=== PATIENT | male | born 1950 | race Hispanic/Latino ===

== ENCOUNTER 2017-05-13 15:23 | Inpatient (IN) | payer BC ==
[2017-05-13 15:25] VITALS: BMI 22.2
[2017-05-13] MEDS ORDERED: Iodixanol 320 MG/ML 100 ML BOTTLE IV ONE (15:31)
--- NOTE | 2017-05-13 15:40 | CT ---
EXAM: CT Head Without Intravenous Contrast CLINICAL HISTORY: 58 years old, male; Signs and symptoms; Other: Weakness; Additional info: Code stroke TECHNIQUE: Axial computed tomography images of the head/brain without intravenous contrast. All CT scans at this facility use one or more dose reduction techniques, viz.: automated exposure control; ma/kV adjustment per patient size (including targeted exams where dose is matched to indication; i.e. head); or iterative reconstruction technique. COMPARISON: No relevant prior studies available. FINDINGS: Brain: There is mild ill-defined patchy hypodensity within the bilateral cerebral periventricular white matter, consistent with chronic microvascular ischemic changes. There is mild diffuse cerebral atrophy present, consistent with this patient's age. The cortical sullivan / white matter interfaces are preserved throughout the brain. Examination of the posterior fossa demonstrates no significant abnormality. No hemorrhage. Ventricles: The ventricular system demonstrates mild diffuse compensatory enlargement. Bones/joints: Unremarkable. No acute fracture. Soft tissues: Unremarkable. Vasculature: There is no hyperdense MCA sign. Sinuses: Unremarkable as visualized. No acute sinusitis. Mastoid air cells: Unremarkable as visualized. No mastoid effusion. IMPRESSION: No acute infarction, masses or hemorrhage is seen. No acute intracranial abnormality is identified. Diffuse age-related cerebral atrophy and mild chronic microvascular white matter ischemic changes, without evidence of an acute intracranial abnormality. If there is a high clinical concern for acute stroke, MRI of the brain with diffusion imaging or short-term followup CT may be considered for further evaluation.
[2017-05-13 16:07] LABS: BASO # 0.03 K/mm3 (0.0-2.0); BASO % 0.4 % (0.0-3.0); EOS % 0.4 % (1.5-5.0); GRAN # 5.68 (1.4-6.5); GRAN % 83.7 % (50.0-68.0); HEMATOCRIT 41.4 % (42.0-52.0); LYMPH # 0.6 (1.2-3.4); LYMPH % 9.3 % (22.0-35.0); MEAN CELL VOLUME 87.5 fl (80.0-105.0); MEAN CORPUSCULAR HEMOGLOBIN 28.3 pg (25.0-35.0); MEAN CORPUSCULAR HGB CONC 32.4 g/dl (31.0-37.0); MEAN PLATELET VOLUME 10.7 fl (7.0-11.0); MONO # 0.4 (0.1-0.6); MONO % 6.2 % (1.0-6.0); RED CELL DISTRIBUTION WIDTH 13.9 % (11.5-14.5); WHITE BLOOD COUNT 6.8 10^3/ul (4.5-11.0)
[2017-05-13 16:16] LABS: ALB/GLOB RATIO 1.6 (1.1-1.8); ALKALINE PHOSPHATASE 62 U/L (38-126); ALT/SGPT 35 U/L (7-56); AST/SGOT 25 U/L (17-59); BILIRUBIN,TOTAL 1.7 mg/dL (0.2-1.3); BLOOD UREA NITROGEN 29 mg/dL (7-21); CALCIUM 9.2 mg/dL (8.4-10.5); CARBON DIOXIDE 28 mmol/L (21-33); CHLORIDE 99 mmol/L (98-107); CHOLESTEROL 171 mg/dL (130-200); GFR AFRICAN-AMERICAN > 60; GLUCOSE,RANDOM 280 mg/dL (70-110); MAGNESIUM 1.8 mg/dL (1.7-2.2); PHOSPHOROUS 3.2 mg/dL (2.5-4.5); SODIUM 137 mmol/L (132-148); TOTAL PROTEIN 5.9 g/dL (5.8-8.3)
[2017-05-13 16:17] LABS: INR 1.44 (0.93-1.08); PARTIAL THROMBOPLASTIN TIME 28.4 Seconds (25.1-36.5)
[2017-05-13 16:30] LABS: TROPONIN I 0.05 ng/mL
[2017-05-13] MEDS ORDERED: ALTEPLASE IV ONE (16:30)
[2017-05-13] MEDS ORDERED: WATER FOR INJECTION IV ONE (16:30)
[2017-05-13 17:01] LABS: VENOUS BLOOD GAS BASE EXCESS 2.3 mmol/L (0.0-2.0); VENOUS BLOOD PH 7.51 (7.32-7.43)
--- NOTE | 2017-05-13 17:03 | RAD ---
HISTORY: stroke alert COMPARISON: No prior. FINDINGS: LUNGS: No active pulmonary disease. PLEURA: No significant pleural effusion identified, no pneumothorax apparent. CARDIOVASCULAR: Moderate cardiomegaly. Sternal wires. Single lead pacemaker. OSSEOUS STRUCTURES: No significant abnormalities. VISUALIZED UPPER ABDOMEN: Normal. OTHER FINDINGS: None. IMPRESSION: No active disease.
--- NOTE | 2017-05-13 17:18 | CP.PCM.HP ---
<ZionMaggie - Last Filed: 05/13/17 17:48> History of Present Illness - History of Present Illness History of Present Illness: H&P for Hospitalist, Sandra Donovan PGY2 This is a 66yo M with past medical history of CAD s/p CABG and AICD, NIDDM who came to ED for weakness. Patient reports this morning he "wasn't feeling right" . He reports he was sitting on the cough and then he went to get up to answer his neighbor at the door when his "legs went weak". He states that he did not lose consciousness or hit his head. As per ED, the patient's neighbor kept knocking at the door around 12pm and the patient was not answering. The neighbor had the fire department open the door and they found the patient on the floor. Upon arrival to ED, patient was flaccid on L upper and lower extremity. Code stroke was called and tPA was not given. When I examined that patient, he was A&O x [address] King on Monday this week for swelling in his legs and was prescribed Furosemide. He denies having any chest pain, headache, shortness of breath, nausea/vomiting/diarrhea, fever/ chills, numbness/tingling, dysuria or hematuria. Past medical history: CAD, NIDDM, HTN Past surgical history: ICD placement, CABG (12yrs ago), Hernia repair (40yrs ago ) Home meds: Lisinopril, Plavix, Metformin/Glyburide, Coreg, ASA, Furosemide, Atorvastatin Allergies: NKDA Social history: Former smoker- quit 12yrs ago, denies EtOH or drug use. Lives alone, does not drive, but otherwise takes care of himself PMD: Dr. Hans King Present on Admission - Present on Admission Any Indicators Present on Admission: No Review of Systems - Review of Systems All systems: reviewed and no additional remarkable complaints except Review of Systems: + weakness Past Patient History - Infectious Disease Hx of Infectious Diseases: None - Past Social History Smoking Status: Former Smoker (quit 12yrs ago- used to smoke 1ppd) Alcohol: None Drugs: Denies Home Situation {Lives}: Alone - CARDIAC Hx Atrial Fibrillation: Yes Hx Hypertension: Yes Hx Pacemaker: Yes - ENDOCRINE/METABOLIC Hx Diabetes Mellitus Type 2: Yes - PSYCHIATRIC Hx Substance Use: No Meds Allergies/Adverse Reactions: Allergies Allergy/AdvReac Type Severity Reaction Status Date / Time No Known Allergies Allergy Verified 05/13/17 20:11 Physical Exam - Constitutional Appears: No Acute Distress - Head Exam Head Exam: ATRAUMATIC, NORMAL INSPECTION, NORMOCEPHALIC - Eye Exam Eye Exam: Normal appearance, PERRL Pupil Exam: NORMAL ACCOMODATION, PERRL - ENT Exam ENT Exam: Mucous Membranes Moist - Respiratory Exam Respiratory Exam: Clear to Auscultation Bilateral, NORMAL BREATHING PATTERN. absent: Rales, Rhonchi, Wheezes - Cardiovascular Exam Cardiovascular Exam: REGULAR RHYTHM, +S1, +S2. absent: Gallop, Rubs, Systolic Murmur Additional comments: AICD in L chest in place - GI/Abdominal Exam GI & Abdominal Exam: Normal Bowel Sounds, Soft. absent: Mass, Rebound, Rigid, Tenderness - Extremities Exam Extremities exam: Positive for: pedal edema (+ 2 bilaterally ). Negative for: normal inspection (redness and abrasion on bilateral shins and knees ) - Neurological Exam Neurological exam: Alert, Oriented x3 - Expanded Neurological Exam Expanded Patient oriented to: person, place, time Cranial nerves: EOM's Intact: Normal, Facial Palsey w/Forehead Movement: Abnormal Left, Facial Sensation: Normal, Tongue Deviation: Normal Cerebellar Function: Finger to Nose: Abnormal Left Upper motor neuron: Babinski Sign: Normal, Amadou Neglect: Normal, Pronator Drift : Abnormal Left, Sensory Extinction: Normal Sensory exam: Lower Extremity 2 Point Discrimination: Normal, Lower Extremity Light Touch: Normal, Upper Extremity 2 Point Discrimination: Normal, Upper Extremity Light Touch: Normal Neuro motor strength exam: Left Upper Extremity: 5, Right Upper Extremity: 4, Left Lower Extremity: 4, Right Lower Extremity: 5 Coma Scale Eye Opening: SPONTANEOUS Coma Scale Motor Response: OBEYS COMMANDS Coma Scale Verbal: Oriented Coma Scale Total: 15 - Psychiatric Exam Psychiatric exam: Normal Affect, Normal Mood - Skin Skin Exam: Abrasion (on shins and knees bilaterally ), Dry, Warm Results - Vital Signs Recent Vital Signs: Last Vital Signs Temp 98 F 05/13/17 15:28 Pulse 95 H 05/13/17 16:34 Resp 18 05/13/17 16:34 BP 123/77 05/13/17 16:34 Pulse Ox 98 05/13/17 16:34 - Labs Result Diagrams: 05/13/17 15:54 05/13/17 15:54 Labs: Laboratory Results - last 24 hr 05/13/17 05/13/17 05/13/17 15:54 15:54 15:54 WBC 6.8 RBC 4.73 Hgb 13.4 L Hct 41.4 L MCV 87.5 MCH 28.3 MCHC 32.4 RDW 13.9 Plt Count 164 MPV 10.7 Gran % 83.7 H Lymph % (Auto) 9.3 L Schleicher % (Auto) 6.2 H Eos % (Auto) 0.4 L Baso % (Auto) 0.4 Gran # 5.68 Lymph # 0.6 L Schleicher # 0.4 Eos # 0.0 Baso # 0.03 PT 15.8 H INR 1.44 H APTT 28.4 pO2 VBG pH VBG pCO2 VBG HCO3 VBG Total CO2 VBG O2 Sat (Calc) VBG Base Excess VBG Potassium Glucose Lactate FiO2 Sodium 137 Potassium 4.0 Chloride 99 Carbon Dioxide 28 Anion Gap 15 BUN 29 H Creatinine 1.4 Est GFR ( Amer) > 60 Est GFR (Non-Af Amer) 52 Random Glucose 280 H Calcium 9.2 Phosphorus 3.2 Magnesium 1.8 Total Bilirubin 1.7 H AST 25 ALT 35 Alkaline Phosphatase 62 Troponin I 0.05 Total Protein 5.9 Albumin 3.6 Globulin 2.3 Albumin/Globulin Ratio 1.6 Triglycerides 99 Cholesterol 171 LDL Cholesterol Direct 133 H HDL Cholesterol 35 Venous Blood Potassium BBK History Checked 05/13/17 05/13/17 15:54 16:52 WBC RBC Hgb Hct MCV MCH MCHC RDW Plt Count MPV Gran % Lymph % (Auto) Schleicher % (Auto) Eos % (Auto) Baso % (Auto) Gran # Lymph # Schleicher # Eos # Baso # PT INR APTT pO2 181 H VBG pH 7.51 H VBG pCO2 31.0 L VBG HCO3 24.7 VBG Total CO2 25.7 VBG O2 Sat (Calc) 100.0 H VBG Base Excess 2.3 H VBG Potassium 6.7 H* Glucose 265 H Lactate 2.6 H FiO2 21.0 Sodium 137.0 Potassium Chloride 102.0 Carbon Dioxide Anion Gap BUN Creatinine Est GFR ( Amer) Est GFR (Non-Af Amer) Random Glucose Calcium Phosphorus Magnesium Total Bilirubin AST ALT Alkaline Phosphatase Troponin I Total Protein Albumin Globulin Albumin/Globulin Ratio Triglycerides Cholesterol LDL Cholesterol Direct HDL Cholesterol Venous Blood Potassium 6.7 H* BBK History Checked No verified bt Assessment & Plan - Assessment and Plan (Free Text) Assessment: This is a 66yo M with past medical history of CAD s/p CABG and AICD, NIDDM admitted for acute CVA. Plan: 1. CVA - Head CT negative - CTA of Head/Neck was negative for significant stenosis or occlusion - Neuro consulted - Neuro check q4h - Passed bedside swallow - ASA, Lipitor - Aspiration precaution - Physical therapy eval 2. Leg edema - Hx of CAD and possible CHF (no echo on record) - EKG showed NSR with prolonged QT - CXR showed no active disease - Cardio consulted - Will obtain echo and trend troponin - Continue Plavix 3. Dehydration - BUN/Cr slightly elevated - NS@50 - Monitor I&O 4. Hx of HTN - Normotensive on admission - Hold BP meds for permissive HTN for CVA - Continue to monitor BP 5. NIDDM - Will obtain HgbA1c - ISS, blood glucose monitoring - Carb consistent/heart healthy diet GI ppx: Pepcid DVT ppx: SCDs Case seen, reviewed and discussed with Dr. Luu. Sandra Donovan PGY2 - Date & Time Date: 05/13/17 Time: 17:56 <Qiana Luu - Last Filed: 05/14/17 17:32> Results - Vital Signs Recent Vital Signs: Last Vital Signs Temp 97.8 F 05/14/17 12:00 Pulse 98 H 05/14/17 14:00 Resp 18 05/14/17 12:00 BP 109/69 05/14/17 12:00 Pulse Ox 99 05/14/17 06:00 - Labs Result Diagrams: 05/14/17 06:30 05/14/17 06:30 Labs: Laboratory Results - last 24 hr 05/13/17 05/13/17 05/13/17 17:00 20:25 21:50 WBC RBC Hgb Hct MCV MCH MCHC RDW Plt Count MPV Gran % Lymph % (Auto) Schleicher % (Auto) Eos % (Auto) Baso % (Auto) Gran # Lymph # Schleicher # Eos # Baso # PT INR pCO2 pO2 59 H HCO3 ABG pH ABG Total CO2 ABG O2 Saturation ABG O2 Content ABG Base Excess ABG Hemoglobin ABG Carboxyhemoglobin POC ABG HHb (Measured) ABG Methemoglobin ABG O2 Capacity VBG pH 7.43 VBG pCO2 41.0 VBG HCO3 27.2 VBG Total CO2 28.5 H VBG O2 Sat (Calc) 94.0 H VBG Base Excess 2.6 H VBG Potassium 4.3 Hgb O2 Saturation Sodium 137.0 Chloride 100.0 Glucose 233 H Lactate 2.4 H FiO2 21.0 Potassium Carbon Dioxide Anion Gap BUN Creatinine Est GFR ( Amer) Est GFR (Non-Af Amer) Random Glucose Calcium Total Bilirubin AST ALT Alkaline Phosphatase Lactate Dehydrogenase 617 Total Creatine Kinase 139 Troponin I 0.28 H* D Total Protein Albumin Globulin Albumin/Globulin Ratio Venous Blood Potassium 4.3 Blood Type Confirm A POSITIVE 05/14/17 05/14/17 05/14/17 06:30 06:30 06:30 WBC 6.5 RBC 4.78 Hgb 13.6 L Hct 41.9 L MCV 87.7 MCH 28.5 MCHC 32.5 RDW 14.0 Plt Count 173 MPV 10.7 Gran % 67.9 Lymph % (Auto) 22.3 Schleicher % (Auto) 7.6 H Eos % (Auto) 1.7 Baso % (Auto) 0.5 Gran # 4.38 Lymph # 1.4 Schleicher # 0.5 Eos # 0.1 Baso # 0.03 PT 14.9 H INR 1.35 H pCO2 pO2 HCO3 ABG pH ABG Total CO2 ABG O2 Saturation ABG O2 Content ABG Base Excess ABG Hemoglobin ABG Carboxyhemoglobin POC ABG HHb (Measured) ABG Methemoglobin ABG O2 Capacity VBG pH VBG pCO2 VBG HCO3 VBG Total CO2 VBG O2 Sat (Calc) VBG Base Excess VBG Potassium Hgb O2 Saturation Sodium 136 Chloride 102 Glucose Lactate FiO2 Potassium 3.9 Carbon Dioxide 25 Anion Gap 13 BUN 23 H Creatinine 1.3 Est GFR ( Amer) > 60 Est GFR (Non-Af Amer) 57 Random Glucose 127 H Calcium 9.0 Total Bilirubin 1.3 AST 22 ALT 29 Alkaline Phosphatase 67 Lactate Dehydrogenase 542 Total Creatine Kinase 114 Troponin I 0.56 H* D Total Protein 5.8 Albumin 3.5 Globulin 2.3 Albumin/Globulin Ratio 1.5 Venous Blood Potassium Blood Type Confirm 05/14/17 16:30 WBC RBC Hgb Hct MCV MCH MCHC RDW Plt Count MPV Gran % Lymph % (Auto) Schleicher % (Auto) Eos % (Auto) Baso % (Auto) Gran # Lymph # Schleicher # Eos # Baso # PT INR pCO2 34 L pO2 167.0 H HCO3 23.6 ABG pH 7.45 ABG Total CO2 24.6 ABG O2 Saturation 100.2 H ABG O2 Content 19.6 ABG Base Excess 0.2 ABG Hemoglobin 14.1 ABG Carboxyhemoglobin 2.2 H POC ABG HHb (Measured) -0.2 L ABG Methemoglobin 0.8 ABG O2 Capacity 19.6 VBG pH VBG pCO2 VBG HCO3 VBG Total CO2 VBG O2 Sat (Calc) VBG Base Excess VBG Potassium Hgb O2 Saturation 97.2 Sodium Chloride Glucose Lactate FiO2 36.0 Potassium Carbon Dioxide Anion Gap BUN Creatinine Est GFR ( Amer) Est GFR (Non-Af Amer) Random Glucose Calcium Total Bilirubin AST ALT Alkaline Phosphatase Lactate Dehydrogenase Total Creatine Kinase Troponin I Total Protein Albumin Globulin Albumin/Globulin Ratio Venous Blood Potassium Blood Type Confirm Attending/Attestation - Attestation I have personally seen and examined this patient.: Yes I have fully participated in the care of the patient.: Yes I have reviewed all pertinent clinical information: Yes Notes (Text): I have seen and examined the patient at bedside. Agree with the above note with the following additions/ exceptions: Briefly this is 66 year old male with history of CAD s/p CABG, AICD, DM-2, HTN, former smoker who was brought by EMS and code stroke was called. TPA was not given as he presented outside 4.5 hours window and clinically symptoms were improving. He initially failed bedside swallow eval. NHISS was 10. Patient is more awake now as compare to when he originally presented. CT head negative. MRI cannot be done as he has AICD. CT neck is pending. Neurologist on board. Another bedside swallow eval will be done. Will start aspirin and lipitor if he will pass swallow eval. Echo pending. PT eval will be ordered. Upon discharge patient will follow up with Dr King. Patient states that he follows up with Dr King regularly and does not have PMD. Dr Qiana Luu
--- NOTE | 2017-05-13 17:27 | CT ---
PROCEDURE: CT Angiography of the neck with contrast HISTORY: stroke alert COMPARISON: None available. TECHNIQUE: Contiguous axial images of the neck were obtained from the level of the skull-base to the superior mediastinum in the arteriographic phase of enhancement. Coronal and sagittal reformats or also generated. IV contrast dose: 100 cc of Visipaque 320 Radiation Dose - DLP: 514 mGy-cm This CT exam was performed using one or more of the following dose reduction techniques: Automated exposure control, adjustment of the mA and/or kV according to patient size, and/or use of iterative reconstruction technique. FINDINGS: RIGHT CAROTID ARTERIES: Common Carotid Artery: Normal. Carotid Bifurcation: Normal. Internal Carotid Artery:There is a critical stenosis of the proximal right internal carotid probably greater than 95 percent. This area is heavily calcified. The finding is best appreciated on axial image 199 series 3. External Carotid Artery (proximal branches): Normal. LEFT CAROTID ARTERIES: Common Carotid Artery: Normal. Carotid Bifurcation: Normal. Internal Carotid Artery:There is an approximate 50 percent stenosis of the left internal carotid at its origin. External Carotid Artery (proximal branches): Severe narrowing at its origin VERTEBRAL ARTERIES: Right Vertebral Artery: Dominant Left Vertebral Artery: The origin is obscured by overlying densely enhanced veins. The left vertebral is diminished in size compared to the right OTHER FINDINGS: The report concurs with the preliminary [facility] report IMPRESSION: Critical stenosis of the proximal right internal carotid. 50 percent stenosis of the proximal left internal carotid PROCEDURE: CT Angiography of the Brain. HISTORY: stroke alert COMPARISON: None available. TECHNIQUE: CT angiography of the intracranial arteries was performed. Coronal and sagittal maximum intensity projection reformated images were generated. This CT exam was performed using one or more of the following dose reduction techniques: Automated exposure control, adjustment of the mA and/or kV according to patient size, and/or use of iterative reconstruction technique. FINDINGS: INTERNAL CEREBRAL ARTERIES: Unremarkable. The skull base, petrous, cavernous and supraclinoid segments are bilaterally widely patent. ANTERIOR CEREBRAL ARTERIES: Unremarkable. A1 and A2 segments are widely patent. Smaller distal branches unremarkable, as visualized. MIDDLE CEREBRAL ARTERIES: Unremarkable. M1 and M2 segments are widely patent. Perisylvian branches grossly symmetric. POSTERIOR CIRCULATION: Basilar Artery: Unremarkable. Distal Vertebral Arteries: Unremarkable. Posterior Cerebral Arteries: Unremarkable. Posterior Inferior Cerebellar Arteries: Unremarkable. ANEURYSM/ VASCULAR MALFORMATIONS: None. OTHER FINDINGS: The report concurs with the preliminary [facility] report IMPRESSION: No significant intracranial stenosis or occlusion
--- NOTE | 2017-05-13 17:34 | ED PDOC ---
Arrival/HPI - General Chief Complaint: Weakness/Neurological Deficit Time Seen by Provider: 05/13/17 15:24 Historian: Patient, EMS - History of Present Illness Narrative History of Present Illness (Text): 05/13/17 16:00 A 58 year old male, whose past medical history includes pacemaker, diabetes, asthma, and hypertension, presents to the emergency department brought in by EMS for stroke alert. At first the patient stated that he had left sided weakness which began 1 hour prior to arrival. The patient denies any trauma, chest pain, fever, shortness of breath, cough, or any other complaints at this time. Upon further questioning the patient states his symptoms began around 11: 00 this morning and when a friend came to visit him at 12:30 he was unable to answer the door. Time/Duration: Prior to Arrival, 1/2 hour, 1 hour Symptom Onset: Sudden Severity Level: Mild Activities at Onset: Light Context: Home Past Medical History - Provider Review Nursing Documentation Reviewed: Yes - Infectious Disease Hx of Infectious Diseases: None - Cardiac Hx Atrial Fibrillation: Yes Hx Hypertension: Yes Hx Pacemaker: Yes - Endocrine/Metabolic Hx Diabetes Mellitus Type 2: Yes - Psychiatric Hx Substance Use: No Family/Social History - Physician Review Nursing Documentation Reviewed: Yes Family/Social History: No Known Family HX Smoking Status: Unknown If Ever Smoked Hx Alcohol Use: No Hx Substance Use: No Allergies/Home Meds Allergies/Adverse Reactions: Allergies No Known Allergies Allergy (Unverified 05/13/17 15:25) Home Medications: Home Meds Medication Instructions Recorded Confirmed Albuterol Sulfate [Proair Hfa] 1 puff INH DAILY 05/13/17 05/13/17 Amoxicillin [Amoxil 500 mg Cap] 500 mg PO TID 05/13/17 05/13/17 Carvedilol [Coreg] 25 mg PO BID 05/13/17 05/13/17 Clopidogrel [Plavix] 75 mg PO DAILY 05/13/17 05/13/17 Glyburide/Metformin HCl 5 mg PO BID 05/13/17 05/13/17 [Glyburide-Metformin 5-500 mg] Lisinopril [Zestril] 40 mg PO DAILY 05/13/17 05/13/17 Review of Systems - Physician Review All systems were reviewed & negative as marked: Yes - Review of Systems Constitutional: absent: Fevers Respiratory: absent: SOB, Cough Cardiovascular: absent: Chest Pain Neurological: Other (left sided weakness) Physical Exam Vital Signs Reviewed: Yes Vital Signs Temp Pulse Resp BP Pulse Ox 05/13/17 17:37 97.7 F 95 H 19 120/51 L 95 05/13/17 16:34 95 H 18 123/77 98 05/13/17 15:28 98 F 80 20 110/68 97 Temperature: Afebrile Blood Pressure: Normal Pulse: Regular Respiratory Rate: Normal Appearance: Positive for: Well-Appearing, Non-Toxic, Comfortable Pain Distress: None Mental Status: Positive for: Alert and Oriented X 3 Finger Stick Blood Glucose: 314 - Systems Exam Head: Present: Atraumatic, Normocephalic Pupils: Present: PERRL Extroacular Muscles: Present: EOMI Conjunctiva: Present: Normal Mouth: Present: Moist Mucous Membranes Neck: Present: Normal Range of Motion Respiratory/Chest: Present: Clear to Auscultation, Good Air Exchange, Other ( chest wall pacemaker). No: Respiratory Distress, Accessory Muscle Use Cardiovascular: Present: Murmurs (systolic murmur), Normal S1, S2 Abdomen: Present: Normal Bowel Sounds. No: Tenderness, Distention, Peritoneal Signs Back: Present: Normal Inspection Upper Extremity: Present: Normal Inspection. No: Cyanosis, Edema Lower Extremity: Present: Normal Inspection. No: Edema Neurological: Present: GCS=15, CN II-XII Intact, Speech Normal, Other (left sided cranial nerve neglect; decreased strength in upper and lower extremities; no sensory deficits) Skin: Present: Warm, Dry, Normal Color. No: Rashes Psychiatric: Present: Alert, Oriented x 3, Normal Insight, Normal Concentration Medical Decision Making ED Course and Treatment: 05/13/17 16:00 Impression: A 58 year old male who is possible code stroke Differential Diagnosis included but are not limited to: Plan: -- EKG -- Chest X-ray -- ECHO comp -- Labs -- Aspirin, lipitor, plavix, insulin, protonix -- Reassess and disposition Progress Notes: Spoke to Dr. Parish who initially recommended TPA, but upon getting further history he now recommends aspirin therapy and he will admit ad accept the patient to telemetry. 05/13/17 16:39 EKG: Ordered, reviewed, and independently interpreted the EKG. Rate : 98 BPM Rhythm : NSR Interpretation : No ST-segment elevations or depressions, no T-wave inversions, normal intervals. Comparison : No previous EKG for comparison. - Critical Care Critical Care Minutes: 60 minutes - Lab Interpretations Lab Results: 05/13/17 15:54 05/13/17 15:54 Lab Results 05/13/17 15:54: Blood Type Pending, Antibody Screen Pending, BBK History Checked No verified bt 05/13/17 15:54: Sodium 137, Potassium 4.0, Chloride 99, Carbon Dioxide 28, Anion Gap 15, BUN 29 H, Creatinine 1.4, Est GFR ( Amer) > 60, Est GFR ( Non-Af Amer) 52, Random Glucose 280 H, Calcium 9.2, Phosphorus 3.2, Magnesium 1.8, Total Bilirubin 1.7 H, AST 25, ALT 35, Alkaline Phosphatase 62, Troponin I 0.05, Total Protein 5.9, Albumin 3.6, Globulin 2.3, Albumin/Globulin Ratio 1.6, Triglycerides 99, Cholesterol 171, LDL Cholesterol Direct 133 H, HDL Cholesterol 35 05/13/17 15:54: PT 15.8 H, INR 1.44 H, APTT 28.4 05/13/17 15:54: WBC 6.8, RBC 4.73, Hgb 13.4 L, Hct 41.4 L, MCV 87.5, MCH 28.3, MCHC 32.4, RDW 13.9, Plt Count 164, MPV 10.7, Gran % 83.7 H, Lymph % (Auto) 9.3 L, [place] % (Auto) 6.2 H, Eos % (Auto) 0.4 L, Baso % (Auto) 0.4, Gran # 5.68, Lymph # 0.6 L, [place] # 0.4, Eos # 0.0, Baso # 0.03 - RAD Interpretation Radiology Orders: 05/13/17 15:25 CTA HEAD & NECK BUNDLE [CT] Stat HEAD W/O (CODE STROKE) [CT] Stat CHEST PORTABLE [RAD] Stat - Medication Orders Current Medication Orders: Aspirin (Aspirin Chewable) 81 mg PO DAILY ANAHY Atorvastatin Calcium (Lipitor) 80 mg PO DIN ANAHY Clopidogrel Bisulfate (Plavix) 75 mg PO DAILY ANAHY Insulin Human Regular (Humulin R Med) 0 units SC ACHS ANAHY PRN Reason: Protocol Pantoprazole Sodium (Protonix Ec Tab) 40 mg PO ACB ANAHY Discontinued Medications Aspirin (Aspirin Supp) 300 mg RC STAT STA Stop: 05/13/17 16:43 Last Admin: 05/13/17 16:58 Dose: 300 mg MAR Pain/Vitals Document 05/13/17 16:58 LA (Rec: 05/13/17 17:06 LA [id number]) Pain Reassessment Is This A Pain ReAssessment? No Sleep Is patient sleeping during reassessment? No Presence of Pain Presence of Pain No NIHSS Scale ([place]) Time Performed: 15:30 - How Severe is the Stoke Baseline Level of Consciousness: 1=Drowsy LOC to Questions: 1=One correct LOC to commands: 0=Obeys both correctly Best Gaze: 1=Partial gaze palsy Visual: 0=No visual loss Facial: 0=Normal Motor Arm - Left: 3=No effort against gravity (falls immediately) Motor Arm - Right: 0=No drift Motor Leg - Left: 3=No effort against gravity (falls immediately) Motor Leg - Right: 0=No drift Limb Ataxia: 0=Absent Sensory: 0=Normal Best Language: 0=No aphasia Dysarthia: 0=Normal articulation Extinction & Inattention (Neglect): 1=Partial neglect (mild fermin-attention) Score: 10 Risk Level: Mod Stroke Risk rTPA Inclusion/Exclusion - Refusal of Treatment Patient Refused Treatment: No - Inclusion Criteria for Altepase Patient is 18 years or Older: Yes The Clinical Diagnosis of Ischemic Stroke That is Causing a Potentially Disabling Neurological Deficit: Yes Time of Onset is Well Established to be Less Than 270 Minute Before Treatment Would Begin: No Risk/Benefit Discussed With Patient/Family Member Present: Yes - Warning to TPA With Conditions Condition: Rapid Improvement - Scribe Statement The provider has reviewed the documentation as recorded by the Kleveribyessy Webber Provider Scribe Attestation: All medical record entries made by the Scribe were at my direction and personally dictated by me. I have reviewed the chart and agree that the record accurately reflects my personal performance of the history, physical exam, medical decision making, and the department course for this patient. I have also personally directed, reviewed, and agree with the discharge instructions and disposition. Disposition/Present on Arrival - Present on Arrival Any Indicators Present on Arrival: No History of DVT/PE: No History of Uncontrolled Diabetes: No Urinary Catheter: No History of Decub. Ulcer: No History Surgical Site Infection Following: None - Disposition Have Diagnosis and Disposition been Completed?: Yes Diagnosis: TIA (transient ischemic attack) Disposition: HOSPITALIZED Disposition Time: 16:45 Patient Plan: Admission, Telemetry Condition: GUARDED
[2017-05-13] MEDS ORDERED: Sodium Chloride 0.9% 1,000 ML IV SCH (18:00)
--- NOTE | 2017-05-13 18:32 | CON ---
DATE: HISTORY OF PRESENT ILLNESS: This is a 58-year-old male who came to hospital and a code stroke was called. The patient's CAT scan of the head was done which is normal and cerebral atrophy and called to evaluate the patient. A 58-year-old white male who came to the emergency room with code stroke with weakness on the left side which is improving and do not known exactly when these symptoms started and appears it is over the 3-hour window period. Symptoms are improving. PAST MEDICAL HISTORY: Not significant. PHYSICAL EXAMINATION: HEENT: Normocephalic and atraumatic. NEUROLOGIC: Awake and oriented to self. Cranial nerve II-XII were tested. Pupils reactive. EOM intact. Visual mesa full. Motor examination; weakness of the left upper 1 to 2/5 and left lower 2/5. Both plantaris are downgoing. Sensory appears intact, slightly decreased on the left side. Cerebellar and gait deferred. IMPRESSION AND PLAN: Right hemispheric stroke and the patient is not a candidate for TPA. The patient is already on Plavix. We will add aspirin and workup in progress. Continue present management. We will follow up. CT of the head was done with report pending. Buzz Parish MD
[2017-05-13 21:16] LABS: VENOUS BLOOD GAS BASE EXCESS 2.6 mmol/L (0.0-2.0); VENOUS BLOOD PH 7.43 (7.32-7.43)
[2017-05-13] MEDS: Insulin Reg-MEDIUM-Coverage SC SCH (21:30)
[2017-05-13 22:50] LABS: TROPONIN I 0.28 ng/mL
[2017-05-14] MEDS ORDERED: Pneumococcal 23-Valent Vaccine IM ONE (00:09)
[2017-05-14] MEDS ORDERED: Influenza Vaccine 60 mcg/0.5 mL SYR (4YR UP) IM ONE (00:09)
[2017-05-14 07:04] LABS: BASO # 0.03 K/mm3 (0.0-2.0); BASO % 0.5 % (0.0-3.0); EOS # 0.1 (0.0-0.7); EOS % 1.7 % (1.5-5.0); GRAN # 4.38 (1.4-6.5); GRAN % 67.9 % (50.0-68.0); HEMATOCRIT 41.9 % (42.0-52.0); LYMPH # 1.4 (1.2-3.4); LYMPH % 22.3 % (22.0-35.0); MEAN CELL VOLUME 87.7 fl (80.0-105.0); MEAN CORPUSCULAR HEMOGLOBIN 28.5 pg (25.0-35.0); MEAN CORPUSCULAR HGB CONC 32.5 g/dl (31.0-37.0); MEAN PLATELET VOLUME 10.7 fl (7.0-11.0); MONO # 0.5 (0.1-0.6); MONO % 7.6 % (1.0-6.0); WHITE BLOOD COUNT 6.5 10^3/ul (4.5-11.0)
[2017-05-14 07:45] LABS: INR 1.35 (0.93-1.08)
[2017-05-14 07:55] LABS: ALB/GLOB RATIO 1.5 (1.1-1.8); ALKALINE PHOSPHATASE 67 U/L (38-126); ALT/SGPT 29 U/L (7-56); AST/SGOT 22 U/L (17-59); BILIRUBIN,TOTAL 1.3 mg/dL (0.2-1.3); BLOOD UREA NITROGEN 23 mg/dL (7-21); CARBON DIOXIDE 25 mmol/L (21-33); CHLORIDE 102 mmol/L (98-107); GFR AFRICAN-AMERICAN > 60; GLUCOSE,RANDOM 127 mg/dL (70-110); POTASSIUM 3.9 mmol/L (3.6-5.0); SODIUM 136 mmol/L (132-148); TOTAL PROTEIN 5.8 g/dL (5.8-8.3); TROPONIN I 0.56 ng/mL
[2017-05-14] MEDS: Insulin Reg-MEDIUM-Coverage SC SCH ×4 (08:28→23:25)
[2017-05-14] MEDS: Pantoprazole 40 mg EC Tab PO SCH (08:33)
--- NOTE | 2017-05-14 09:13 | CARD ---
APPROVED REPORT EKG Measurement Heart [id number] <Conclusion> Normal sinus rhythm LBBB STTW changes
--- NOTE | 2017-05-14 09:25 | CARD ---
APPROVED REPORT EKG Measurement Heart [id number] <Conclusion> Normal sinus rhythm LBBB STTW changes No change
--- NOTE | 2017-05-14 09:39 | CARD ---
APPROVED REPORT EKG Measurement Heart [id number] [place] 142P55 [id number] <Conclusion> Normal sinus rhythm Possible Left atrial enlargement LBBB STTW changes No change
[2017-05-14] MEDS ORDERED: Enoxaparin 40 mg Syringe SC SCH (10:00)
--- NOTE | 2017-05-14 11:07 | CP.PCM.PN ---
<Tyree Cruz - Last Filed: 05/14/17 11:03> Subjective - Date & Time of Evaluation Date of Evaluation: 05/14/17 Time of Evaluation: 11:03 - Subjective Subjective: Pt seen and examined at bedside. Pt with no acute events overnight as per nursing. Pt does still admit to left sided weakness. He also states he has no trouble speaking. Pt denies CP, SOB, N/V/D, fever, chills. Objective - Vital Signs/Intake and Output Vital Signs (last 24 hours): Temp Pulse Resp BP Pulse Ox 98.9 F 89 18 109/69 99 05/14/17 06:00 05/14/17 06:00 05/14/17 06:00 05/14/17 06:00 05/14/17 06:00 Intake and Output: 05/14/17 05/14/17 06:59 18:59 Intake Total 600 600 Balance 600 600 - Medications Medications: Current Medications Aspirin (Aspirin Chewable) 81 mg PO DAILY [facility] Last Admin: 05/14/17 10:36 Dose: 81 mg Atorvastatin Calcium (Lipitor) 80 mg PO DIN ANAHY Clopidogrel Bisulfate (Plavix) 75 mg PO DAILY [facility] Last Admin: 05/14/17 10:35 Dose: 75 mg Heparin Sodium (Porcine) (Heparin) 5,000 units SC Q12 ANAHY PRN Reason: Protocol Last Admin: 05/14/17 10:36 Dose: 5,000 units Insulin Human Regular (Humulin R Med) 0 units SC ACHS [facility] PRN Reason: Protocol Last Admin: 05/14/17 08:28 Dose: Not Given Pantoprazole Sodium (Protonix Ec Tab) 40 mg PO ACB [facility] Last Admin: 05/14/17 08:33 Dose: 40 mg - Labs Labs: 05/14/17 06:30 05/14/17 06:30 PT 14.9 SECONDS (9.4-12.5) H 05/14/17 06:30 INR 1.35 (0.93-1.08) H 05/14/17 06:30 APTT 28.4 Seconds (25.1-36.5) 05/13/17 15:54 - Constitutional Appears: Non-toxic, No Acute Distress - Head Exam Head Exam: ATRAUMATIC, NORMAL INSPECTION, NORMOCEPHALIC - Eye Exam Eye Exam: EOMI - ENT Exam ENT Exam: Mucous Membranes Moist - Respiratory Exam Respiratory Exam: Clear to Ausculation Bilateral, NORMAL BREATHING PATTERN. absent: Rales, Rhonchi, Wheezes - Cardiovascular Exam Cardiovascular Exam: RRR, +S1, +S2 - GI/Abdominal Exam GI & Abdominal Exam: Soft, Normal Bowel Sounds. absent: Tenderness - Extremities Exam Extremities Exam: absent: Calf Tenderness, Pedal Edema - Neurological Exam Neurological Exam: Alert, Awake, CN II-XII Intact, Oriented x3 Neuro motor strength exam: Left Upper Extremity: 5, Left Lower Extremity: 3, Right Lower Extremity: 5 Additional comments: Sensation intact b/l - Psychiatric Exam Psychiatric exam: Normal Affect, Normal Mood - Skin Skin Exam: Intact, Normal Color, Warm Assessment and Plan - Assessment and Plan (Free Text) Plan: 66 y/o M with past medical history of CAD s/p CABG and AICD, NIDDM presents with acute ischemic right sided CVA in the setting of NSTEMI. Pt initially had head CT which was negative and Head and neck CTA which showed critical stenosis of the right ICA and 50% stenosis of the left ICA. tPA was not given as patient may have been outside 4.5 hour window. Pt to have speech therapy eval today. Pt also initially had troponin of 0.05 and second troponin elevated to 0.28. After discussion with cardiology, pt will not be anticoagulated at this time due to possible transformation of ischemic to hemorrhagic stroke. Pt will have another Head CT today. Will continue to follow closely. 1. Acute right ischemic CVA - Head CT negative, will order repeat today - Head and neck CTA showed critical stenosis of the right ICA and 50% stenosis of the left ICA - Neuro consulted, recommend ASA - Neuro check q4h - Passed bedside swallow, speech therapy eval today - Aspiration precaution - Physical therapy eval 2. NSTEMI - Troponin 0.05, 0.28, 0.56 - No anticoagulation at this time - Continue ASA and plavix - Echo ordered - Cardiology following, Dr. García 3. Hx of HTN - Allow permissive HTN - Hold HTN meds - Continue to monitor BP 4. NIDDM - HgbA1c 7.6% - ISS - Will monitor glucose closely 5. PPX - Pepcid - SCDs Anthony, PGY-2 <Qiana Luu - Last Filed: 05/15/17 17:17> Objective - Vital Signs/Intake and Output Vital Signs (last 24 hours): Temp Pulse Resp BP Pulse Ox 97.5 F L 105 H 21 114/72 99 05/15/17 13:39 05/15/17 14:00 05/15/17 13:39 05/15/17 13:39 05/14/17 06:00 Intake and Output: 05/15/17 05/15/17 06:59 18:59 Intake Total 1080 720 Output Total 200 Balance 1080 520 - Medications Medications: Current Medications Albuterol/Ipratropium (Duoneb 3 Mg/0.5 Mg (3 Ml) Ud) 3 ml IH [id number] [facility] Last Admin: 05/15/17 13:45 Dose: 3 ml Albuterol/Ipratropium (Duoneb 3 Mg/0.5 Mg (3 Ml) Ud) 3 ml IH Q2H PRN PRN Reason: Shortness of Breath Last Admin: 05/14/17 21:32 Dose: 3 ml Aspirin (Aspirin Chewable) 81 mg PO DAILY [facility] Last Admin: 05/15/17 10:00 Dose: 81 mg Atorvastatin Calcium (Lipitor) 40 mg PO DIN ANAHY Clopidogrel Bisulfate (Plavix) 75 mg PO DAILY [facility] Last Admin: 05/15/17 10:00 Dose: 75 mg Heparin Sodium (Porcine) (Heparin) 5,000 units SC Q12 ANAHY PRN Reason: Protocol Last Admin: 05/15/17 10:00 Dose: 5,000 units Meropenem 1 gm/ Dextrose 100 mls @ 100 mls/hr IVPB Q8 ANAHY PRN Reason: Protocol Stop: 05/15/17 22:59 Last Admin: 05/15/17 14:48 Dose: 100 mls/hr Insulin Human Regular (Humulin R Med) 0 units SC ACHS ANAHY PRN Reason: Protocol Last Admin: 05/15/17 12:59 Dose: 3 units Pantoprazole Sodium (Protonix Ec Tab) 40 mg PO ACB [facility] Last Admin: 05/15/17 10:00 Dose: 40 mg - Labs Labs: 05/15/17 06:30 05/15/17 06:30 PT 14.9 SECONDS (9.4-12.5) H 05/14/17 06:30 INR 1.35 (0.93-1.08) H 05/14/17 06:30 APTT 28.4 Seconds (25.1-36.5) 05/13/17 15:54 Attending/Attestation - Attestation I have personally seen and examined this patient.: Yes I have fully participated in the care of the patient.: Yes I have reviewed all pertinent clinical information, including history, physical exam and plan: Yes Notes (Text): I have seen and examined the patient at bedside. Agree with the above note with the following additions/ exceptions: Briefly this is 66 year old male with history of CAD s/p CABG, AICD, DM-2, HTN, former smoker who was brought by EMS and code stroke was called. TPA was not given as he presented outside 4.5 hours window and clinically symptoms were improving. NHISS was 10. Patient is more awake now as compare to when he originally presented. CT head negative. MRI cannot be done as he has AICD. CT neck showed critical stenosis in R ICA and 50 % in L ICA. Vascular consult placed. He passed swallow eval . Continue aspirin, plavix and lipitor. Echo pending. He is tachypenic today. Abd did not show any hypoxemia and revealed hyperventilation. BNP and d dimer was elevated. Troponins were also elevated. Patient became diaphoretic in the evening. Lasix and one dose of lovenox given. CT revealed bilateral infiltrates probably due to aspiration. Procal ordered and meropenem started. Will consult ID. PT eval will be ordered. Upon discharge patient will follow up with Dr King. Patient states that he follows up with Dr King regularly and does not have PMD. Dr Qiana Luu
--- NOTE | 2017-05-14 12:19 | CT ---
PROCEDURE: CT HEAD WITHOUT CONTRAST. HISTORY: follow up COMPARISON: None available. TECHNIQUE: Axial computed tomography images were obtained through the head/brain without intravenous contrast. Radiation dose: Total exam DLP = 775 mGy-cm. This CT exam was performed using one or more of the following dose reduction techniques: Automated exposure control, adjustment of the mA and/or kV according to patient size, and/or use of iterative reconstruction technique. FINDINGS: HEMORRHAGE: No intracranial hemorrhage. BRAIN: No mass effect or edema. No atrophy or chronic microvascular ischemic changes. VENTRICLES: Unremarkable. No hydrocephalus. CALVARIUM: Unremarkable. PARANASAL SINUSES: Unremarkable as visualized. No significant inflammatory changes. MASTOID AIR CELLS: Unremarkable as visualized. No inflammatory changes. OTHER FINDINGS: None. IMPRESSION: No acute findings
[2017-05-14] MEDS ORDERED: Albuterol-Ipratrop 3 mg / 0.5 (3 ml) UD IH PRN (15:03)
[2017-05-14 16:40] LABS: ARTERIAL BLOOD GAS HCO3 23.6 mmol/L (21-28); ARTERIAL BLOOD GAS O2 CAPACITY 19.6 mL/dl (16-24); ARTERIAL BLOOD GAS O2 CONTENT 19.6 ML/dl (15-23); ARTERIAL BLOOD GAS PH 7.45 (7.35-7.45); ARTERIAL BLOOD HGB O2 SAT 97.2 % (95.0-98.0); CARBOXYHEMOGLOBIN 2.2 % (0.5-1.5); HHB -0.2 % (0-5); METHEMOGLOBIN 0.8 % (0.0-3.0)
--- NOTE | 2017-05-14 17:06 | RAD ---
HISTORY: shortness of breath COMPARISON: 05/13/2017 FINDINGS: LUNGS: There is a new patchy infiltrate in the right lower lobe. There is also probable infiltrate at the left base. The diaphragm is obscured. PLEURA: No significant pleural effusion identified, no pneumothorax apparent. CARDIOVASCULAR: Moderate cardiomegaly OSSEOUS STRUCTURES: No significant abnormalities. VISUALIZED UPPER ABDOMEN: Normal. OTHER FINDINGS: None. IMPRESSION: New bibasilar infiltrates.
[2017-05-14] MEDS ORDERED: Enoxaparin 60 mg Syringe SC ONE (17:15)
[2017-05-14 18:06] LABS: TROPONIN I 0.3 ng/mL
[2017-05-14] MEDS ORDERED: Iohexol 350 MG/100 ML VIAL ONE (18:16)
[2017-05-14] MEDS: Albuterol-Ipratrop 3 mg / 0.5 (3 ml) UD IH SCH (19:32)
--- NOTE | 2017-05-14 19:57 | CT ---
EXAM: CT Angiography Chest With Intravenous Contrast EXAM DATE/TIME: 05/14/2017 5:39 PM CLINICAL HISTORY: 58 years old, male; Signs and symptoms; Other: R/O pe; Prior surgery TECHNIQUE: Axial computed tomographic angiography images of the chest with intravenous contrast using pulmonary embolism protocol. All CT scans at this facility use one or more dose reduction techniques, viz.: automated exposure control; ma/kV adjustment per patient size (including targeted exams where dose is matched to indication; i.e. head); or iterative reconstruction technique. MIP reconstructed images were created and reviewed. Coronal and sagittal reformatted images were created and reviewed. CONTRAST: 96 mL of OMNIPAQUE 350 administered intravenously. COMPARISON: No relevant prior studies available. FINDINGS: LIMITATIONS: Moderate respiratory motion artifact. PULMONARY ARTERIES: Exam is limited for the detection of pulmonary emboli secondary to motion artifact. Allowing for this, no definite pulmonary emboli are seen. AORTA: Exam is nondiagnostic for the detection of aortic dissection because of suboptimal enhancement of the aorta. LUNGS: Areas of dense consolidation in the lower lobes bilaterally, greater on the right, most likely representing a combination of compressive atelectasis related to the bilateral pleural effusions and dependent atelectasis. No evidence of diffuse pulmonary vascular congestion. PLEURAL SPACE: Bilateral pleural effusions, moderate to large on the right and [id number] on the left. No pneumothorax is seen. Negative. HEART: Heart appears moderately to markedly enlarged. Sternotomy wires and multiple mediastinal surgical clips noted, most likely from prior CABG. No evidence of significant pericardial effusion. BONES/JOINTS: Chronic-appearing vertebral compression fracture involving the T7 vertebra, associated with 50% vertebral height loss. SOFT TISSUES: No acute abnormality of the visualized soft tissues seen. LYMPH NODES: No evidence of diffuse lymphadenopathy. TUBES, LINES AND DEVICES: Implantable cardioverter defibrillator (AICD) in place. IMPRESSION: - Bilateral pleural effusions, larger on the right. - Moderate to marked cardiomegaly. - Bilateral pulmonary consolidation, most likely representing atelectasis. - Otherwise, no evidence of significant acute process. No definite pulmonary embolism is seen, although motion artifact limits evaluation. - See above for remaining findings.
[2017-05-14] MEDS: Meropenem 1 GM in Dextrose 5% In Water 100 ML IVPB SCH (23:32)
[2017-05-15] MEDS: Albuterol-Ipratrop 3 mg / 0.5 (3 ml) UD IH SCH ×4 (01:56→20:28)
[2017-05-15] MEDS: Meropenem 1 GM in Dextrose 5% In Water 100 ML IVPB SCH ×3 (06:08→22:46)
[2017-05-15 06:52] LABS: BASO # 0.04 K/mm3 (0.0-2.0); BASO % 0.5 % (0.0-3.0); EOS # 0.1 (0.0-0.7); EOS % 0.9 % (1.5-5.0); GRAN # 5.31 (1.4-6.5); GRAN % 70.5 % (50.0-68.0); HEMATOCRIT 43.6 % (42.0-52.0); LYMPH # 1.5 (1.2-3.4); LYMPH % 19.3 % (22.0-35.0); MEAN CELL VOLUME 87.4 fl (80.0-105.0); MEAN CORPUSCULAR HEMOGLOBIN 27.9 pg (25.0-35.0); MEAN CORPUSCULAR HGB CONC 31.9 g/dl (31.0-37.0); MONO # 0.7 (0.1-0.6); MONO % 8.8 % (1.0-6.0); RED CELL DISTRIBUTION WIDTH 14.1 % (11.5-14.5); WHITE BLOOD COUNT 7.5 10^3/ul (4.5-11.0)
[2017-05-15 07:05] LABS: ALB/GLOB RATIO 1.5 (1.1-1.8); ALKALINE PHOSPHATASE 70 U/L (38-126); ALT/SGPT 32 U/L (7-56); AST/SGOT 26 U/L (17-59); BILIRUBIN,TOTAL 1.3 mg/dL (0.2-1.3); BLOOD UREA NITROGEN 22 mg/dL (7-21); CARBON DIOXIDE 27 mmol/L (21-33); CHLORIDE 99 mmol/L (98-107); GFR AFRICAN-AMERICAN > 60; GLUCOSE,RANDOM 135 mg/dL (70-110); POTASSIUM 3.8 mmol/L (3.6-5.0); SODIUM 136 mmol/L (132-148)
[2017-05-15] MEDS: Insulin Reg-MEDIUM-Coverage SC SCH ×4 (09:54→22:45)
[2017-05-15] MEDS: Pantoprazole 40 mg EC Tab PO SCH (10:00)
--- NOTE | 2017-05-15 10:41 | CON ---
DATE: 05/15/2017 CONSULTATION INDICATIONS: Stroke, positive troponins, history of coronary artery disease and CABG. HISTORY OF PRESENT ILLNESS: This is a 58-year-old man, known to Dr. Pa, who was admitted on 05/13/2017 with weakness, not feeling well, fall and apparent stroke with left-sided weakness, who is found to have a critical right internal carotid artery stenosis and is admitted to telemetry. He has had elevated troponins and a Cardiology consultation was requested. There is no chest pain or shortness of breath. There is no orthopnea, PND, palpitations, edema, fever, chills, cough, sputum production, hemoptysis, abdominal pain, nausea, vomiting, diarrhea, constipation, melena. PAST MEDICAL HISTORY: Notable for coronary artery disease with a remote coronary bypass operation. He has an ICD in place. There is a history of diabetes, hypertension, inguinal hernia repair. He is a former smoker. There is no history of congestive heart failure, angina, arrhythmia, rheumatic fever or gout. CURRENT MEDICATIONS: Include aspirin, albuterol, subcu heparin, insulin, Lasix, Lipitor, Plavix, Protonix. ALLERGIES: THERE ARE NO KNOWN MEDICATION ALLERGIES. FAMILY HISTORY: Noncontributory. SOCIAL HISTORY: He lives alone. He is a former smoker. He does not drink alcohol significantly. REVIEW OF SYSTEMS: Ten-point review of systems is unremarkable, although somewhat limited. PHYSICAL EXAMINATION: GENERAL: He is a well-developed male, lying in bed on telemetry, in no acute distress. VITAL SIGNS: Notable for sinus rhythm to sinus tachycardia 93 to 100 beats per minute. He is afebrile, blood pressure 118/81, respirations 18, O2 sat 99-100%. HEENT: Reveals no neck vein distention. I do not appreciate a carotid bruit. Mucous membranes moist. No thyroid enlargement. Conjunctivae pink. NECK: Supple. LUNGS: Lung mesa, scattered rhonchi. HEART: Examination of the heart revealed normal first and second heart sounds. Soft systolic murmur along the left sternal border. ABDOMEN: Soft. Bowel sounds present. No mass, organomegaly, tenderness, rebound or guarding. No CVA tenderness. No palpable abdominal aortic aneurysm. EXTREMITIES: Revealed no cyanosis or clubbing. There was mild peripheral edema. NEUROLOGIC: He is awake. Weakness on the left side has been recorded. PSYCHIATRIC: Normal as to mood and affect. SKIN: Warm and dry. No rash or cellulitis. LABORATORY AND IMAGING: A chest x-ray portable study on 05/13/2017 reveals no active disease. A repeat chest x-ray on 05/14/2017 reveals new bibasilar infiltrates. A CT scan of the chest on the reveals no evidence of acute pulmonary embolus, although it is a limited study. There are bilateral pleural effusions, right greater than left. Atelectasis is noted. A CT scan of the head was unremarkable. A CT scan of the head and neck revealed a severe right internal carotid artery stenosis approximately 95% and a moderate left internal carotid artery stenosis approximately 50%. A second CT scan of the head on 05/14/2017 reveals no acute findings. White count normal, platelet count normal. Hemoglobin 13.9, hematocrit 43.6. PT, INR, PTT unremarkable. D-dimer elevated at 445. Blood gases are noted. Electrolytes: BUN, creatinine unremarkable. Blood sugars are noted. Magnesium 1.8. LFTs unremarkable except for initial total bilirubin of 1.7, repeat 1.3. CK is 139 and 114. Troponins 0.28, 0.56, 0.30. BNP 15,000. IMPRESSION: Joel Delgado is a 58-year-old man with known coronary artery disease, prior myocardial infarction, coronary bypass surgery, implantable cardioverter-defibrillator, admitted with left-sided weakness, stroke and severe cerebrovascular disease with a 95% right internal carotid artery stenosis discovered. He has a history of diabetes, hypertension and is a former smoker. At this point, it appears that his primary diagnosis is acute stroke related to a severe right internal carotid artery stenosis. Elevated troponins could be related to underlying myocardial ischemia or myocardial infarction or may be related to his acute illness and transient renal dysfunction. There has been no chest pain reported. His chest x-ray shows bilateral infiltrates and effusion, possibly representing pneumonia. There is no evidence of acute pulmonary embolism. I have discussed the case with Dr. Luu. An echocardiogram is ordered. He is on aspirin and Plavix. He is having an Interventional Radiology evaluation. He is being followed by Neurology. He is on subcutaneous heparin for deep venous thrombosis prophylaxis. With regard to anticoagulation in the setting of a possible [id number] myocardial infarction, this may be too hazardous given his recent stroke, but I would defer to Dr. Parish with regard to anticoagulation in this setting. Indications of acute eyp-JW-sjecxcklu myocardial infarction are moderate and the elevated troponins may indeed be secondary to his stroke and illness with renal dysfunction. We will monitor inputs and outputs, labs. I will review the echocardiogram once it is completed. He will be considered for treatment of the severe right internal carotid artery stenosis, possibly with a vascular intervention. I will follow along with you. I will make additional recommendations based on his clinical course. Alex García MD MTDD
--- NOTE | 2017-05-15 12:17 | CP.PCM.PN ---
<Lamar Carpenter - Last Filed: 05/15/17 17:46> Subjective - Date & Time of Evaluation Date of Evaluation: 05/15/17 Time of Evaluation: 09:11 - Subjective Subjective: PGY-[address] Parish's service Patient was seen and examined at bedside. No acute distress, patient is eating breakfast. He denies any headache, dizziness or focal weakness. Objective - Vital Signs/Intake and Output Vital Signs (last 24 hours): Temp Pulse Resp BP Pulse Ox 98.1 F 93 H 100 H 118/81 99 05/15/17 06:00 05/15/17 06:00 05/15/17 06:00 05/15/17 06:00 05/14/17 06:00 Intake and Output: 05/15/17 05/15/17 06:59 18:59 Intake Total 1080 Balance 1080 - Medications Medications: Current Medications Albuterol/Ipratropium (Duoneb 3 Mg/0.5 Mg (3 Ml) Ud) 3 ml IH [id number] [facility] Last Admin: 05/15/17 08:00 Dose: 3 ml Albuterol/Ipratropium (Duoneb 3 Mg/0.5 Mg (3 Ml) Ud) 3 ml IH Q2H PRN PRN Reason: Shortness of Breath Last Admin: 05/14/17 21:32 Dose: 3 ml Aspirin (Aspirin Chewable) 81 mg PO DAILY [facility] Last Admin: 05/15/17 10:00 Dose: 81 mg Atorvastatin Calcium (Lipitor) 40 mg PO DIN [facility] Clopidogrel Bisulfate (Plavix) 75 mg PO DAILY [facility] Last Admin: 05/15/17 10:00 Dose: 75 mg Heparin Sodium (Porcine) (Heparin) 5,000 units SC Q12 [facility] PRN Reason: Protocol Last Admin: 05/15/17 10:00 Dose: 5,000 units Insulin Human Regular (Humulin R Med) 0 units SC ACHS [facility] PRN Reason: Protocol Last Admin: 05/15/17 09:54 Dose: Not Given Pantoprazole Sodium (Protonix Ec Tab) 40 mg PO ACB [facility] Last Admin: 05/15/17 10:00 Dose: 40 mg - Labs Labs: 05/15/17 06:30 05/15/17 06:30 PT 14.9 SECONDS (9.4-12.5) H 05/14/17 06:30 INR 1.35 (0.93-1.08) H 05/14/17 06:30 APTT 28.4 Seconds (25.1-36.5) 05/13/17 15:54 - Head Exam Head Exam: ATRAUMATIC, NORMAL INSPECTION, NORMOCEPHALIC - Eye Exam Eye Exam: EOMI, Normal appearance - ENT Exam ENT Exam: Mucous Membranes Moist - Respiratory Exam Respiratory Exam: Clear to Ausculation Bilateral, NORMAL BREATHING PATTERN. absent: Respiratory Distress - Cardiovascular Exam Cardiovascular Exam: REGULAR RHYTHM. absent: Tachycardia, Murmur - GI/Abdominal Exam GI & Abdominal Exam: Soft, Normal Bowel Sounds. absent: Tenderness - Extremities Exam Extremities Exam: Normal Inspection. absent: Pedal Edema, Tenderness - Neurological Exam Neurological Exam: Alert, Awake, CN II-XII Intact, Oriented x3 Neuro motor strength exam: Left Upper Extremity: 4, Right Upper Extremity: 5, Left Lower Extremity: 5, Right Lower Extremity: 5 - Skin Skin Exam: Dry, Intact, Normal Color, Warm Assessment and Plan - Assessment and Plan (Free Text) Assessment: 58 yo male for PMH of CAD, s/p CABG, AICD presented with left sided weakness due to right side infarct secondary to right sided carotid stenosis 1. CVA 2. R carotid stenosis 3. CAD with AICD - heat ct negative - patient was not candiate for tPA - CTA showed right ICA stenosis and 50% left ICA - not able to obtain MRI due to AICD - continue plavix and asa - CTA of head tomorrow - given low EF, perioperative risk is high, await cardiology recommendation for endarterectomy vs stent placement - PT/OT Case reviewed and discussed with attending, Dr. Parish <Yossi Parish - Last Filed: 05/15/17 21:59> Objective - Vital Signs/Intake and Output Vital Signs (last 24 hours): Temp Pulse Resp BP Pulse Ox 97.7 F 111 H 20 117/81 97 05/15/17 20:11 05/15/17 20:11 05/15/17 20:11 05/15/17 20:11 05/15/17 20:11 Intake and Output: 05/15/17 05/16/17 18:59 06:59 Intake Total 720 Output Total 200 Balance 520 - Medications Medications: Current Medications Albuterol/Ipratropium (Duoneb 3 Mg/0.5 Mg (3 Ml) Ud) 3 ml IH [id number] [facility] Last Admin: 05/15/17 20:28 Dose: 3 ml Albuterol/Ipratropium (Duoneb 3 Mg/0.5 Mg (3 Ml) Ud) 3 ml IH Q2H PRN PRN Reason: Shortness of Breath Last Admin: 05/14/17 21:32 Dose: 3 ml Aspirin (Aspirin Chewable) 81 mg PO DAILY [facility] Last Admin: 05/15/17 10:00 Dose: 81 mg Atorvastatin Calcium (Lipitor) 40 mg PO DIN [facility] Last Admin: 05/15/17 18:50 Dose: 40 mg Clopidogrel Bisulfate (Plavix) 75 mg PO DAILY [facility] Last Admin: 05/15/17 10:00 Dose: 75 mg Heparin Sodium (Porcine) (Heparin) 5,000 units SC Q12 [facility] PRN Reason: Protocol Last Admin: 05/15/17 10:00 Dose: 5,000 units Meropenem 1 gm/ Dextrose 100 mls @ 100 mls/hr IVPB Q8 [facility] PRN Reason: Protocol Stop: 05/15/17 22:59 Last Admin: 05/15/17 14:48 Dose: 100 mls/hr Insulin Human Regular (Humulin R Med) 0 units SC ACHS [facility] PRN Reason: Protocol Last Admin: 05/15/17 18:51 Dose: 3 units Pantoprazole Sodium (Protonix Ec Tab) 40 mg PO ACB [facility] Last Admin: 05/15/17 10:00 Dose: 40 mg - Labs Labs: 05/15/17 06:30 05/15/17 06:30 PT 14.9 SECONDS (9.4-12.5) H 05/14/17 06:30 INR 1.35 (0.93-1.08) H 05/14/17 06:30 APTT 28.4 Seconds (25.1-36.5) 05/13/17 15:54 Attending/Attestation - Attestation I have personally seen and examined this patient.: Yes I have fully participated in the care of the patient.: Yes I have reviewed all pertinent clinical information, including history, physical exam and plan: Yes
--- NOTE | 2017-05-15 13:01 | CARD ---
APPROVED REPORT EKG Measurement Heart [id number] <Conclusion> Normal sinus rhythm Possible Left atrial enlargement Right superior axis deviation Anteroseptal infarct, age undetermined ST & T wave abnormality, consider lateral ischemia Abnormal ECG
--- NOTE | 2017-05-15 14:06 | RAD ---
HISTORY: rule out pneumonia COMPARISON: 05/14/2017 FINDINGS: LUNGS: There are low lung volumes. There is persistent airspace disease in the right lower lobe. PLEURA: No change in small bilateral pleural effusions, no pneumothorax apparent. CARDIOVASCULAR: Again seen is mild cardiomegaly. Status post CABG. There is stable position of left AICD. OSSEOUS STRUCTURES: No significant abnormalities. VISUALIZED UPPER ABDOMEN: Normal. OTHER FINDINGS: None. IMPRESSION: Persistent airspace disease in the right lower lobe which may represent pneumonia. Follow-up is advised. No change in mild cardiomegaly and small pleural effusions.
--- NOTE | 2017-05-15 14:13 | CON ---
DATE: 05/15/2017 TIME: 01:30 p.m. CHIEF COMPLAINT AND HISTORY OF PRESENT ILLNESS: This is a 58-year-old gentleman who is admitted with a right hemispheric CVA. He is a known vasculopathic, status post CABG and AICD placement approximately 12 years ago. His symptoms have improved, but he still demonstrates weakness in the right upper and lower extremity. He has had [address] scans which were unremarkable. PAST MEDICAL HISTORY: Significant for diabetes, hypertension, and previous smoking. ALLERGIES: NO KNOWN DRUG ALLERGIES. MEDICATIONS: THE PATIENT IS ON PLAVIX. ASSESSMENT AND PLAN: I spoke briefly with Dr. Pa, Dr. Parish and Dr. Luu concerning this case. The patient has had a definite right hemispheric neurologic event. CTA of the neck demonstrates a severe calcified right ICA origin stenosis, approximately 90%. The left ICA disease is in the 50-70% range. The patient has a low baseline ejection fraction (approximately 20%) and there are positive troponins on his current admission. He is a significant surgical risk for endarterectomy. I am recommending right ICA stent placement with proximal and distal embolic protection. Of course, there is some risk related to the patient's recent stroke and calcified disease. I have spoken with the patient and will speak again with Dr. Pa after he sees the patient. Aspirin has been added to his regimen by Dr. Parish. Dayton Leggett MD MTDD
--- NOTE | 2017-05-15 14:24 | US ---
HISTORY: Leg pain and swelling. Evaluate for DVT PHYSICIAN(S): Dayton Leggett MD. TECHNIQUE: Duplex sonography and color-flow Doppler with graded compression were used to evaluate the deep venous systems of both lower extremities. FINDINGS: The visualized deep venous systems of both lower extremities are sonographically normal and compressible. Normal wave forms and augmentation are seen. There is no sonographic evidence for deep venous thrombosis in the visualized segments of both lower extremities. IMPRESSION: No sonographic evidence for deep venous thrombosis in the visualized segments of both lower extremities.
--- NOTE | 2017-05-15 14:32 | CP.PCM.PN ---
<Roque Pierce - Last Filed: 05/15/17 14:36> Subjective - Date & Time of Evaluation Date of Evaluation: 05/15/17 Time of Evaluation: 14:26 - Subjective Subjective: Medicine progress note for Dr. Jus Davis DO PGY - 1, Pt s/e bedside. Pt does not state any complaints, would like to leave. When asked about weakness on his left side, patient denies having any weakness. Pt further denies and cp. No further complaints. Objective - Vital Signs/Intake and Output Vital Signs (last 24 hours): Temp Pulse Resp BP Pulse Ox 97.5 F L 102 H 21 114/72 99 05/15/17 13:39 05/15/17 13:39 05/15/17 13:39 05/15/17 13:39 05/14/17 06:00 Intake and Output: 05/15/17 05/15/17 06:59 18:59 Intake Total 1080 Balance 1080 - Medications Medications: Current Medications Albuterol/Ipratropium (Duoneb 3 Mg/0.5 Mg (3 Ml) Ud) 3 ml IH [id number] [facility] Last Admin: 05/15/17 13:45 Dose: 3 ml Albuterol/Ipratropium (Duoneb 3 Mg/0.5 Mg (3 Ml) Ud) 3 ml IH Q2H PRN PRN Reason: Shortness of Breath Last Admin: 05/14/17 21:32 Dose: 3 ml Aspirin (Aspirin Chewable) 81 mg PO DAILY [facility] Last Admin: 05/15/17 10:00 Dose: 81 mg Atorvastatin Calcium (Lipitor) 40 mg PO DIN [facility] Clopidogrel Bisulfate (Plavix) 75 mg PO DAILY [facility] Last Admin: 05/15/17 10:00 Dose: 75 mg Heparin Sodium (Porcine) (Heparin) 5,000 units SC Q12 [facility] PRN Reason: Protocol Last Admin: 05/15/17 10:00 Dose: 5,000 units Meropenem 1 gm/ Dextrose 100 mls @ 100 mls/hr IVPB Q8 [facility] PRN Reason: Protocol Stop: 05/15/17 22:59 Insulin Human Regular (Humulin R Med) 0 units SC ACHS [facility] PRN Reason: Protocol Last Admin: 05/15/17 12:59 Dose: 3 units Pantoprazole Sodium (Protonix Ec Tab) 40 mg PO ACB [facility] Last Admin: 05/15/17 10:00 Dose: 40 mg - Labs Labs: 05/15/17 06:30 05/15/17 06:30 PT 14.9 SECONDS (9.4-12.5) H 05/14/17 06:30 INR 1.35 (0.93-1.08) H 05/14/17 06:30 APTT 28.4 Seconds (25.1-36.5) 05/13/17 15:54 - Additional Findings Additional findings: Phys Exam: VS as below Const'l: a&o x 4, nad Head/Neck: neck supple, no jvd, trachea midline, carotid midline, no cervical /head mass Eyes: rishi, nonicteric sclera, eom intact ENT: auditory acuity grossly intact, throat not congested, no nasal deformity Cardio: rrr, no m/r/g, no carotid bruit, nml s1, s2 Pulm: no accessory muscle use, equal nml breath sounds bilaterally, ctab Abd: s/nt/nd, nbs x 4 q, no palpable masses Derm: no rashes, no ulcers, no lesions Extr: no edema, no cyanosis, no calf tenderness, no lesions, no varicosities Neuro: +LLE 3/5 muscle strength; +slightly slurred speech; cn II-XII grossly intact, ue and le 5/5 muscle strength R; 5/5 LUE; no los ue, le bilaterally and core Assessment and Plan - Assessment and Plan (Free Text) Assessment: A/P 66 y/o M with past medical history of CAD s/p CABG and AICD, NIDDM presents with acute ischemic right sided CVA. tPA was not given as patient may have been outside 4.5 hour window. Possible NSTEMI with elevated tropes, but after discussion with cardiology, pt will not be anticoagulated at this time due to possible transformation of ischemic to hemorrhagic stroke. Acute right ischemic CVA - Head and neck CTA showed critical stenosis of the right ICA and 50% stenosis of the left ICA - Neuro consulted, recommend ASA - Neuro check q4h - Passed bedside swallow - Aspiration precaution - Physical therapy eval: Acute Rehab; Moderate severe disability, inability to walk without assist NSTEMI - No anticoagulation at this time - Continue ASA and plavix - Echo completed, awaiting read - Cardiology following, Dr. Ricky Rosas of HTN - Allow permissive HTN - Hold HTN meds - Continue to monitor BP NIDDM - HgbA1c 7.6% - ISS - Will monitor glucose closely PPX - Pepcid - SCDs <LuuQiana Mills - Last Filed: 05/15/17 17:30> Objective - Vital Signs/Intake and Output Vital Signs (last 24 hours): Temp Pulse Resp BP Pulse Ox 97.5 F L 105 H 21 114/72 99 05/15/17 13:39 05/15/17 14:00 05/15/17 13:39 05/15/17 13:39 05/14/17 06:00 Intake and Output: 05/15/17 05/15/17 06:59 18:59 Intake Total 1080 720 Output Total 200 Balance 1080 520 - Medications Medications: Current Medications Albuterol/Ipratropium (Duoneb 3 Mg/0.5 Mg (3 Ml) Ud) 3 ml IH [id number] [facility] Last Admin: 05/15/17 13:45 Dose: 3 ml Albuterol/Ipratropium (Duoneb 3 Mg/0.5 Mg (3 Ml) Ud) 3 ml IH Q2H PRN PRN Reason: Shortness of Breath Last Admin: 05/14/17 21:32 Dose: 3 ml Aspirin (Aspirin Chewable) 81 mg PO DAILY [facility] Last Admin: 05/15/17 10:00 Dose: 81 mg Atorvastatin Calcium (Lipitor) 40 mg PO DIN [facility] Clopidogrel Bisulfate (Plavix) 75 mg PO DAILY [facility] Last Admin: 05/15/17 10:00 Dose: 75 mg Heparin Sodium (Porcine) (Heparin) 5,000 units SC Q12 [facility] PRN Reason: Protocol Last Admin: 05/15/17 10:00 Dose: 5,000 units Meropenem 1 gm/ Dextrose 100 mls @ 100 mls/hr IVPB Q8 [facility] PRN Reason: Protocol Stop: 05/15/17 22:59 Last Admin: 05/15/17 14:48 Dose: 100 mls/hr Insulin Human Regular (Humulin R Med) 0 units SC ACHS [facility] PRN Reason: Protocol Last Admin: 05/15/17 12:59 Dose: 3 units Pantoprazole Sodium (Protonix Ec Tab) 40 mg PO ACB [facility] Last Admin: 05/15/17 10:00 Dose: 40 mg - Labs Labs: 05/15/17 06:30 05/15/17 06:30 PT 14.9 SECONDS (9.4-12.5) H 05/14/17 06:30 INR 1.35 (0.93-1.08) H 05/14/17 06:30 APTT 28.4 Seconds (25.1-36.5) 05/13/17 15:54 Attending/Attestation - Attestation I have personally seen and examined this patient.: Yes I have fully participated in the care of the patient.: Yes I have reviewed all pertinent clinical information, including history, physical exam and plan: Yes Notes (Text): I have seen and examined the patient at bedside. Agree with the above note with the following additions/ exceptions: Briefly this is 66 year old male with history of CAD s/p CABG, AICD, DM-2, HTN, former smoker who was brought by EMS and code stroke was called. TPA was not given as he presented outside 4.5 hours window and clinically symptoms were improving. Patient is awake, alert, oriented to time, place and person. He is sitting up on bed and is requesting to be discharged. He continues to have left sided mild weakness. CT head negative x2. MRI cannot be done as he has AICD. CT neck showed critical stenosis in R ICA and 50% in L ICA. Vascular consult appreciated. As patient has cardiomyopathy, he probably will need stent vs CEA pending cardiac clearance. Continue aspirin, plavix and lipitor. Echo result is pending. CXR showed bilateral infiltrates. Continue meropenem. ID consult pending. Troponins elevated. Patient did not have chest pain. Pegger Dobby Looms on board. Advised against anticoagulation at this time. Discussed with neurologist as well. CT revealed bilateral infiltrates probably due to aspiration. Procal ordered and meropenem started. ID consult pending. PT recommended acute rehab. Upon discharge patient will follow up with Dr King. Patient states that he follows up with Dr King regularly and does not have PMD. Dr Qiana Luu
[2017-05-16] MEDS: Albuterol-Ipratrop 3 mg / 0.5 (3 ml) UD IH SCH ×4 (02:40→19:42)
[2017-05-16 07:14] LABS: BASO # 0.03 K/mm3 (0.0-2.0); BASO % 0.4 % (0.0-3.0); EOS # 0.1 (0.0-0.7); EOS % 0.8 % (1.5-5.0); GRAN # 6.3 (1.4-6.5); GRAN % 75.8 % (50.0-68.0); HEMATOCRIT 44.1 % (42.0-52.0); LYMPH # 1.3 (1.2-3.4); LYMPH % 15.1 % (22.0-35.0); MEAN CELL VOLUME 86.3 fl (80.0-105.0); MEAN CORPUSCULAR HGB CONC 32.4 g/dl (31.0-37.0); MONO # 0.7 (0.1-0.6); MONO % 7.9 % (1.0-6.0); RED CELL DISTRIBUTION WIDTH 13.9 % (11.5-14.5); WHITE BLOOD COUNT 8.3 10^3/ul (4.5-11.0)
[2017-05-16] MEDS: Insulin Reg-MEDIUM-Coverage SC SCH ×4 (07:21→22:04)
[2017-05-16 07:26] LABS: ALB/GLOB RATIO 1.5 (1.1-1.8); ALKALINE PHOSPHATASE 75 U/L (38-126); ALT/SGPT 37 U/L (7-56); AST/SGOT 24 U/L (17-59); BILIRUBIN,TOTAL 1.5 mg/dL (0.2-1.3); BLOOD UREA NITROGEN 20 mg/dL (7-21); CALCIUM 9.2 mg/dL (8.4-10.5); CARBON DIOXIDE 23 mmol/L (21-33); CHLORIDE 96 mmol/L (98-107); GFR AFRICAN-AMERICAN > 60; GLUCOSE,RANDOM 143 mg/dL (70-110); POTASSIUM 4.1 mmol/L (3.6-5.0); SODIUM 134 mmol/L (132-148); TOTAL PROTEIN 6.4 g/dL (5.8-8.3)
[2017-05-16] MEDS ORDERED: Iohexol 350 MG/100 ML VIAL ONE (07:28)
--- NOTE | 2017-05-16 09:23 | CT ---
PROCEDURE: CT Angiography of the neck with contrast HISTORY: CVA COMPARISON: CTA from 05/13/2017 TECHNIQUE: Contiguous axial images of the neck were obtained from the level of the skull-base to the superior mediastinum in the arteriographic phase of enhancement. Coronal and sagittal reformats or also generated. IV contrast dose: 100 cc of Omni 350 Radiation Dose - DLP: 502 mGy-cm This CT exam was performed using one or more of the following dose reduction techniques: Automated exposure control, adjustment of the mA and/or kV according to patient size, and/or use of iterative reconstruction technique. The contrast opacification of the arteries is suboptimal. FINDINGS: RIGHT CAROTID ARTERIES: The previous study shows a critical stenosis of the right internal carotid with heavily calcified plaque. The finding is more difficult to appreciate on today's exam LEFT CAROTID ARTERIES: The previous study showed a moderate 50 percent stenosis of the left internal carotid. The finding is more difficult to appreciate on today's exam. VERTEBRAL ARTERIES: Right Vertebral Artery: Normal. Left Vertebral Artery: Normal. OTHER FINDINGS: None. IMPRESSION: Suboptimal arterial contrast opacification. See comments PROCEDURE: CT Angiography of the Brain. HISTORY: CVA COMPARISON: None available. TECHNIQUE: CT angiography of the intracranial arteries was performed. Coronal and sagittal maximum intensity projection reformated images were generated. This CT exam was performed using one or more of the following dose reduction techniques: Automated exposure control, adjustment of the mA and/or kV according to patient size, and/or use of iterative reconstruction technique. FINDINGS: INTERNAL CEREBRAL ARTERIES: Unremarkable. The skull base, petrous, cavernous and supraclinoid segments are bilaterally widely patent. ANTERIOR CEREBRAL ARTERIES: Unremarkable. A1 and A2 segments are widely patent. Smaller distal branches unremarkable, as visualized. MIDDLE CEREBRAL ARTERIES: There is a questionable thrombus in the left middle cerebral artery which is best seen on axial image 371 series 3. Part of this may be artifactual. There is better opacification of the vessels on the previous exam. There is also diffusely diminished flow on the right side which was not present on the previous study. There is a critical stenosis at the right internal carotid origin. Clinical correlation is suggested regarding the location of stroke symptoms POSTERIOR CIRCULATION: Basilar Artery: Unremarkable. Distal Vertebral Arteries: Unremarkable. Posterior Cerebral Arteries: Unremarkable. Posterior Inferior Cerebellar Arteries: Unremarkable. ANEURYSM/ VASCULAR MALFORMATIONS: None. OTHER FINDINGS: None. IMPRESSION: There is a questionable thrombus in the left middle cerebral artery which is best seen on axial image 371 series 3. Part of this may be artifactual. There is better opacification of the vessels on the previous exam. There is also diffusely diminished flow on the right side which was not present on the previous study. There is a critical stenosis at the right internal carotid origin. Clinical correlation is suggested regarding the location of stroke symptoms
--- NOTE | 2017-05-16 09:44 | US ---
PROCEDURE: Bilateral carotid artery duplex ultrasound HISTORY: Carotid stenosis right hemisphere CVA PHYSICIAN(S): Dayton Leggett MD. TECHNIQUE: Duplex sonography and color-flow Doppler were used to evaluate the carotid bifurcations and limited segments of the vertebral arteries bilaterally. FINDINGS: There is extensive bilateral focal heterogeneous echogenic plaque noted at the carotid bifurcations bilaterally. The origin of the right internal carotid artery is somewhat obscured by shadowing plaque. The peak systolic velocity in the proximal right internal carotid artery is 326 cm/sec. The end-diastolic velocity at this location is 75 cm/second. This corresponds to a severe 80-99 percent proximal right ICA stenosis. Mildly elevated systolic velocities are noted in the proximal right external carotid artery. There is antegrade flow in the right vertebral artery. The peak systolic velocity in the proximal left internal carotid artery is 87 cm/sec. This corresponds to a 20 to 39% proximal left ICA stenosis. Normal systolic velocities are noted in the proximal left external carotid artery. There is antegrade flow in the small left vertebral artery. IMPRESSION: 1. Severe 80-99 percent proximal right ICA stenosis 2. 20-39 percent proximal left ICA stenosis 3. Antegrade flow in both vertebral arteries
--- NOTE | 2017-05-16 09:55 | CARD ---
APPROVED REPORT EXAM: Two-dimensional and M-mode echocardiogram with Doppler and color Doppler. 2D DIMENSIONS Left Atrium (2D)4.5 (1.6-4.0cm)IVSd0.8 (0.7-1.1cm) LVDd5.7 (3.9-5.9cm)PWd1.0 (0.7-1.1cm) LVDs5.5 (2.5-4.0cm)FS (%) 4.5 % LVEF (%)10.4 (>50%) M-Mode DIMENSIONS Aortic Root2.40 (2.2-3.7cm)Aortic Cusp Exc.1.80 (1.5-2.0cm) Aortic Valve AoV Peak Bppzgycp317.0cm/Saúl Peak GR.4mmHg Mitral Valve E/A ratio0.0 TDI E/Lateral E'0.0E/Medial E'0.0 Tricuspid Valve TR Peak [id number]/sRAP [id number] Peak Gr.41mmHg [id number] LEFT VENTRICLE The Left Ventricle is mildly dilated. There is normal left ventricular wall thickness. The ejection fraction is severely impaired. There is global hypokinesis of the left ventricle. RIGHT VENTRICLE The right ventricle is normal size. The right ventricular systolic function is normal. There is a pacemaker lead in the right ventricle. ATRIA The left atrium is severely dilated. The right atrium is moderately dilated. The inferior vena cava is dilated. The interatrial septum is intact with no evidence for an atrial septal defect. AORTIC VALVE The aortic valve is moderately sclerotic. No aortic regurgitation is present. There is no aortic valvular stenosis. MITRAL VALVE The mitral valve is moderately thickened. Mitral regurgitation is moderate. TRICUSPID VALVE The tricuspid valve is normal in structure. There is moderate tricuspid regurgitation. PULMONIC VALVE The pulmonary valve is normal in structure. GREAT VESSELS The IVC is dilated. PERICARDIAL EFFUSION There is no pleural effusion. There is no pericardial effusion. <Conclusion> Biatrial enlargement. Dilated LV with severely reduced systolic function. Moderate MR. Moderate TR.
[2017-05-16] MEDS: Pantoprazole 40 mg EC Tab PO SCH (10:20)
[2017-05-16] MEDS: Meropenem 1 GM in Dextrose 5% In Water 100 ML IVPB SCH ×2 (10:20→22:03)
--- NOTE | 2017-05-16 11:05 | CP.PCM.CON ---
History of Present Illness - History of Present Illness History of Present Illness: 66 year old male with PMH of CAD S/P CABG S/P AICD placement, DM, S/P hernia repair came in to [facility] complaining of generalized weakness as well as weakness on the left side of the body. He was diagnosed with TIA on this admission as well as CHF. He is breathing treated for this and during this admission, he continued to have shortness of breath and CXR's are now showing possible lower lobe infiltrates. CT chest is showing bilateral lower lobe consolidations with bilateral pleural effusions. Infectious diseases consult is requested to further evaluate and manage. He has intermittent shortness of breath and cough without phlegm, no abdominal pain, no sore throat, no chest pain, no rhinorrhea, no diarrhea, no dysuria. As per nurse, the patient seems to exhibit odd behavior at times but currently patient is awake, alert and oriented. Review of Systems - Review of Systems All systems: reviewed and no additional remarkable complaints except (as per HPI ) Past Patient History - Infectious Disease Hx of Infectious Diseases: None - Past Social History Smoking Status: Former Smoker - CARDIAC Hx Cardiac Disorders: Yes Hx Hypertension: Yes - PULMONARY Hx Respiratory Disorders: No - NEUROLOGICAL Hx Neurological Disorder: No - HEENT Hx HEENT Problems: Yes (TONSILLECTOMY) - RENAL Hx Chronic Kidney Disease: No - ENDOCRINE/METABOLIC Hx Diabetes Mellitus Type 2: Yes - HEMATOLOGICAL/ONCOLOGICAL Hx Blood Disorders: No - INTEGUMENTARY Hx Dermatological Problems: No - MUSCULOSKELETAL/RHEUMATOLOGICAL Hx Musculoskeletal Disorders: No Hx Falls: Yes Hx Unsteady Gait: Yes - GASTROINTESTINAL Hx Gastrointestinal Disorders: Yes (HERNIORHAPPHY) - GENITOURINARY/GYNECOLOGICAL Hx Genitourinary Disorders: No - PSYCHIATRIC Hx Psychophysiologic Disorder: No Hx Substance Use: No - SURGICAL HISTORY Hx Surgeries: No (PACEMAKER LCW) Meds Allergies/Adverse Reactions: Allergies Allergy/AdvReac Type Severity Reaction Status Date / Time No Known Allergies Allergy Verified 05/13/17 20:11 - Medications Medications: Current Medications Albuterol/Ipratropium (Duoneb 3 Mg/0.5 Mg (3 Ml) Ud) 3 ml IH [id number] ANAHY Last Admin: 05/15/17 08:00 Dose: 3 ml Albuterol/Ipratropium (Duoneb 3 Mg/0.5 Mg (3 Ml) Ud) 3 ml IH Q2H PRN PRN Reason: Shortness of Breath Last Admin: 05/14/17 21:32 Dose: 3 ml Aspirin (Aspirin Chewable) 81 mg PO DAILY [facility] Last Admin: 05/15/17 10:00 Dose: 81 mg Atorvastatin Calcium (Lipitor) 40 mg PO DIN ANAHY Clopidogrel Bisulfate (Plavix) 75 mg PO DAILY [facility] Last Admin: 05/15/17 10:00 Dose: 75 mg Heparin Sodium (Porcine) (Heparin) 5,000 units SC Q12 ANAHY PRN Reason: Protocol Last Admin: 05/15/17 10:00 Dose: 5,000 units Meropenem 1 gm/ Dextrose 100 mls @ 100 mls/hr IVPB Q8 ANAHY PRN Reason: Protocol Stop: 05/15/17 22:59 Insulin Human Regular (Humulin R Med) 0 units SC ACHS ANAHY PRN Reason: Protocol Last Admin: 05/15/17 12:59 Dose: 3 units Pantoprazole Sodium (Protonix Ec Tab) 40 mg PO ACB [facility] Last Admin: 05/15/17 10:00 Dose: 40 mg Physical Exam - Constitutional Appears: Other (mild shortness of breath at rest) - Head Exam Head Exam: NORMAL INSPECTION - ENT Exam ENT Exam: Mucous Membranes Moist - Neck Exam Neck exam: Negative for: Lymphadenopathy, Meningismus - Respiratory Exam Respiratory Exam: Decreased Breath Sounds - Cardiovascular Exam Cardiovascular Exam: +S1, +S2 - GI/Abdominal Exam GI & Abdominal Exam: Soft. absent: Tenderness Results - Vital Signs Recent Vital Signs: Last Vital Signs Temp 98.1 F 05/15/17 06:00 Pulse 78 05/15/17 10:00 Resp 100 H 05/15/17 06:00 BP 118/81 05/15/17 06:00 Pulse Ox 99 05/14/17 06:00 - Labs Result Diagrams: 05/16/17 07:00 05/16/17 07:00 Labs: Laboratory Results - last 24 hr 05/14/17 05/14/17 05/14/17 16:30 17:00 17:00 WBC RBC Hgb Hct MCV MCH MCHC RDW Plt Count MPV Gran % Lymph % (Auto) Coke % (Auto) Eos % (Auto) Baso % (Auto) Gran # Lymph # Coke # Eos # Baso # D-Dimer, Quantitative 445 H pCO2 34 L pO2 167.0 H HCO3 23.6 ABG pH 7.45 ABG Total CO2 24.6 ABG O2 Saturation 100.2 H ABG O2 Content 19.6 ABG Base Excess 0.2 ABG Hemoglobin 14.1 ABG Carboxyhemoglobin 2.2 H POC ABG HHb (Measured) -0.2 L ABG Methemoglobin 0.8 ABG O2 Capacity 19.6 Hgb O2 Saturation 97.2 FiO2 36.0 Sodium Potassium Chloride Carbon Dioxide Anion Gap BUN Creatinine Est GFR ( Amer) Est GFR (Non-Af Amer) Random Glucose Calcium Total Bilirubin AST ALT Alkaline Phosphatase Lactate Dehydrogenase 555 Total Creatine Kinase 119 Troponin I 0.30 H* D NT-Pro-B Natriuret Pep 86349 H Total Protein Albumin Globulin Albumin/Globulin Ratio Procalcitonin TSH 3rd Generation 05/14/17 05/14/17 05/15/17 17:00 17:00 06:30 WBC 7.5 RBC 4.99 Hgb 13.9 L Hct 43.6 MCV 87.4 MCH 27.9 MCHC 31.9 RDW 14.1 Plt Count 190 MPV 11.0 Gran % 70.5 H Lymph % (Auto) 19.3 L Coke % (Auto) 8.8 H Eos % (Auto) 0.9 L Baso % (Auto) 0.5 Gran # 5.31 Lymph # 1.5 Coke # 0.7 H Eos # 0.1 Baso # 0.04 D-Dimer, Quantitative pCO2 pO2 HCO3 ABG pH ABG Total CO2 ABG O2 Saturation ABG O2 Content ABG Base Excess ABG Hemoglobin ABG Carboxyhemoglobin POC ABG HHb (Measured) ABG Methemoglobin ABG O2 Capacity Hgb O2 Saturation FiO2 Sodium Potassium Chloride Carbon Dioxide Anion Gap BUN Creatinine Est GFR ( Amer) Est GFR (Non-Af Amer) Random Glucose Calcium Total Bilirubin AST ALT Alkaline Phosphatase Lactate Dehydrogenase Total Creatine Kinase Troponin I NT-Pro-B Natriuret Pep Total Protein Albumin Globulin Albumin/Globulin Ratio Procalcitonin 0.12 L TSH 3rd Generation 0.81 05/15/17 06:30 WBC RBC Hgb Hct MCV MCH MCHC RDW Plt Count MPV Gran % Lymph % (Auto) Coke % (Auto) Eos % (Auto) Baso % (Auto) Gran # Lymph # Coke # Eos # Baso # D-Dimer, Quantitative pCO2 pO2 HCO3 ABG pH ABG Total CO2 ABG O2 Saturation ABG O2 Content ABG Base Excess ABG Hemoglobin ABG Carboxyhemoglobin POC ABG HHb (Measured) ABG Methemoglobin ABG O2 Capacity Hgb O2 Saturation FiO2 Sodium 136 Potassium 3.8 Chloride 99 Carbon Dioxide 27 Anion Gap 13 BUN 22 H Creatinine 1.4 Est GFR ( Amer) > 60 Est GFR (Non-Af Amer) 52 Random Glucose 135 H Calcium 9.0 Total Bilirubin 1.3 AST 26 ALT 32 Alkaline Phosphatase 70 Lactate Dehydrogenase Total Creatine Kinase Troponin I NT-Pro-B Natriuret Pep Total Protein 6.0 Albumin 3.6 Globulin 2.4 Albumin/Globulin Ratio 1.5 Procalcitonin TSH 3rd Generation Assessment & Plan - Assessment and Plan (Free Text) Plan: Assessment hypoxic respiratory failure, consider due to acute on chronic CHF, R/O HCAP, bilateral lower lobes R/O TIA CAD S/P CABG S/P AICD placement DM S/P hernia repair Plan Started patient on MErrem and will add Doxycycline pending final culture results ; reviewed CT chest and CXR's; PCT is low at 0.12 - will repeat today will monitor clinically If patient continues to exhibit odd behavior, would suggest Neurology evaluation
--- NOTE | 2017-05-16 12:39 | PN ---
DATE: 05/16/2017 SUBJECTIVE: The patient is seen sitting in bed on Telemetry. He continues to have left-sided weakness. He is anxious to go home. 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 This appears to disturb him a great deal. He is unaware of any palpitations. He has had no chest pain. CURRENT MEDICATIONS: Include aspirin, Plavix, doxycycline, DuoNeb inhaler, subcutaneous heparin, insulin coverage, Lipitor 40 mg daily, Protonix, and meropenem. OBJECTIVE: GENERAL: He is a middle-aged man, who appears somewhat anxious. VITAL SIGNS: His blood pressure is 140/80 with a pulse of 90-110 and sinus, respirations are 16. He is afebrile. HEENT: No JVD. Carotid bruits noted on the right. CHEST: Bilateral scattered rhonchi heard. HEART: PMI displaced laterally with soft tones noted. ABDOMEN: Soft, nontender with bowel sounds. EXTREMITIES: Reveal trace ankle edema. 3/5 strength is noted in the left upper and lower extremities. DIAGNOSTIC DATA: Potassium is 4.1, BUN and creatinine are 20 and 1.3. White count is 8.3, hemoglobin and hematocrit 14.3 and 44.1 with platelet count of 189,000. Echocardiogram was performed and reviewed. This reveals severe LV systolic dysfunction with moderate mitral and tricuspid regurgitation. Carotid ultrasound suggests a severe right ICA stenosis. IMPRESSION: 1. Status post left-sided cerebrovascular accident, likely secondary to severe carotid disease. 2. Severe left ventricular systolic dysfunction. 3. Coronary artery disease status post remote bypass surgery. Prior stress test showed a large fixed defect with no evidence of ischemia. 4. Status post ICD implant. 5. History of hypertension and diabetes. 6. History of remote tobacco abuse. RECOMMENDATIONS: 1. Continued risk factor control is advised. Aspirin and Plavix therapy should be continued given his recent stroke. Carotid artery revascularization with either surgery or stenting should be planned. Surgical approach may have some increased risk given his severity of LV dysfunction at the present time. An endovascular revascularization may be preferable in order to avoid general anesthesia. His mildly elevated troponin is more likely due to his acute stroke and stress of illness rather than a clear myocardial infarction. Of note, he was markedly volume overloaded when last seen in the office last week and started on diuretic therapy, and his BMP upon admission was 15,000. 2. The need for remaining in the hospital and undergoing acute inpatient physical therapy was discussed at length with him. All the above was discussed with Dr. Luu as well as Dr. Dayton Leggett. Plans will be made for carotid stenting in the near future and inpatient aggressive rehabilitation should be planned. We will be happy to follow. Moisés Pa MD MTDD
--- NOTE | 2017-05-16 13:35 | CP.PCM.PN ---
<Lamar Carpenter - Last Filed: 05/16/17 19:56> Subjective - Date & Time of Evaluation Date of Evaluation: 05/16/17 Time of Evaluation: 09:00 - Subjective Subjective: PGY-[address] Parish's service Patient was seen and examined at bedside. No acute distress, patient states that he is bored and would like to go home. He denies any headache, dizziness or new focal weakness. Continues to have left arm weakness. Objective - Vital Signs/Intake and Output Vital Signs (last 24 hours): Temp Pulse Resp BP Pulse Ox 97.6 F 112 H 19 118/78 96 05/16/17 12:00 05/16/17 12:00 05/16/17 12:00 05/16/17 12:00 05/16/17 06:00 Intake and Output: 05/16/17 05/16/17 06:59 18:59 Intake Total 420 Balance 420 - Medications Medications: Current Medications Albuterol/Ipratropium (Duoneb 3 Mg/0.5 Mg (3 Ml) Ud) 3 ml IH [id number] [facility] Last Admin: 05/16/17 08:24 Dose: Not Given Albuterol/Ipratropium (Duoneb 3 Mg/0.5 Mg (3 Ml) Ud) 3 ml IH Q2H PRN PRN Reason: Shortness of Breath Last Admin: 05/14/17 21:32 Dose: 3 ml Aspirin (Aspirin Chewable) 81 mg PO DAILY [facility] Last Admin: 05/16/17 10:20 Dose: 81 mg Atorvastatin Calcium (Lipitor) 40 mg PO DIN [facility] Last Admin: 05/15/17 18:50 Dose: 40 mg Clopidogrel Bisulfate (Plavix) 75 mg PO DAILY [facility] Last Admin: 05/16/17 10:20 Dose: 75 mg Doxycycline Hyclate (Doryx) 100 mg PO Q12 ANAHY PRN Reason: Protocol Last Admin: 05/16/17 12:52 Dose: 100 mg Heparin Sodium (Porcine) (Heparin) 5,000 units SC Q12 ANAHY PRN Reason: Protocol Last Admin: 05/16/17 10:20 Dose: 5,000 units Meropenem 1 gm/ Dextrose 100 mls @ 100 mls/hr IVPB Q12 ANAHY PRN Reason: Protocol Stop: 05/23/17 10:01 Last Admin: 05/16/17 10:20 Dose: 100 mls/hr Insulin Human Regular (Humulin R Med) 0 units SC ACHS ANAHY PRN Reason: Protocol Last Admin: 05/16/17 12:53 Dose: 7 units Pantoprazole Sodium (Protonix Ec Tab) 40 mg PO ACB [facility] Last Admin: 05/16/17 10:20 Dose: 40 mg - Labs Labs: 05/16/17 07:00 05/16/17 07:00 PT 14.9 SECONDS (9.4-12.5) H 05/14/17 06:30 INR 1.35 (0.93-1.08) H 05/14/17 06:30 APTT 28.4 Seconds (25.1-36.5) 05/13/17 15:54 - Constitutional Appears: No Acute Distress - Head Exam Head Exam: ATRAUMATIC, NORMAL INSPECTION, NORMOCEPHALIC - Eye Exam Eye Exam: EOMI, Normal appearance - ENT Exam ENT Exam: Mucous Membranes Moist - Respiratory Exam Respiratory Exam: Clear to Ausculation Bilateral, NORMAL BREATHING PATTERN. absent: Respiratory Distress - Cardiovascular Exam Cardiovascular Exam: REGULAR RHYTHM - Neurological Exam Neurological Exam: Alert, Awake, Oriented x3 Neuro motor strength exam: Left Upper Extremity: 5, Right Upper Extremity: 3, Left Lower Extremity: 5, Right Lower Extremity: 5 - Psychiatric Exam Psychiatric exam: Normal Affect, Normal Mood - Skin Skin Exam: Dry, Intact, Normal Color, Warm Assessment and Plan - Assessment and Plan (Free Text) Assessment: 58 yo male for PMH of CAD, s/p CABG, AICD presented with left sided weakness due to right MCA infarct secondary to right sided carotid stenosis 1. CVA 2. R carotid stenosis 3. CAD with AICD - heat ct negative - patient was not candidate for tPA - CTA showed right ICA stenosis and 50% left ICA - not able to obtain MRI due to AICD - continue plavix and asa - CTA of head showed left middle cerebral artery thrombus, which is consistent with focal deficits - right MCA thrombus secondary to right ICA stenosis - given low EF, perioperative risk is high, await cardiology recommendation for endarterectomy vs stent placement - PT/OT Case reviewed and discussed with attending, Dr. Parish <Yossi Parish - Last Filed: 05/17/17 10:37> Objective - Vital Signs/Intake and Output Vital Signs (last 24 hours): Temp Pulse Resp BP Pulse Ox 97.2 F L 123 H 21 132/84 97 05/17/17 03:19 05/17/17 03:19 05/17/17 03:19 05/17/17 03:19 05/17/17 03:19 Intake and Output: 05/17/17 05/17/17 06:59 18:59 Intake Total 600 Output Total 250 Balance 350 - Medications Medications: Current Medications Albuterol/Ipratropium (Duoneb 3 Mg/0.5 Mg (3 Ml) Ud) 3 ml IH [id number] [facility] Last Admin: 05/17/17 07:54 Dose: 3 ml Albuterol/Ipratropium (Duoneb 3 Mg/0.5 Mg (3 Ml) Ud) 3 ml IH Q2H PRN PRN Reason: Shortness of Breath Last Admin: 05/14/17 21:32 Dose: 3 ml Aspirin (Aspirin Chewable) 81 mg PO DAILY [facility] Last Admin: 05/17/17 09:39 Dose: 81 mg Atorvastatin Calcium (Lipitor) 40 mg PO DIN [facility] Last Admin: 05/16/17 18:18 Dose: 40 mg Clopidogrel Bisulfate (Plavix) 75 mg PO DAILY [facility] Last Admin: 05/17/17 09:39 Dose: 75 mg Doxycycline Hyclate (Doryx) 100 mg PO Q12 ANAHY PRN Reason: Protocol Last Admin: 05/17/17 09:40 Dose: 100 mg Heparin Sodium (Porcine) (Heparin) 5,000 units SC Q12 ANAHY PRN Reason: Protocol Last Admin: 05/17/17 09:40 Dose: 5,000 units Meropenem 1 gm/ Dextrose 100 mls @ 100 mls/hr IVPB Q12 ANAHY PRN Reason: Protocol Stop: 05/23/17 10:01 Last Admin: 05/17/17 09:42 Dose: 100 mls/hr Insulin Human Regular (Humulin R Med) 0 units SC ACHS ANAHY PRN Reason: Protocol Last Admin: 05/17/17 09:40 Dose: 1 units Pantoprazole Sodium (Protonix Ec Tab) 40 mg PO ACB [facility] Last Admin: 05/17/17 06:42 Dose: 40 mg - Labs Labs: 05/17/17 06:50 05/17/17 06:50 PT 14.9 SECONDS (9.4-12.5) H 05/14/17 06:30 INR 1.35 (0.93-1.08) H 05/14/17 06:30 APTT 28.4 Seconds (25.1-36.5) 05/13/17 15:54 Attending/Attestation - Attestation I have personally seen and examined this patient.: Yes I have fully participated in the care of the patient.: Yes I have reviewed all pertinent clinical information, including history, physical exam and plan: Yes
--- NOTE | 2017-05-16 14:44 | CP.PCM.PN ---
<Roque Pierce - Last Filed: 05/16/17 16:41> Subjective - Date & Time of Evaluation Date of Evaluation: 05/16/17 Time of Evaluation: 14:25 - Subjective Subjective: Medicine progress note for Dr. Jus Davis DO PGY - 1, Pt s/e bedside. Per nursing, pt seemed to be weaker today than yesterday. On my examination, pt was walking with PT, had no complaints. Pt still asking if he can leave. Objective - Vital Signs/Intake and Output Vital Signs (last 24 hours): Temp Pulse Resp BP Pulse Ox 97.6 F 112 H 19 118/78 96 05/16/17 12:00 05/16/17 12:00 05/16/17 12:00 05/16/17 12:00 05/16/17 06:00 Intake and Output: 05/16/17 05/16/17 06:59 18:59 Intake Total 420 Balance 420 - Medications Medications: Current Medications Albuterol/Ipratropium (Duoneb 3 Mg/0.5 Mg (3 Ml) Ud) 3 ml IH [id number] [facility] Last Admin: 05/16/17 13:53 Dose: 3 ml Albuterol/Ipratropium (Duoneb 3 Mg/0.5 Mg (3 Ml) Ud) 3 ml IH Q2H PRN PRN Reason: Shortness of Breath Last Admin: 05/14/17 21:32 Dose: 3 ml Aspirin (Aspirin Chewable) 81 mg PO DAILY [facility] Last Admin: 05/16/17 10:20 Dose: 81 mg Atorvastatin Calcium (Lipitor) 40 mg PO DIN [facility] Last Admin: 05/15/17 18:50 Dose: 40 mg Clopidogrel Bisulfate (Plavix) 75 mg PO DAILY [facility] Last Admin: 05/16/17 10:20 Dose: 75 mg Doxycycline Hyclate (Doryx) 100 mg PO Q12 ANAHY PRN Reason: Protocol Last Admin: 05/16/17 12:52 Dose: 100 mg Heparin Sodium (Porcine) (Heparin) 5,000 units SC Q12 ANAHY PRN Reason: Protocol Last Admin: 05/16/17 10:20 Dose: 5,000 units Meropenem 1 gm/ Dextrose 100 mls @ 100 mls/hr IVPB Q12 ANAHY PRN Reason: Protocol Stop: 05/23/17 10:01 Last Admin: 05/16/17 10:20 Dose: 100 mls/hr Insulin Human Regular (Humulin R Med) 0 units SC ACHS ANAHY PRN Reason: Protocol Last Admin: 05/16/17 12:53 Dose: 7 units Pantoprazole Sodium (Protonix Ec Tab) 40 mg PO ACB ANAHY Last Admin: 05/16/17 10:20 Dose: 40 mg - Labs Labs: 05/16/17 07:00 05/16/17 07:00 PT 14.9 SECONDS (9.4-12.5) H 05/14/17 06:30 INR 1.35 (0.93-1.08) H 05/14/17 06:30 APTT 28.4 Seconds (25.1-36.5) 05/13/17 15:54 - Additional Findings Additional findings: Phys Exam: VS as below Const'l: a&o x 4, nad Head/Neck: neck supple, no jvd, trachea midline, carotid midline, no cervical /head mass Eyes: rishi, nonicteric sclera, eom intact ENT: auditory acuity grossly intact, throat not congested, no nasal deformity Cardio: rrr, no m/r/g, no carotid bruit, nml s1, s2 Pulm: no accessory muscle use, equal nml breath sounds bilaterally, ctab Abd: s/nt/nd, nbs x 4 q, no palpable masses Derm: no rashes, no ulcers, no lesions Extr: no edema, no cyanosis, no calf tenderness, no lesions, no varicosities Neuro: +LLE 3/5 muscle strength; +slightly slurred speech; cn II-XII grossly intact, ue and le 5/5 muscle strength R; 5/5 LUE; no los ue, le Assessment and Plan - Assessment and Plan (Free Text) Assessment: A/P 66 y/o M with past medical history of CAD s/p CABG and AICD, NIDDM presents with acute ischemic right sided CVA. tPA was not given as patient may have been outside 4.5 hour window. Possible NSTEMI with elevated tropes, but after discussion with cardiology, pt will not be anticoagulated at this time due to possible transformation of ischemic to hemorrhagic stroke. Acute right ischemic CVA - Head and neck CTA showed critical stenosis of the right ICA and 50% stenosis of the left ICA - H/N CTA Rpt: Thrombus in L MCA; Critical stenosis at R ICA origin. - Carotid U/s: Severe 80-99% proximal R ICA stenosis; 20-39 % Proximal L ICA stenosis; Antegrade flow in both vertebral arteries - Neuro consulted, recommend ASA - Neuro check q4h, Aspiration precaution - Physical therapy eval: Acute Rehab; Moderate severe disability, inability to walk without assist ELLIOT likely 2/2 Dehydration - FeNa is .8%, indicating a prerenal etiology. Pt's bp is not elevated, so it does not seem like an DENISHA picture. BUN is trending down, was elevated on admission, so seems more likely 2/2 dehydration. NSTEMI - No anticoagulation at this time - Continue ASA and plavix - Echo completed, awaiting read - Cardiology following, Dr. García and Dr. Erickson * Last stress test earlier this year was negative * Unlikely that this is an NSTEMI - more likely trope elevation 2/2 renal disease or stroke * Pt was fluid overloaded in the office last week Recommendations: * Inpatient aggressive rehab * Safer for patient to get stent than endarterectomy Hx of HTN - Allow permissive HTN - Hold HTN meds - Continue to monitor BP NIDDM - HgbA1c 7.6% - ISS - Will monitor glucose closely PPX - Pepcid - SCDs <Qiana Luu - Last Filed: 05/17/17 14:46> Objective - Vital Signs/Intake and Output Vital Signs (last 24 hours): Temp Pulse Resp BP Pulse Ox 97.2 F L 110 H 20 122/82 97 05/17/17 12:00 05/17/17 12:00 05/17/17 12:00 05/17/17 12:00 05/17/17 03:19 Intake and Output: 05/17/17 05/17/17 06:59 18:59 Intake Total 600 Output Total 250 Balance 350 - Medications Medications: Current Medications Albuterol/Ipratropium (Duoneb 3 Mg/0.5 Mg (3 Ml) Ud) 3 ml IH [id number] [facility] Last Admin: 05/17/17 13:22 Dose: 3 ml Albuterol/Ipratropium (Duoneb 3 Mg/0.5 Mg (3 Ml) Ud) 3 ml IH Q2H PRN PRN Reason: Shortness of Breath Last Admin: 05/14/17 21:32 Dose: 3 ml Aspirin (Aspirin Chewable) 81 mg PO DAILY [facility] Last Admin: 05/17/17 09:39 Dose: 81 mg Atorvastatin Calcium (Lipitor) 40 mg PO DIN [facility] Last Admin: 05/16/17 18:18 Dose: 40 mg Clopidogrel Bisulfate (Plavix) 75 mg PO DAILY [facility] Last Admin: 05/17/17 09:39 Dose: 75 mg Doxycycline Hyclate (Doryx) 100 mg PO Q12 ANAHY PRN Reason: Protocol Last Admin: 05/17/17 09:40 Dose: 100 mg Heparin Sodium (Porcine) (Heparin) 5,000 units SC Q12 ANAHY PRN Reason: Protocol Last Admin: 05/17/17 09:40 Dose: 5,000 units Meropenem 1 gm/ Dextrose 100 mls @ 100 mls/hr IVPB Q12 ANAHY PRN Reason: Protocol Stop: 05/23/17 10:01 Last Admin: 05/17/17 09:42 Dose: 100 mls/hr Insulin Human Regular (Humulin R Med) 0 units SC ACHS ANAHY PRN Reason: Protocol Last Admin: 05/17/17 12:40 Dose: 3 units Pantoprazole Sodium (Protonix Ec Tab) 40 mg PO ACB [facility] Last Admin: 05/17/17 06:42 Dose: 40 mg - Labs Labs: 05/17/17 06:50 05/17/17 06:50 PT 14.9 SECONDS (9.4-12.5) H 05/14/17 06:30 INR 1.35 (0.93-1.08) H 05/14/17 06:30 APTT 28.4 Seconds (25.1-36.5) 05/13/17 15:54 Attending/Attestation - Attestation I have personally seen and examined this patient.: Yes I have fully participated in the care of the patient.: Yes I have reviewed all pertinent clinical information, including history, physical exam and plan: Yes Notes (Text): I have seen and examined the patient at bedside. Agree with the above note with the following additions/ exceptions: Briefly this is 66 year old male with history of CAD s/p CABG, AICD, DM-2, HTN, former smoker who was brought by EMS and code stroke was called. TPA was not given as he presented outside 4.5 hours window and clinically symptoms were improving. Patient is awake, alert, oriented to time, place and person. He is sitting up on bed and is requesting to be discharged. He continues to have left sided mild weakness. CT head negative x2. MRI cannot be done as he has AICD. CT neck showed critical stenosis in R ICA and 50% in L ICA. Vascular consult appreciated. As patient has cardiomyopathy, he probably will need stent vs CEA pending cardiac clearance. Continue aspirin, plavix and lipitor. Echo result is pending. CXR showed bilateral infiltrates. Continue meropenem and doxy for pneumonia. Troponins elevated. Patient did not have chest pain. Clinical Psychology Professor on board. Advised against anticoagulation at this time due to risk of hemorrhagic transformation in acute stroke. As per eyeglass cutter, patient had stress test couple of months ago which was normal. Discussed with neurologist as well. PT recommended acute rehab. Upon discharge patient will follow up with Dr King. Patient states that he follows up with Dr King regularly and does not have PMD. Dr Qiana Luu
[2017-05-17] MEDS: Albuterol-Ipratrop 3 mg / 0.5 (3 ml) UD IH SCH ×4 (01:20→19:36)
[2017-05-17] MEDS: Pantoprazole 40 mg EC Tab PO SCH (06:42)
[2017-05-17 07:10] LABS: BASO # 0.04 K/mm3 (0.0-2.0); BASO % 0.5 % (0.0-3.0); EOS # 0.1 (0.0-0.7); EOS % 0.7 % (1.5-5.0); GRAN # 5.41 (1.4-6.5); GRAN % 72.9 % (50.0-68.0); LYMPH # 1.2 (1.2-3.4); LYMPH % 15.9 % (22.0-35.0); MEAN CELL VOLUME 85.7 fl (80.0-105.0); MEAN CORPUSCULAR HEMOGLOBIN 27.7 pg (25.0-35.0); MEAN CORPUSCULAR HGB CONC 32.3 g/dl (31.0-37.0); MEAN PLATELET VOLUME 11.2 fl (7.0-11.0); MONO # 0.7 (0.1-0.6); WHITE BLOOD COUNT 7.4 10^3/ul (4.5-11.0)
[2017-05-17 07:26] LABS: ALB/GLOB RATIO 1.5 (1.1-1.8); ALKALINE PHOSPHATASE 71 U/L (38-126); ALT/SGPT 31 U/L (7-56); AST/SGOT 28 U/L (17-59); BILIRUBIN,TOTAL 1.9 mg/dL (0.2-1.3); BLOOD UREA NITROGEN 19 mg/dL (7-21); CALCIUM 9.3 mg/dL (8.4-10.5); CARBON DIOXIDE 24 mmol/L (21-33); CHLORIDE 96 mmol/L (98-107); GFR AFRICAN-AMERICAN > 60; GLUCOSE,RANDOM 190 mg/dL (70-110); POTASSIUM 4.6 mmol/L (3.6-5.0); SODIUM 131 mmol/L (132-148); TOTAL PROTEIN 6.5 g/dL (5.8-8.3)
[2017-05-17] MEDS: Insulin Reg-MEDIUM-Coverage SC SCH ×4 (09:40→22:01)
[2017-05-17] MEDS: Meropenem 1 GM in Dextrose 5% In Water 100 ML IVPB SCH ×2 (09:42→20:56)
--- NOTE | 2017-05-17 11:15 | CP.PCM.PN ---
Subjective - Date & Time of Evaluation Date of Evaluation: 05/17/17 Time of Evaluation: 10:35 - Subjective Subjective: No fevers, not in distress. Objective - Vital Signs/Intake and Output Vital Signs (last 24 hours): Temp Pulse Resp BP Pulse Ox 97.2 F L 123 H 21 132/84 97 05/17/17 03:19 05/17/17 03:19 05/17/17 03:19 05/17/17 03:19 05/17/17 03:19 Intake and Output: 05/17/17 05/17/17 06:59 18:59 Intake Total 600 Output Total 250 Balance 350 - Medications Medications: Current Medications Albuterol/Ipratropium (Duoneb 3 Mg/0.5 Mg (3 Ml) Ud) 3 ml IH [id number] [facility] Last Admin: 05/17/17 07:54 Dose: 3 ml Albuterol/Ipratropium (Duoneb 3 Mg/0.5 Mg (3 Ml) Ud) 3 ml IH Q2H PRN PRN Reason: Shortness of Breath Last Admin: 05/14/17 21:32 Dose: 3 ml Aspirin (Aspirin Chewable) 81 mg PO DAILY [facility] Last Admin: 05/16/17 10:20 Dose: 81 mg Atorvastatin Calcium (Lipitor) 40 mg PO DIN [facility] Last Admin: 05/16/17 18:18 Dose: 40 mg Clopidogrel Bisulfate (Plavix) 75 mg PO DAILY [facility] Last Admin: 05/16/17 10:20 Dose: 75 mg Doxycycline Hyclate (Doryx) 100 mg PO Q12 ANAHY PRN Reason: Protocol Last Admin: 05/16/17 22:04 Dose: 100 mg Heparin Sodium (Porcine) (Heparin) 5,000 units SC Q12 ANAHY PRN Reason: Protocol Last Admin: 05/16/17 22:03 Dose: 5,000 units Meropenem 1 gm/ Dextrose 100 mls @ 100 mls/hr IVPB Q12 ANAHY PRN Reason: Protocol Stop: 05/23/17 10:01 Last Admin: 05/16/17 22:03 Dose: 100 mls/hr Insulin Human Regular (Humulin R Med) 0 units SC ACHS ANAHY PRN Reason: Protocol Last Admin: 05/16/17 22:04 Dose: Not Given Pantoprazole Sodium (Protonix Ec Tab) 40 mg PO ACB [facility] Last Admin: 05/17/17 06:42 Dose: 40 mg - Labs Labs: 05/17/17 06:50 05/17/17 06:50 PT 14.9 SECONDS (9.4-12.5) H 05/14/17 06:30 INR 1.35 (0.93-1.08) H 05/14/17 06:30 APTT 28.4 Seconds (25.1-36.5) 05/13/17 15:54 - Constitutional Appears: Chronically Ill - Head Exam Head Exam: NORMAL INSPECTION - Respiratory Exam Respiratory Exam: Decreased Breath Sounds - Cardiovascular Exam Cardiovascular Exam: +S1, +S2 - GI/Abdominal Exam GI & Abdominal Exam: Soft. absent: Tenderness Assessment and Plan - Assessment and Plan (Free Text) Plan: Assessment hypoxic respiratory failure, consider due to acute on chronic CHF, R/O HCAP, bilateral lower lobes R/O TIA CAD S/P CABG S/P AICD placement DM S/P hernia repair Plan continue Merrem and Doxycycline (day 2); blood cultures are negative; reviewed CT chest and CXR's; PCT is low at 0.12 will continue to monitor clinically
--- NOTE | 2017-05-17 13:25 | CP.PCM.PN ---
<Roque Pierce - Last Filed: 05/17/17 13:21> Subjective - Date & Time of Evaluation Date of Evaluation: 05/17/17 Time of Evaluation: 13:21 - Subjective Subjective: Medicine progress note for Dr. Jus Davis DO PGY - 1, Pt s/e bedside. Pt states that his O2 is causing his throat to get dry. Pt denies any cp, sob, or any other complaints. Pt's options in terms of getting a stent on this visit for his severe carotid stenosis were discussed. Patient states that he would rather get aggressive rehab first and schedule the procedure as an outpatient. Risks and benefits were d/w the patient. Objective - Vital Signs/Intake and Output Vital Signs (last 24 hours): Temp Pulse Resp BP Pulse Ox 97.2 F L 110 H 20 122/82 97 05/17/17 12:00 05/17/17 12:00 05/17/17 12:00 05/17/17 12:00 05/17/17 03:19 Intake and Output: 05/17/17 05/17/17 06:59 18:59 Intake Total 600 Output Total 250 Balance 350 - Medications Medications: Current Medications Albuterol/Ipratropium (Duoneb 3 Mg/0.5 Mg (3 Ml) Ud) 3 ml IH [id number] [facility] Last Admin: 05/17/17 07:54 Dose: 3 ml Albuterol/Ipratropium (Duoneb 3 Mg/0.5 Mg (3 Ml) Ud) 3 ml IH Q2H PRN PRN Reason: Shortness of Breath Last Admin: 05/14/17 21:32 Dose: 3 ml Aspirin (Aspirin Chewable) 81 mg PO DAILY [facility] Last Admin: 05/17/17 09:39 Dose: 81 mg Atorvastatin Calcium (Lipitor) 40 mg PO DIN [facility] Last Admin: 05/16/17 18:18 Dose: 40 mg Clopidogrel Bisulfate (Plavix) 75 mg PO DAILY [facility] Last Admin: 05/17/17 09:39 Dose: 75 mg Doxycycline Hyclate (Doryx) 100 mg PO Q12 ANAHY PRN Reason: Protocol Last Admin: 05/17/17 09:40 Dose: 100 mg Heparin Sodium (Porcine) (Heparin) 5,000 units SC Q12 ANAHY PRN Reason: Protocol Last Admin: 05/17/17 09:40 Dose: 5,000 units Meropenem 1 gm/ Dextrose 100 mls @ 100 mls/hr IVPB Q12 ANAHY PRN Reason: Protocol Stop: 05/23/17 10:01 Last Admin: 05/17/17 09:42 Dose: 100 mls/hr Insulin Human Regular (Humulin R Med) 0 units SC ACHS ANAHY PRN Reason: Protocol Last Admin: 05/17/17 12:40 Dose: 3 units Pantoprazole Sodium (Protonix Ec Tab) 40 mg PO ACB [facility] Last Admin: 05/17/17 06:42 Dose: 40 mg - Labs Labs: 05/17/17 06:50 05/17/17 06:50 PT 14.9 SECONDS (9.4-12.5) H 05/14/17 06:30 INR 1.35 (0.93-1.08) H 05/14/17 06:30 APTT 28.4 Seconds (25.1-36.5) 05/13/17 15:54 - Additional Findings Additional findings: Phys Exam: VS as below Const'l: a&o x 4, nad Head/Neck: neck supple, no jvd, trachea midline, carotid midline, no cervical /head mass Eyes: rishi, nonicteric sclera, eom intact ENT: auditory acuity grossly intact, throat not congested, no nasal deformity Cardio: rrr, no m/r/g, no carotid bruit, nml s1, s2 Pulm: no accessory muscle use, equal nml breath sounds bilaterally, ctab Abd: s/nt/nd, nbs x 4 q, no palpable masses Derm: no rashes, no ulcers, no lesions Extr: no edema, no cyanosis, no calf tenderness, no lesions, no varicosities Neuro: +LLE 3/5 muscle strength - now 4/5; +slightly slurred speech-much improved; cn II-XII grossly intact, ue and le 5/5 muscle strength R; 5/5 LUE; no los ue, le Assessment and Plan - Assessment and Plan (Free Text) Assessment: A/P 66 y/o M with past medical history of CAD s/p CABG and AICD, NIDDM presents with acute ischemic right sided CVA. tPA was not given as patient may have been outside 4.5 hour window. Possible NSTEMI with elevated tropes, but after discussion with cardiology, pt will not be anticoagulated at this time due to possible transformation of ischemic to hemorrhagic stroke. Acute right ischemic CVA - Head and neck CTA showed critical stenosis of the right ICA and 50% stenosis of the left ICA - H/N CTA Rpt: Thrombus in L MCA; Critical stenosis at R ICA origin. - Carotid U/s: Severe 80-99% proximal R ICA stenosis; 20-39 % Proximal L ICA stenosis; Antegrade flow in both vertebral arteries - Neuro consulted, recommend ASA - Neuro check q4h, Aspiration precaution - Physical therapy eval: Acute Rehab; Moderate severe disability, inability to walk without assist ELLIOT likely 2/2 Dehydration - FeNa is .8%, indicating a prerenal etiology. Pt's bp is not elevated, so it does not seem like an DENISHA picture. BUN is trending down, was elevated on admission, so seems more likely 2/2 dehydration. NSTEMI - No anticoagulation at this time - Continue ASA and plavix - Echo completed, awaiting read - Cardiology following, Dr. García and Dr. Erickson * Last stress test earlier this year was negative * Unlikely that this is an NSTEMI - more likely trope elevation 2/2 renal disease or stroke * Pt was fluid overloaded in the office last week Recommendations: * Inpatient aggressive rehab * Safer for patient to get stent than endarterectomy Hx of HTN - Allow permissive HTN - Hold HTN meds - Continue to monitor BP NIDDM - HgbA1c 7.6% - ISS - Will monitor glucose closely PPX - Pepcid - SCDs Dispo: Pt is getting agitated and needs 1:1 isolation. As such, he cannot be discharged to acute rehab at this time. Once he is less agitated and is able to be off of 1:1, he is medically cleared for acute rehab <Qiana Luu - Last Filed: 05/17/17 15:15> Objective - Vital Signs/Intake and Output Vital Signs (last 24 hours): Temp Pulse Resp BP Pulse Ox 97.2 F L 110 H 20 122/82 97 05/17/17 12:00 05/17/17 12:00 05/17/17 12:00 05/17/17 12:00 05/17/17 03:19 Intake and Output: 05/17/17 05/17/17 06:59 18:59 Intake Total 600 Output Total 250 Balance 350 - Medications Medications: Current Medications Albuterol/Ipratropium (Duoneb 3 Mg/0.5 Mg (3 Ml) Ud) 3 ml IH [id number] [facility] Last Admin: 05/17/17 13:22 Dose: 3 ml Albuterol/Ipratropium (Duoneb 3 Mg/0.5 Mg (3 Ml) Ud) 3 ml IH Q2H PRN PRN Reason: Shortness of Breath Last Admin: 05/14/17 21:32 Dose: 3 ml Aspirin (Aspirin Chewable) 81 mg PO DAILY [facility] Last Admin: 05/17/17 09:39 Dose: 81 mg Atorvastatin Calcium (Lipitor) 40 mg PO DIN [facility] Last Admin: 05/16/17 18:18 Dose: 40 mg Clopidogrel Bisulfate (Plavix) 75 mg PO DAILY [facility] Last Admin: 05/17/17 09:39 Dose: 75 mg Doxycycline Hyclate (Doryx) 100 mg PO Q12 ANAHY PRN Reason: Protocol Last Admin: 05/17/17 09:40 Dose: 100 mg Heparin Sodium (Porcine) (Heparin) 5,000 units SC Q12 ANAHY PRN Reason: Protocol Last Admin: 05/17/17 09:40 Dose: 5,000 units Meropenem 1 gm/ Dextrose 100 mls @ 100 mls/hr IVPB Q12 [facility] PRN Reason: Protocol Stop: 05/23/17 10:01 Last Admin: 05/17/17 09:42 Dose: 100 mls/hr Insulin Human Regular (Humulin R Med) 0 units SC ACHS [facility] PRN Reason: Protocol Last Admin: 05/17/17 12:40 Dose: 3 units Pantoprazole Sodium (Protonix Ec Tab) 40 mg PO ACB [facility] Last Admin: 05/17/17 06:42 Dose: 40 mg - Labs Labs: 05/17/17 06:50 05/17/17 06:50 PT 14.9 SECONDS (9.4-12.5) H 05/14/17 06:30 INR 1.35 (0.93-1.08) H 05/14/17 06:30 APTT 28.4 Seconds (25.1-36.5) 05/13/17 15:54 Attending/Attestation - Attestation I have personally seen and examined this patient.: Yes I have fully participated in the care of the patient.: Yes I have reviewed all pertinent clinical information, including history, physical exam and plan: Yes Notes (Text): I have seen and examined the patient at bedside. Agree with the above note with the following additions/ exceptions: Briefly this is 66 year old male with history of CAD s/p CABG, AICD, DM-2, HTN , former smoker who was brought by EMS and code stroke was called. TPA was not given as he presented outside 4.5 hours window and clinically symptoms were improving. Patient is awake, alert, oriented to time, place and person. He is sitting up on bed and is requesting to be discharged. He continues to have left sided mild weakness. CT head negative x2. MRI cannot be done as he has AICD. CT neck showed critical stenosis in R ICA and 50% in L ICA.Thrombus in L MCA was visualized on repeat CT. Vascular consult appreciated. As patient's perioperative risk is high, he probably will need stent rather than CEA as per wet room supervisor. Continue aspirin, plavix and lipitor. Echo revealed biatrial enlargement, dilated LV with decreased LVEF, moderate MR and moderate TR. CXR showed bilateral infiltrates. Continue meropenem and doxy for pneumonia. Troponins elevation can be secondary to acute stroke vs stress. It is very unlikely that it can be due to [place] given no history of chest pain and normal stress test couple of months ago at cardiologists office. Advised against anticoagulation at this time due to risk of hemorrhagic transformation in acute stroke. Discussed with neurologist as well. PT recommended acute rehab. Discussed with SW and CM. Awaiting placement. Upon discharge patient will follow up with Dr King. Patient states that he follows up with Dr King regularly and does not have PMD. Dr Qiana Luu
--- NOTE | 2017-05-17 18:39 | PN ---
DATE: 05/17/2017 SUBJECTIVE: The patient is seen sitting in a chair on telemetry. He remains anxious to go home. He is reluctant to undergo carotid stenting at this time. He has been recommended inpatient acute rehabilitation as well. He has had intermittent dyspnea as well. CURRENT MEDICATIONS: Include aspirin, Plavix, doxycycline, DuoNeb inhaler, subcutaneous heparin, Lipitor 40 mg daily, Protonix, and meropenem. OBJECTIVE: GENERAL: He is a middle-aged man who appears comfortable at rest, but mildly agitated. VITAL SIGNS: His blood pressure is 132/84 with a pulse of 110 in sinus, respirations are 16. He is currently afebrile. HEENT: No JVD. CHEST: Few scattered rhonchi. HEART: PMI displaced laterally with soft tones noted. ABDOMEN: Soft, nontender with normoactive bowel sounds. EXTREMITIES: A 1+ ankle edema. DIAGNOSTIC DATA: Potassium 4.6, BUN and creatinine are 19 and 1.3, sodium is 131, glucose is 190. White count 7.4, hemoglobin and hematocrit 13.9 and 43.0 with platelet count of 207,000. IMPRESSION: 1. Status post recent cerebrovascular accident with residual left hemiparesis. 2. Known coronary artery disease status post prior bypass surgery with severe left ventricular dysfunction. 3. Status post implantable cardioverter defibrillator implant. 4. History of hypertension and diabetes. 5. Severe right internal carotid artery stenosis. RECOMMENDATIONS: Aspirin and Plavix therapy will be continued at the present time. Statin therapy will be continued as well. Daily furosemide will be added to his regimen as he has recently had decompensating congestive heart failure. Low-dose lisinopril will be resumed as well given his severe LV dysfunction and coronary artery disease. We will continue to follow him and make further recommendations as appropriate. The timing of his carotid stenting will be discussed with Dr. Leggett as well. Moisés Pa MD
[2017-05-18] MEDS: Albuterol-Ipratrop 3 mg / 0.5 (3 ml) UD IH SCH ×4 (01:06→20:10)
[2017-05-18] MEDS: Pantoprazole 40 mg EC Tab PO SCH (06:31)
[2017-05-18 07:36] LABS: BASO # 0.05 K/mm3 (0.0-2.0); BASO % 0.5 % (0.0-3.0); EOS % 0.2 % (1.5-5.0); GRAN # 7.59 (1.4-6.5); GRAN % 72.5 % (50.0-68.0); HEMATOCRIT 48.1 % (42.0-52.0); LYMPH # 1.5 (1.2-3.4); LYMPH % 14.1 % (22.0-35.0); MEAN CELL VOLUME 85.6 fl (80.0-105.0); MEAN CORPUSCULAR HEMOGLOBIN 27.9 pg (25.0-35.0); MEAN CORPUSCULAR HGB CONC 32.6 g/dl (31.0-37.0); MEAN PLATELET VOLUME 11.2 fl (7.0-11.0); MONO # 1.3 (0.1-0.6); MONO % 12.7 % (1.0-6.0); RED CELL DISTRIBUTION WIDTH 14.1 % (11.5-14.5); WHITE BLOOD COUNT 10.5 10^3/ul (4.5-11.0)
--- NOTE | 2017-05-18 08:44 | CP.PCM.PN ---
Subjective - Date & Time of Evaluation Date of Evaluation: 05/18/17 Time of Evaluation: 07:00 - Subjective Subjective: Stable on 3R. No CP or SOB. V/S noted. RSR/ST PE: Lungs: rhonchi Cor.: S1S2, sys. murmur Abd.: soft Ext.: no edema Neuro: alert I/O= 420/200 Labs: pending Echo noted: Sev LVD, Mod. MR and TR. Objective - Vital Signs/Intake and Output Vital Signs (last 24 hours): Temp Pulse Resp BP Pulse Ox 97.8 F 121 H 20 124/85 99 05/18/17 06:00 05/18/17 06:00 05/18/17 06:00 05/18/17 06:00 05/18/17 06:00 Intake and Output: 05/18/17 05/18/17 06:59 18:59 Intake Total 420 Output Total 200 Balance 220 - Medications Medications: Current Medications Albuterol/Ipratropium (Duoneb 3 Mg/0.5 Mg (3 Ml) Ud) 3 ml IH [id number] [facility] Last Admin: 05/18/17 01:06 Dose: 3 ml Albuterol/Ipratropium (Duoneb 3 Mg/0.5 Mg (3 Ml) Ud) 3 ml IH Q2H PRN PRN Reason: Shortness of Breath Last Admin: 05/14/17 21:32 Dose: 3 ml Aspirin (Aspirin Chewable) 81 mg PO DAILY [facility] Last Admin: 05/17/17 09:39 Dose: 81 mg Atorvastatin Calcium (Lipitor) 40 mg PO DIN [facility] Last Admin: 05/17/17 18:17 Dose: 40 mg Clopidogrel Bisulfate (Plavix) 75 mg PO DAILY [facility] Last Admin: 05/17/17 09:39 Dose: 75 mg Diphenhydramine HCl (Benadryl) 25 mg PO HS PRN PRN Reason: Insomnia Last Admin: 05/17/17 20:54 Dose: 25 mg Doxycycline Hyclate (Doryx) 100 mg PO Q12 ANAHY PRN Reason: Protocol Last Admin: 05/17/17 20:53 Dose: 100 mg Furosemide (Lasix) 40 mg PO DAILY [facility] Heparin Sodium (Porcine) (Heparin) 5,000 units SC Q12 ANAHY PRN Reason: Protocol Last Admin: 11/29/17 20:55 Dose: 5,000 units Meropenem 1 gm/ Dextrose 100 mls @ 100 mls/hr IVPB Q12 ANAHY PRN Reason: Protocol Stop: 05/23/17 10:01 Last Admin: 05/17/17 20:56 Dose: 100 mls/hr Insulin Human Regular (Humulin R Med) 0 units SC ACHS ANAHY PRN Reason: Protocol Last Admin: 05/17/17 22:01 Dose: Not Given Lisinopril (Zestril) 10 mg PO DAILY ANAHY Pantoprazole Sodium (Protonix Ec Tab) 40 mg PO ACB ANAHY Last Admin: 05/18/17 06:31 Dose: Not Given - Labs Labs: 05/18/17 06:45 05/17/17 06:50 PT 14.9 SECONDS (9.4-12.5) H 05/14/17 06:30 INR 1.35 (0.93-1.08) H 05/14/17 06:30 APTT 28.4 Seconds (25.1-36.5) 05/13/17 15:54 Assessment and Plan - Assessment and Plan (Free Text) Assessment: Stroke/Severe SAM stenosis, mod. SAM stenosis Pneumonia + troponins initially CAD/CABG/Sev. LVD with mod. MR and TR on echo CHF ICD Diabetes HBP IHR Former Smoker Plan: Continue current cardiac meds As per Neuro and Int. radiology As per LUIS ENRIQUE and Dr. Luu/Team PT/Rehab OOB to chair AB
[2017-05-18 09:21] LABS: ALB/GLOB RATIO 1.7 (1.1-1.8); BILIRUBIN,TOTAL 3.3 mg/dL (0.2-1.3); TOTAL PROTEIN 6.8 g/dL (5.8-8.3)
[2017-05-18] MEDS ORDERED: Sod Polystyrene Sulf 15 gm/60 ml Susp PO ONE (09:38)
[2017-05-18] MEDS: Insulin Reg-MEDIUM-Coverage SC SCH ×3 (09:42→22:00)
[2017-05-18 11:01] LABS: CALCIUM 9.6 mg/dL (8.4-10.5)
[2017-05-18 11:08] LABS: POTASSIUM 5.7 mmol/L (3.6-5.0)
[2017-05-18 13:05] LABS: ALB/GLOB RATIO 1.6 (1.1-1.8); CALCIUM 9.6 mg/dL (8.4-10.5); TOTAL PROTEIN 6.7 g/dL (5.8-8.3)
--- NOTE | 2017-05-18 13:20 | CP.PCM.PN ---
Subjective - Date & Time of Evaluation Date of Evaluation: 05/18/17 Time of Evaluation: 11:05 - Subjective Subjective: Comfortable on a chair, not in distress, afebrile, no fevers, no abdominal pain , no nausea, no vomiting, no diarrhea. Objective - Vital Signs/Intake and Output Vital Signs (last 24 hours): Temp Pulse Resp BP Pulse Ox 97.8 F 121 H 20 124/85 99 05/18/17 06:00 05/18/17 06:00 05/18/17 06:00 05/18/17 06:00 05/18/17 06:00 Intake and Output: 05/18/17 05/18/17 06:59 18:59 Intake Total 420 Output Total 200 Balance 220 - Medications Medications: Current Medications Albuterol/Ipratropium (Duoneb 3 Mg/0.5 Mg (3 Ml) Ud) 3 ml IH [id number] [facility] Last Admin: 05/18/17 08:50 Dose: 3 ml Albuterol/Ipratropium (Duoneb 3 Mg/0.5 Mg (3 Ml) Ud) 3 ml IH Q2H PRN PRN Reason: Shortness of Breath Last Admin: 05/14/17 21:32 Dose: 3 ml Aspirin (Aspirin Chewable) 81 mg PO DAILY [facility] Last Admin: 05/17/17 09:39 Dose: 81 mg Atorvastatin Calcium (Lipitor) 40 mg PO DIN [facility] Last Admin: 05/17/17 18:17 Dose: 40 mg Clopidogrel Bisulfate (Plavix) 75 mg PO DAILY [facility] Last Admin: 05/17/17 09:39 Dose: 75 mg Diphenhydramine HCl (Benadryl) 25 mg PO HS PRN PRN Reason: Insomnia Last Admin: 05/17/17 20:54 Dose: 25 mg Furosemide (Lasix) 40 mg PO DAILY [facility] Last Admin: 05/18/17 09:41 Dose: Not Given Heparin Sodium (Porcine) (Heparin) 5,000 units SC Q12 ANAHY PRN Reason: Protocol Last Admin: 05/17/17 20:55 Dose: 5,000 units Insulin Human Regular (Humulin R Med) 0 units SC ACHS [facility] PRN Reason: Protocol Last Admin: 05/18/17 09:42 Dose: Not Given Lisinopril (Zestril) 10 mg PO DAILY [facility] Pantoprazole Sodium (Protonix Ec Tab) 40 mg PO ACB ANAHY Last Admin: 05/18/17 06:31 Dose: Not Given - Labs Labs: 05/18/17 06:45 05/18/17 06:45 PT 14.9 SECONDS (9.4-12.5) H 05/14/17 06:30 INR 1.35 (0.93-1.08) H 05/14/17 06:30 APTT 28.4 Seconds (25.1-36.5) 05/13/17 15:54 - Constitutional Appears: Non-toxic - Head Exam Head Exam: NORMAL INSPECTION - ENT Exam ENT Exam: Mucous Membranes Moist - Neck Exam Neck Exam: absent: Meningismus - Respiratory Exam Respiratory Exam: Decreased Breath Sounds - Cardiovascular Exam Cardiovascular Exam: +S1, +S2 - GI/Abdominal Exam GI & Abdominal Exam: Soft. absent: Tenderness Assessment and Plan - Assessment and Plan (Free Text) Plan: Assessment hypoxic respiratory failure, consider due to acute on chronic CHF, R/O HCAP, bilateral lower lobes acute hepatitis with cholestasis, R/O drug-induced R/O TIA CAD S/P CABG S/P AICD placement DM S/P hernia repair Plan will d/c Merrem and Doxycycline and monitor blood cultures are negative; reviewed CT chest and CXR's; PCT is low at 0.12 will trend liver enzymes and bilirubin
[2017-05-18] MEDS ORDERED: Lidocaine 2% Inj (20ml) ONE (13:50)
[2017-05-18] MEDS ORDERED: Phenylephrine 10 mg/ml Inj ONE (13:51)
[2017-05-18] MEDS ORDERED: Iodixanol 320 MG/ML 100 ML BOTTLE IV ONE ×2 (13:52→17:52)
[2017-05-18] MEDS ORDERED: Iodixanol 320 MG/ML 200 ML BOTTLE IV ONE (13:52)
[2017-05-18] MEDS ORDERED: DOPamine 400mg/250ml D5W 400 MG/250 ML BAG IV ONE (13:52)
[2017-05-18] MEDS ORDERED: Nitroglycerin 50mg in D5W 50 MG/250 ML BOTTLE IV ONE (13:52)
[2017-05-18 15:29] LABS: POTASSIUM 5.4 mmol/L (3.6-5.0)
[2017-05-18] MEDS ORDERED: Midazolam 2 MG/2 ML VIAL ONE ×2 (15:59→16:54)
--- NOTE | 2017-05-18 17:05 | CP.PCM.PN ---
<Roque Pierce - Last Filed: 05/18/17 16:52> Subjective - Date & Time of Evaluation Date of Evaluation: 05/18/17 Time of Evaluation: 16:52 - Subjective Subjective: Medicine progress note for Dr. Jus Davis DO PGY - 1, Pt s/e bedside. Pt states that his O2 is causing his throat to get dry. Pt denies any cp, sob, or any other complaints. Pt's options in terms of getting a stent on this visit for his severe carotid stenosis were discussed. Patient states that he would rather get aggressive rehab first and schedule the procedure as an outpatient. Risks and benefits were d/w the patient. Objective - Vital Signs/Intake and Output Vital Signs (last 24 hours): Temp Pulse Resp BP Pulse Ox 97.8 F 114 H 20 124/85 99 05/18/17 06:00 05/18/17 11:18 05/18/17 06:00 05/18/17 06:00 05/18/17 10:55 Intake and Output: 05/18/17 05/18/17 06:59 18:59 Intake Total 420 Output Total 200 Balance 220 - Medications Medications: Current Medications Albuterol/Ipratropium (Duoneb 3 Mg/0.5 Mg (3 Ml) Ud) 3 ml IH [id number] [facility] Last Admin: 05/18/17 13:13 Dose: 3 ml Albuterol/Ipratropium (Duoneb 3 Mg/0.5 Mg (3 Ml) Ud) 3 ml IH Q2H PRN PRN Reason: Shortness of Breath Last Admin: 05/14/17 21:32 Dose: 3 ml Aspirin (Aspirin Chewable) 81 mg PO DAILY [facility] Last Admin: 05/18/17 11:18 Dose: 81 mg Atorvastatin Calcium (Lipitor) 40 mg PO DIN [facility] Last Admin: 05/17/17 18:17 Dose: 40 mg Clopidogrel Bisulfate (Plavix) 75 mg PO DAILY [facility] Last Admin: 05/18/17 11:18 Dose: 75 mg Diphenhydramine HCl (Benadryl) 25 mg PO HS PRN PRN Reason: Insomnia Last Admin: 05/17/17 20:54 Dose: 25 mg Furosemide (Lasix) 40 mg PO DAILY [facility] Last Admin: 05/18/17 09:41 Dose: Not Given Heparin Sodium (Porcine) (Heparin) 5,000 units SC Q12 ANAHY PRN Reason: Protocol Last Admin: 05/18/17 11:18 Dose: 5,000 units Insulin Human Regular (Humulin R Med) 0 units SC ACHS ANAHY PRN Reason: Protocol Last Admin: 05/18/17 12:39 Dose: 5 units Lisinopril (Zestril) 10 mg PO DAILY [facility] Last Admin: 05/18/17 11:18 Dose: 10 mg Pantoprazole Sodium (Protonix Ec Tab) 40 mg PO ACB [facility] Last Admin: 05/18/17 06:31 Dose: Not Given - Labs Labs: 05/18/17 06:45 05/18/17 11:40 PT 14.9 SECONDS (9.4-12.5) H 05/14/17 06:30 INR 1.35 (0.93-1.08) H 05/14/17 06:30 APTT 28.4 Seconds (25.1-36.5) 05/13/17 15:54 - Additional Findings Additional findings: Phys Exam: VS as below Const'l: a&o x 4, nad Head/Neck: neck supple, no jvd, trachea midline, carotid midline, no cervical /head mass Eyes: rishi, nonicteric sclera, eom intact ENT: auditory acuity grossly intact, throat not congested, no nasal deformity Cardio: rrr, no m/r/g, no carotid bruit, nml s1, s2 Pulm: no accessory muscle use, equal nml breath sounds bilaterally, ctab Abd: s/nt/nd, nbs x 4 q, no palpable masses Derm: no rashes, no ulcers, no lesions Extr: no edema, no cyanosis, no calf tenderness, no lesions, no varicosities Neuro: +LLE 3/5 muscle strength - now 4/5; +slightly slurred speech-much improved; cn II-XII grossly intact, ue and le 5/5 muscle strength R; 5/5 LUE; no los ue, le Assessment and Plan - Assessment and Plan (Free Text) Assessment: A/P 66 y/o M with past medical history of CAD s/p CABG and AICD, NIDDM presents with acute ischemic right sided CVA. tPA was not given as patient may have been outside 4.5 hour window. Possible NSTEMI with elevated tropes, but after discussion with cardiology, pt will not be anticoagulated at this time due to possible transformation of ischemic to hemorrhagic stroke. Acute right ischemic CVA - Neuro consulted, recommend ASA, Neuro check q4h, Aspiration precaution - ASA, plavix, lipitor - Physical therapy eval: Acute Rehab; Moderate severe disability, inability to walk without assist - Pt will need a stent outpatient ELLIOT likely 2/2 Dehydration - FeNa is .8%, indicating a prerenal etiology. Pt's bp is not elevated, so it does not seem like an DENISHA picture. BUN is trending down, was elevated on admission, so seems more likely 2/2 dehydration. Transaminitis, likely 2/2 Merepennem - Hold Merrem at this time. Elevated Troponins 2/2 Demand Ischemia - No anticoagulation at this time - Continue ASA and plavix - Echo completed, awaiting read - Cardiology following, Dr. García and Dr. Erickson * Last stress test earlier this year was negative * Unlikely that this is an NSTEMI - more likely trope elevation 2/2 renal disease or stroke * Pt was fluid overloaded in the office last week Recommendations: * Inpatient aggressive rehab * Safer for patient to get stent than endarterectomy Hx of HTN - Allow permissive HTN - Hold HTN meds - Continue to monitor BP NIDDM - HgbA1c 7.6% - ISS - Will monitor glucose closely PPX - Pepcid - SCDs Dispo: Pt was getting agitated and needed 1:1 isolation yesterday. As such, he cannot be discharged to acute rehab until tomorrow. As well, his transaminitis needs to be trended <Tiago Vizcarra - Last Filed: 05/19/17 18:07> Objective - Vital Signs/Intake and Output Vital Signs (last 24 hours): Temp Pulse Resp BP Pulse Ox 97.9 F 87 39 H 128/54 L 100 05/19/17 00:01 05/19/17 11:04 05/19/17 05:40 05/19/17 11:04 05/19/17 05:40 Intake and Output: 05/19/17 05/19/17 06:59 18:59 Intake Total 1180 Output Total 3600 Balance -2420 - Medications Medications: Current Medications Albuterol/Ipratropium (Duoneb 3 Mg/0.5 Mg (3 Ml) Ud) 3 ml IH [id number] [facility] Last Admin: 05/19/17 13:12 Dose: 3 ml Albuterol/Ipratropium (Duoneb 3 Mg/0.5 Mg (3 Ml) Ud) 3 ml IH Q2H PRN PRN Reason: Shortness of Breath Last Admin: 05/14/17 21:32 Dose: 3 ml Aspirin (Aspirin Chewable) 81 mg PO DAILY [facility] Last Admin: 05/19/17 11:13 Dose: 81 mg Atorvastatin Calcium (Lipitor) 40 mg PO DIN [facility] Last Admin: 05/17/17 18:17 Dose: 40 mg Clopidogrel Bisulfate (Plavix) 75 mg PO DAILY [facility] Last Admin: 05/19/17 11:03 Dose: 75 mg Diphenhydramine HCl (Benadryl) 25 mg PO HS PRN PRN Reason: Insomnia Last Admin: 05/18/17 23:58 Dose: 25 mg Furosemide (Lasix) 40 mg PO DAILY [facility] Last Admin: 05/19/17 11:02 Dose: 40 mg Heparin Sodium (Porcine) (Heparin) 5,000 units SC Q12 ANAHY PRN Reason: Protocol Last Admin: 05/19/17 11:06 Dose: 5,000 units Sodium Chloride (Sodium Chloride 0.9%) 1,000 mls @ 90 mls/hr IV .[id number] [facility] Last Admin: 05/18/17 21:19 Dose: 90 mls/hr Insulin Human Regular (Humulin R Med) 0 units SC ACHS [facility] PRN Reason: Protocol Last Admin: 05/19/17 17:16 Dose: 1 units Lisinopril (Zestril) 10 mg PO DAILY [facility] Last Admin: 05/19/17 11:04 Dose: 10 mg Pantoprazole Sodium (Protonix Ec Tab) 40 mg PO ACB [facility] Last Admin: 05/19/17 11:03 Dose: 40 mg - Labs Labs: 05/19/17 05:30 05/19/17 05:30 PT 14.9 SECONDS (9.4-12.5) H 05/14/17 06:30 INR 1.35 (0.93-1.08) H 05/14/17 06:30 APTT 28.4 Seconds (25.1-36.5) 05/13/17 15:54 Attending/Attestation - Attestation I have personally seen and examined this patient.: Yes I have fully participated in the care of the patient.: Yes I have reviewed all pertinent clinical information, including history, physical exam and plan: Yes Notes (Text): Acute right ischemic CVA - Neuro consulted, recommend ASA, Neuro check q4h, Aspiration precaution - ASA, plavix, lipitor - Physical therapy eval: Acute Rehab; Moderate severe disability, inability to walk without assist - Pt will need a stent outpatient ELLIOT likely 2/2 Dehydration - FeNa is .8%, indicating a prerenal etiology. Pt's bp is not elevated, so it does not seem like an DENISHA picture. BUN is trending down, was elevated on admission, so seems more likely 2/2 dehydration. Transaminitis, likely 2/2 Merepennem - Hold Merrem at this time. Elevated Troponins 2/2 Demand Ischemia Patient agreed for ICA stent
[2017-05-18] MEDS ORDERED: Flumazenil 0.1 mg/ml Inj (5ml) IVP ONE (17:31)
[2017-05-18 19:34] LABS: BASO # 0.02 K/mm3 (0.0-2.0); BASO % 0.3 % (0.0-3.0); EOS # 0.1 (0.0-0.7); EOS % 0.9 % (1.5-5.0); GRAN # 5.65 (1.4-6.5); GRAN % 71.4 % (50.0-68.0); HEMATOCRIT 39.3 % (42.0-52.0); LYMPH # 1.5 (1.2-3.4); LYMPH % 18.7 % (22.0-35.0); MEAN CELL VOLUME 85.8 fl (80.0-105.0); MEAN CORPUSCULAR HEMOGLOBIN 27.9 pg (25.0-35.0); MEAN CORPUSCULAR HGB CONC 32.6 g/dl (31.0-37.0); MEAN PLATELET VOLUME 10.8 fl (7.0-11.0); MONO # 0.7 (0.1-0.6); MONO % 8.7 % (1.0-6.0); RED CELL DISTRIBUTION WIDTH 14.1 % (11.5-14.5); WHITE BLOOD COUNT 7.9 10^3/ul (4.5-11.0)
[2017-05-18 20:03] LABS: BLOOD UREA NITROGEN 25 mg/dL (7-21); CALCIUM 8.1 mg/dL (8.4-10.5); CARBON DIOXIDE 22 mmol/L (21-33); CHLORIDE 101 mmol/L (98-107); GFR AFRICAN-AMERICAN > 60; GLUCOSE,RANDOM 140 mg/dL (70-110); POTASSIUM 4.2 mmol/L (3.6-5.0); SODIUM 132 mmol/L (132-148)
--- NOTE | 2017-05-18 20:08 | VASCULAR ---
PROCEDURE: 1. Right internal carotid artery angioplasty and stent placement with proximal and distal in bowel protection 2. Selective left carotid arteriogram. 3. Left vertebral arteriogram. HISTORY: Critical right ICA stenosis with recent right hemispheric CVA. Poor surgical candidate with low ejection fraction. Needs carotid stent. PHYSICIAN(S): Dayton Leggett MD. TECHNIQUE: The relative risks and indications of the procedure were explained to the patient and consent obtained. The patient was on Plavix prior to procedure. The patient was placed supine on the arteriogram table and the right groin prepped and draped in usual sterile fashion. Conscious sedation monitoring were provided throughout the procedure by a nurse. The right common femoral artery is punctured under ultrasound guidance with a micropuncture set. A support wire was placed. A 9 [place] sheath was placed at the right groin. A 5 [place] flush catheter was placed in the aortic arch and an ESTONIAN DSA arch arteriogram performed. Exchange is made for a 5 [place] day this catheter. The catheter was placed in the mid left common carotid artery. A DSA left carotid arteriogram consisting of cervical and intracranial views was obtained. Next the catheter was placed the origin left vertebral artery and a DSA left vertebral arteriogram consisting of cervical intracranial views performed. The catheter was placed in the mid right common carotid artery and a DSA right carotid arteriogram consisting of cervical and intracranial views performed. A support wire was placed in the right external carotid artery. The MOMA delivery catheter was advanced into the proximal right external carotid artery. The external carotid artery balloon was inflated followed by the common carotid artery balloon. Right ICA stenosis was carefully crossed with a bare wire with subtraction imaging. An Teague filter was placed in the cervical ICA at the level of C2. The critical right ICA origin stenosis was pre dilated with a 4 mm balloon. Next a tapered 9-7 self expanding stent was deployed at the right ICA stenosis. The stent was post dilated with 5 mm balloon. Multiple aspirations were performed through the MOMA catheter. The Teague filter was removed an additional aspirations performed. Occlusion balloons were deflated and final arteriograms obtained. The sheath was removed and hemostasis obtained with a Perclose device. FINDINGS: The images are degraded by respiratory motion. The arch arteriogram demonstrates the 3 great vessels to be widely patent without a radiographically significant stenosis. The great vessels are tortuous. It is a type two arch. An AICD is present. The left vertebral artery is patent. There appears to be a high-grade stenosis of the origin of the right vertebral artery. There is a critical focal 90 percent stenosis of the right ICA origin. The right external carotid artery is patent. Cervical segment of the right internal carotid artery is patent. The right MCA is opacified normal. The right A1 segment is not opacified. There is a critical 80 percent stenosis of the left external carotid artery origin. Mild 40 percent disease of the proximal left internal carotid artery is noted. The cervical segment of the left internal carotid artery is patent. The left M1 and A1 segments are patent. There is cross-filling of the right MANDA and MCA distribution on the left carotid injection. The left vertebral origin is tortuous. The left vertebral artery is otherwise patent. The basilar artery is normal. There is a small left P com artery. After stent placement, there is an excellent angiographic result on the right with a minimal residual stenosis. No macroscopic emboli are noted on the right. IMPRESSION: 1. Successful right ICA origin angioplasty and stent placement with proximal and distal embolic protection. 2. Mild 40 percent proximal left ICA stenosis. 3. Severe right vertebral artery origin stenosis. Left vertebral artery is patent.
--- NOTE | 2017-05-18 20:55 | US ---
EXAM: US Abdomen Complete CLINICAL HISTORY: 66 years old, male; Abnormal findings; Abnormal lab test; Elevated liver enzymes; Additional info: Transaminitis TECHNIQUE: Real-time ultrasound of the abdomen (complete) with image documentation. COMPARISON: No relevant prior studies available. FINDINGS: Liver: Increased in echogenicity but unremarkable in size measuring 14 cm in longitudinal dimension. No intrahepatic bile duct dilation. Gallbladder: No acute findings. No gallstones. Common bile duct: No stones. No dilation, measuring 4.6 mm. Pancreas: Visualization of the pancreas is limited by overlying bowel gas. Right kidney: Unremarkable in echogenicity and size measuring 9.9 x 5.3 x 5.8 cm No hydronephrosis. Left Kidney: Unremarkable in echogenicity and size measuring 9.9 x 5.8 x 5.6 cm. No hydronephrosis. Spleen: Unremarkable in echogenicity and borderline increased in size measuring 12 cm in longitudinal dimension. Trace perisplenic fluid, a nonspecific finding. Aorta: Despite prolonged interrogation, the abdominal aorta was not visualized secondary to overlying bowel gas. Inferior vena cava: Not visualized secondary to overlying bowel gas. IMPRESSION: Fatty infiltration of the liver. Borderline increased spleen size with trace perisplenic fluid, a nonspecific finding. Limited evaluation of the pancreas, secondary to overlying bowel gas. Otherwise, unremarkable sonographic evaluation of the abdomen, as detailed above.
[2017-05-18] MEDS: Sodium Chloride 0.9% 1,000 ML IV SCH (21:19)
[2017-05-18 21:53] LABS: ARTERIAL BLOOD GAS HCO3 27.9 mmol/L (21-28); ARTERIAL BLOOD GAS PH 7.43 (7.35-7.45)
[2017-05-19] MEDS: Albuterol-Ipratrop 3 mg / 0.5 (3 ml) UD IH SCH ×4 (02:03→20:28)
[2017-05-19 06:13] LABS: ARTERIAL BLOOD GAS HCO3 25.6 mmol/L (21-28); ARTERIAL BLOOD GAS O2 CAPACITY 18.3 mL/dl (16-24); ARTERIAL BLOOD GAS O2 CONTENT 18.3 ML/dl (15-23); ARTERIAL BLOOD GAS PH 7.46 (7.35-7.45); CARBOXYHEMOGLOBIN 2.1 % (0.5-1.5); HHB 0.1 % (0-5); METHEMOGLOBIN 0.8 % (0.0-3.0)
[2017-05-19 06:44] LABS: BASO # 0.03 K/mm3 (0.0-2.0); BASO % 0.3 % (0.0-3.0); EOS # 0.1 (0.0-0.7); EOS % 0.7 % (1.5-5.0); GRAN # 7.18 (1.4-6.5); GRAN % 80.3 % (50.0-68.0); HEMATOCRIT 40.5 % (42.0-52.0); LYMPH % 10.9 % (22.0-35.0); MEAN CELL VOLUME 86.9 fl (80.0-105.0); MEAN CORPUSCULAR HEMOGLOBIN 27.5 pg (25.0-35.0); MEAN CORPUSCULAR HGB CONC 31.6 g/dl (31.0-37.0); MEAN PLATELET VOLUME 11.1 fl (7.0-11.0); MONO # 0.7 (0.1-0.6); MONO % 7.8 % (1.0-6.0); RED CELL DISTRIBUTION WIDTH 14.3 % (11.5-14.5); WHITE BLOOD COUNT 8.9 10^3/ul (4.5-11.0)
[2017-05-19] MEDS: Insulin Reg-MEDIUM-Coverage SC SCH ×5 (07:30→22:42)
--- NOTE | 2017-05-19 07:32 | CON ---
DATE: 05/18/2017 HISTORY OF PRESENT ILLNESS: This is a 66-year-old gentleman with history of severe left ventricular systolic dysfunction, hypertension, hyperlipidemia, peripheral vascular disease, who presented to [facility] ER five days ago with acute right MCA stroke. The patient was on Plavix and was not a candidate for TPA and was managed conservatively. Subsequent workup revealed substantial stenosis in the right ICA, and as the patient was a high risk for CEA, he was referred to IR for carotid artery stenting. Procedure was done today. There were no complications. The patient was referred to ICU for further management and monitoring overnight. No fever, no chills, no sweats. No nausea, no vomiting, no diarrhea, no constipation. PAST MEDICAL HISTORY: Carotid artery stenosis, peripheral vascular disease, coronary artery disease, status post CABG and AICD, severe left ventricular systolic dysfunction, and diabetes mellitus type 2. HOME MEDICATIONS: Lisinopril, Plavix, metformin, glyburide, Coreg, aspirin, furosemide, Lipitor. PAST SURGICAL HISTORY: ICD placement, CABG, hernia repair. ALLERGIES: NKDA. SOCIAL HISTORY: The patient is a former smoker, he quit about 12 years ago. He denies alcohol or illicit drug abuse. He lives alone, does not drive, but otherwise takes care of himself. REVIEW OF SYSTEMS: Review of 12-organ system other than mentioned in history of present illness is negative. FAMILY HISTORY: Noncontributory. PHYSICAL EXAMINATION: VITAL SIGNS: Oxygen saturation 98% on 2 liters nasal cannula. Blood pressure 95/54, respiratory rate 20, heart rate 88. HEENT/NECK: Head and neck atraumatic. LUNGS: Clear to auscultation bilaterally. HEART: Regular rate and rhythm. S1 and S2 distant. ABDOMEN: Soft, nontender, nondistended. MUSCULOSKELETAL: Trace to 1+ bilateral pedal and ankle edema. VASCULAR: There is a dopplerable pulse on left VOCATIONAL REHABILITATION COUNSELOR, however, no pulses on left DPA and right DPA and VOCATIONAL REHABILITATION COUNSELOR. Meanwhile, both feet are cool, but not cold. There is no paresthesia and no neurological deficiency on the right foot, and there is some minor weakness in the left foot which is consistent with right MCA stroke that the patient had before. NEUROLOGIC: A 3/5 motor strength in the left upper and lower extremities, also flattening of the left nasolabial fold. Right upper and lower extremities, 5/5 motor strength. There is also decreased strength in the left trapezius muscles. Right trapezius muscle strength is 5/5. SKIN: A little cool in the both lower extremities, but senior instructor other places. PSYCH: The patient is alert and oriented x3, somewhat lethargic. LABORATORY DATA: Sodium 131, potassium 5.4, chloride 94, BUN 27, creatinine 1.5. AST 1922, ALT 1306, alkaline phosphatase 83, total bilirubin 3, down from 3.3. WBC 10.5, hemoglobin 15.7, platelet count 236. ASSESSMENT AND PLAN: This is a 66-year-old gentleman with right middle cerebral artery stroke, status post stenting of the right carotid artery as the patient is high risk for CEA. Transaminitis is a little bit concerning and might be related to congestive hepatopathy. Statins are on hold There is no documented episode of significant hypotension to attribute transaminitis to "shock liver." We will obtain gastrointestinal consult and will get hepatitis profile. Abdominal ultrasound will be ordered. We will continue to target euvolemia, euglycemia, normothermia, and oxygen saturation more than 90%. We will continue with aspirin and Plavix, deep venous thrombosis and gastrointestinal prophylaxis. Early mobilization in the morning. [place] catheter with monitoring urine output. Serial vascular and neurological exams. We will continue with pulmonary toilet, incentive spirometry, out of bed to chair. We will get ABG to make sure that the patient does not retain CO2; otherwise, he might need a BiPAP at night. ccm time 40 min Kyree Barnes MD MTDCole
[2017-05-19 08:35] LABS: ALB/GLOB RATIO 1.4 (1.1-1.8); ALKALINE PHOSPHATASE 77 U/L (38-126); ALT/SGPT 920 U/L (7-56); AST/SGOT > 750 U/L (17-59); BILIRUBIN,TOTAL 1.9 mg/dL (0.2-1.3); BLOOD UREA NITROGEN 25 mg/dL (7-21); CALCIUM 8.5 mg/dL (8.4-10.5); CARBON DIOXIDE 25 mmol/L (21-33); CHLORIDE 98 mmol/L (98-107); GFR AFRICAN-AMERICAN > 60; GLUCOSE,RANDOM 114 mg/dL (70-110); POTASSIUM 4.1 mmol/L (3.6-5.0); SODIUM 135 mmol/L (132-148); TOTAL PROTEIN 5.5 g/dL (5.8-8.3)
--- NOTE | 2017-05-19 09:56 | CP.CCUPN ---
<Malcolm Arambula - Last Filed: 05/19/17 13:26> CCU Subjective - Physician Review Subjective (Free Text): Critical Care Progress Note for Dr. Barnes Patient seen and examined at bedside this morning. No acute event overnight. Patient is s/p carotid angioplasty and stent placement POD#1. Patient states he is feeling better. He reports increased mentation. He still complains of fatigue and lethargy. He has residual Left sided weakness. He is tolerating heart healthy diet. [place] output was 3600 cc over last 24 hours. Patient asking to work with physical therapy. Denies fever/chills, chest pain, SOB, abdominal pain, nausea/vomiting, diarrhea, constipation, vertigo, numbness/tingling. CCU Objective - Vital Signs / Intake & Output Intake and Output (Last 8hrs): Intake & Output 05/18/17 05/19/17 05/19/17 22:59 06:59 14:59 Intake Total 600 1180 Output Total 250 3600 Balance 350 -2420 Weight 134 lb 1 oz Intake: IV 1080 Right Forearm 1080 Oral 600 100 Output: Urine 250 3600 Urethral ([place]) 3600 Urine, Voided 250 Other: # Bowel Movements 0 - Physical Exam Head: Positive for: Atraumatic, Normocephalic Pupils: Positive for: PERRL Extroacular Muscles: Positive for: EOMI Conjunctiva: Positive for: Normal Mouth: Positive for: Moist Mucous Membranes Neck: Positive for: Normal Range of Motion Respiratory/Chest: Positive for: Decreased Breath Sounds (in base), Other ( chest wall AICD). Negative for: Respiratory Distress, Accessory Muscle Use Cardiovascular: Positive for: Regular Rate and Rhythm, Murmurs (systolic murmur) , Normal S1, S2 Abdomen: Positive for: Normal Bowel Sounds. Negative for: Tenderness, Distention, Peritoneal Signs Back: Positive for: Normal Inspection Upper Extremity: Positive for: Normal Inspection. Negative for: Cyanosis, Edema Lower Extremity: Positive for: Temperature Abnormalties (right foot cold to touch), Neurovascularly Intact (on the left, right neuro intact but no DP/PT pulses), Capillary Refill < 2 s (on the left), Other (LLE: +Pop/DP/PT RLE: +pop/ -DP/-PT, right femoral access site clean/dry/intact no signs of pseudoaneurysm) . Negative for: Edema Neurological: Positive for: GCS=15, CN II-XII Intact, Speech Normal, Other ( residual left sided weakness, no sensory deficits) Skin: Positive for: Dry, Other (scattered skin lesions on bilateral lower extremity (not new)) Psychiatric: Positive for: Alert, Oriented x 3, Normal Insight, Normal Concentration, Normal Affect, Normal Mood - Medications Active Medications: Active Medications Generic Name Dose Route Start Last Admin Trade Name Freq PRN Reason Stop Dose Admin Albuterol/Ipratropium 3 ml 05/14/17 18:00 05/19/17 07:02 Duoneb 3 Mg/0.5 Mg (3 Ml) Ud IH 3 ml [id number] ANAHY Administration Albuterol/Ipratropium 3 ml 05/14/17 15:03 05/14/17 21:32 Duoneb 3 Mg/0.5 Mg (3 Ml) Ud IH 3 ml Q2H PRN Administration Shortness of Breath Aspirin 81 mg 05/14/17 10:00 05/18/17 11:18 Aspirin Chewable PO 81 mg DAILY ANAHY Administration Atorvastatin Calcium 40 mg 05/14/17 17:16 05/17/17 18:17 Lipitor PO 40 mg DIN ANAHY Administration Clopidogrel Bisulfate 75 mg 05/14/17 10:00 05/18/17 11:18 Plavix PO 75 mg DAILY ANAHY Administration Diphenhydramine HCl 25 mg 05/17/17 21:00 05/18/17 23:58 Benadryl PO 25 mg HS PRN Administration Insomnia Furosemide 40 mg 05/18/17 10:00 05/18/17 09:41 Lasix PO Not Given DAILY ANAHY Heparin Sodium (Porcine) 5,000 units 05/15/17 10:00 05/19/17 00:01 Heparin SC 5,000 units Q12 ANAHY Administration Protocol Sodium Chloride 1,000 mls @ 90 mls/hr 05/18/17 21:15 05/18/17 21:19 Sodium Chloride 0.9% IV 90 mls/hr .[id number] ANAHY Administration Insulin Human Regular 0 units 05/13/17 22:00 05/18/17 22:00 Humulin R Med SC Not Given ACHS ANAHY Protocol Lisinopril 10 mg 05/18/17 10:00 05/18/17 11:18 Zestril PO 10 mg DAILY ANAHY Administration Pantoprazole Sodium 40 mg 05/14/17 07:30 05/18/17 06:31 Protonix Ec Tab PO Not Given ACB ANAHY - Patient Studies Lab Studies: Microbiology Studies 05/14/17 17:15 Blood Culture - Preliminary Blood NO GROWTH AFTER 4 DAYS 05/14/17 17:45 Blood Culture - Preliminary Blood NO GROWTH AFTER 4 DAYS Lab Studies 05/19/17 05/19/17 05/19/17 Range/Units 07:47 06:09 05:30 WBC (4.5-11.0) 10^3/ul RBC (3.5-6.1) 10^6/uL Hgb (14.0-18.0) g/dL Hct (42.0-52.0) % MCV (80.0-105.0) fl MCH (25.0-35.0) pg MCHC (31.0-37.0) g/dl RDW (11.5-14.5) % Plt Count (120.0-450.0) 10^3/uL MPV (7.0-11.0) fl Gran % (50.0-68.0) % Lymph % (Auto) (22.0-35.0) % [place] % (Auto) (1.0-6.0) % Eos % (Auto) (1.5-5.0) % Baso % (Auto) (0.0-3.0) % Gran # (1.4-6.5) Lymph # (1.2-3.4) [place] # (0.1-0.6) Eos # (0.0-0.7) Baso # (0.0-2.0) K/mm3 pCO2 36 (35-45) mm/Hg pO2 162.0 H (80-100) mm/Hg HCO3 25.6 (21-28) mmol/L ABG pH 7.46 H (7.35-7.45) ABG Total CO2 26.7 (22-28) mmol.L ABG O2 Saturation 99.9 H (95-98) % ABG O2 Content 18.3 (15-23) ML/dl ABG Base Excess 2.0 (-2.0-3.0) mmol/L ABG Hemoglobin 13.2 (11.7-17.4) g/dL ABG Carboxyhemoglobin 2.1 H (0.5-1.5) % POC ABG HHb (Measured) 0.1 (0-5) % ABG Methemoglobin 0.8 (0.0-3.0) % ABG O2 Capacity 18.3 (16-24) mL/dl ABG Potassium (3.6-5.2) mmol/L Hgb O2 Saturation 97.0 (95.0-98.0) % Glucose (75-110) mg/dl Lactate (0.7-2.1) mmol/L FiO2 36.0 % Sodium 135 (132-148) mmol/L Potassium 4.1 (3.6-5.0) mmol/L Chloride 98 (98-107) mmol/L Carbon Dioxide 25 (21-33) mmol/L Anion Gap 16 (10-20) BUN 25 H (7-21) mg/dL Creatinine 1.4 (0.8-1.5) mg/dl Est GFR ( Amer) > 60 Est GFR (Non-Af Amer) 51 POC Glucose (mg/dL) 123 H (65-110) mg/dL Random Glucose 114 H (70-110) mg/dL Calcium 8.5 (8.4-10.5) mg/dL Total Bilirubin 1.9 H (0.2-1.3) mg/dL AST > 750 H D (17-59) U/L ALT 920 H (7-56) U/L Alkaline Phosphatase 77 (38-126) U/L Total Protein 5.5 L (5.8-8.3) g/dL Albumin 3.2 (3.0-4.8) g/dL Globulin 2.3 gm/dL Albumin/Globulin Ratio 1.4 (1.1-1.8) Arterial Blood Potassium (3.6-5.2) mmol/L 05/19/17 05/18/17 05/18/17 Range/Units 05:30 22:10 21:50 WBC 8.9 (4.5-11.0) 10^3/ul RBC 4.66 (3.5-6.1) 10^6/uL Hgb 12.8 L (14.0-18.0) g/dL Hct 40.5 L (42.0-52.0) % MCV 86.9 (80.0-105.0) fl MCH 27.5 (25.0-35.0) pg MCHC 31.6 (31.0-37.0) g/dl RDW 14.3 (11.5-14.5) % Plt Count 174 (120.0-450.0) 10^3/uL MPV 11.1 H (7.0-11.0) fl Gran % 80.3 H (50.0-68.0) % Lymph % (Auto) 10.9 L (22.0-35.0) % [place] % (Auto) 7.8 H (1.0-6.0) % Eos % (Auto) 0.7 L (1.5-5.0) % Baso % (Auto) 0.3 (0.0-3.0) % Gran # 7.18 H (1.4-6.5) Lymph # 1.0 L (1.2-3.4) Chester # 0.7 H (0.1-0.6) Eos # 0.1 (0.0-0.7) Baso # 0.03 (0.0-2.0) K/mm3 pCO2 42 (35-45) mm/Hg pO2 56.0 L (80-100) mm/Hg HCO3 27.9 (21-28) mmol/L ABG pH 7.43 (7.35-7.45) ABG Total CO2 29.2 H (22-28) mmol.L ABG O2 Saturation 92.8 L (95-98) % ABG O2 Content (15-23) ML/dl ABG Base Excess 3.2 H (-2.0-3.0) mmol/L ABG Hemoglobin (11.7-17.4) g/dL ABG Carboxyhemoglobin (0.5-1.5) % POC ABG HHb (Measured) (0-5) % ABG Methemoglobin (0.0-3.0) % ABG O2 Capacity (16-24) mL/dl ABG Potassium 3.6 (3.6-5.2) mmol/L Hgb O2 Saturation (95.0-98.0) % Glucose 141 H (75-110) mg/dl Lactate 1.7 (0.7-2.1) mmol/L FiO2 24.0 % Sodium 135.0 (132-148) mmol/L Potassium (3.6-5.0) mmol/L Chloride 99.0 (98-107) mmol/L Carbon Dioxide (21-33) mmol/L Anion Gap (10-20) BUN (7-21) mg/dL Creatinine (0.8-1.5) mg/dl Est GFR ( Amer) Est GFR (Non-Af Amer) POC Glucose (mg/dL) 140 H (65-110) mg/dL Random Glucose (70-110) mg/dL Calcium (8.4-10.5) mg/dL Total Bilirubin (0.2-1.3) mg/dL AST (17-59) U/L ALT (7-56) U/L Alkaline Phosphatase (38-126) U/L Total Protein (5.8-8.3) g/dL Albumin (3.0-4.8) g/dL Globulin gm/dL Albumin/Globulin Ratio (1.1-1.8) Arterial Blood Potassium 3.6 (3.6-5.2) mmol/L 05/18/17 05/18/17 05/18/17 Range/Units 19:25 19:25 11:40 WBC 7.9 D (4.5-11.0) 10^3/ul RBC 4.58 (3.5-6.1) 10^6/uL Hgb 12.8 L D (14.0-18.0) g/dL Hct 39.3 L (42.0-52.0) % MCV 85.8 (80.0-105.0) fl MCH 27.9 (25.0-35.0) pg MCHC 32.6 (31.0-37.0) g/dl RDW 14.1 (11.5-14.5) % Plt Count 179 (120.0-450.0) 10^3/uL MPV 10.8 (7.0-11.0) fl Gran % 71.4 H (50.0-68.0) % Lymph % (Auto) 18.7 L (22.0-35.0) % [place] % (Auto) 8.7 H (1.0-6.0) % Eos % (Auto) 0.9 L (1.5-5.0) % Baso % (Auto) 0.3 (0.0-3.0) % Gran # 5.65 (1.4-6.5) Lymph # 1.5 (1.2-3.4) [place] # 0.7 H (0.1-0.6) Eos # 0.1 (0.0-0.7) Baso # 0.02 (0.0-2.0) K/mm3 pCO2 (35-45) mm/Hg pO2 (80-100) mm/Hg HCO3 (21-28) mmol/L ABG pH (7.35-7.45) ABG Total CO2 (22-28) mmol.L ABG O2 Saturation (95-98) % ABG O2 Content (15-23) ML/dl ABG Base Excess (-2.0-3.0) mmol/L ABG Hemoglobin (11.7-17.4) g/dL ABG Carboxyhemoglobin (0.5-1.5) % POC ABG HHb (Measured) (0-5) % ABG Methemoglobin (0.0-3.0) % ABG O2 Capacity (16-24) mL/dl ABG Potassium (3.6-5.2) mmol/L Hgb O2 Saturation (95.0-98.0) % Glucose (75-110) mg/dl Lactate (0.7-2.1) mmol/L FiO2 % Sodium 132 131 L (132-148) mmol/L Potassium 4.2 5.4 H (3.6-5.0) mmol/L Chloride 101 94 L (98-107) mmol/L Carbon Dioxide 22 26 (21-33) mmol/L Anion Gap 13 16 (10-20) BUN 25 H 27 H (7-21) mg/dL Creatinine 1.3 1.5 (0.8-1.5) mg/dl Est GFR ( Amer) > 60 57 Est GFR (Non-Af Amer) 55 47 POC Glucose (mg/dL) (65-110) mg/dL Random Glucose 140 H 213 H (70-110) mg/dL Calcium 8.1 L 9.6 (8.4-10.5) mg/dL Total Bilirubin 3.0 H (0.2-1.3) mg/dL AST 1922 H (17-59) U/L ALT 1306 H (7-56) U/L Alkaline Phosphatase 83 (38-126) U/L Total Protein 6.7 (5.8-8.3) g/dL Albumin 4.1 (3.0-4.8) g/dL Globulin 2.6 gm/dL Albumin/Globulin Ratio 1.6 (1.1-1.8) Arterial Blood Potassium (3.6-5.2) mmol/L 05/18/17 Range/Units 06:45 WBC (4.5-11.0) 10^3/ul RBC (3.5-6.1) 10^6/uL Hgb (14.0-18.0) g/dL Hct (42.0-52.0) % MCV (80.0-105.0) fl MCH (25.0-35.0) pg MCHC (31.0-37.0) g/dl RDW (11.5-14.5) % Plt Count (120.0-450.0) 10^3/uL MPV (7.0-11.0) fl Gran % (50.0-68.0) % Lymph % (Auto) (22.0-35.0) % [place] % (Auto) (1.0-6.0) % Eos % (Auto) (1.5-5.0) % Baso % (Auto) (0.0-3.0) % Gran # (1.4-6.5) Lymph # (1.2-3.4) [place] # (0.1-0.6) Eos # (0.0-0.7) Baso # (0.0-2.0) K/mm3 pCO2 (35-45) mm/Hg pO2 (80-100) mm/Hg HCO3 (21-28) mmol/L ABG pH (7.35-7.45) ABG Total CO2 (22-28) mmol.L ABG O2 Saturation (95-98) % ABG O2 Content (15-23) ML/dl ABG Base Excess (-2.0-3.0) mmol/L ABG Hemoglobin (11.7-17.4) g/dL ABG Carboxyhemoglobin (0.5-1.5) % POC ABG HHb (Measured) (0-5) % ABG Methemoglobin (0.0-3.0) % ABG O2 Capacity (16-24) mL/dl ABG Potassium (3.6-5.2) mmol/L Hgb O2 Saturation (95.0-98.0) % Glucose (75-110) mg/dl Lactate (0.7-2.1) mmol/L FiO2 % Sodium 131 L (132-148) mmol/L Potassium 5.7 H* D (3.6-5.0) mmol/L Chloride 95 L (98-107) mmol/L Carbon Dioxide (21-33) mmol/L Anion Gap (10-20) BUN (7-21) mg/dL Creatinine (0.8-1.5) mg/dl Est GFR ( Amer) Est GFR (Non-Af Amer) POC Glucose (mg/dL) (65-110) mg/dL Random Glucose (70-110) mg/dL Calcium 9.6 (8.4-10.5) mg/dL Total Bilirubin (0.2-1.3) mg/dL AST (17-59) U/L ALT (7-56) U/L Alkaline Phosphatase 89 (38-126) U/L Total Protein (5.8-8.3) g/dL Albumin (3.0-4.8) g/dL Globulin gm/dL Albumin/Globulin Ratio (1.1-1.8) Arterial Blood Potassium (3.6-5.2) mmol/L Laboratory Results - last 24 hr 05/18/17 05/18/17 05/18/17 06:45 11:40 19:25 WBC RBC Hgb Hct MCV MCH MCHC RDW Plt Count MPV Gran % Lymph % (Auto) [place] % (Auto) Eos % (Auto) Baso % (Auto) Gran # Lymph # [place] # Eos # Baso # pCO2 pO2 HCO3 ABG pH ABG Total CO2 ABG O2 Saturation ABG O2 Content ABG Base Excess ABG Hemoglobin ABG Carboxyhemoglobin POC ABG HHb (Measured) ABG Methemoglobin ABG O2 Capacity ABG Potassium Hgb O2 Saturation Glucose Lactate FiO2 Sodium 131 L 131 L 132 Potassium 5.7 H* D 5.4 H 4.2 Chloride 95 L 94 L 101 Carbon Dioxide 26 22 Anion Gap 16 13 BUN 27 H 25 H Creatinine 1.5 1.3 Est GFR ( Amer) 57 > 60 Est GFR (Non-Af Amer) 47 55 POC Glucose (mg/dL) Random Glucose 213 H 140 H Calcium 9.6 9.6 8.1 L Total Bilirubin 3.0 H AST 1922 H ALT 1306 H Alkaline Phosphatase 89 83 Total Protein 6.7 Albumin 4.1 Globulin 2.6 Albumin/Globulin Ratio 1.6 Arterial Blood Potassium 05/18/17 05/18/17 05/18/17 19:25 21:50 22:10 WBC 7.9 D RBC 4.58 Hgb 12.8 L D Hct 39.3 L MCV 85.8 MCH 27.9 MCHC 32.6 RDW 14.1 Plt Count 179 MPV 10.8 Gran % 71.4 H Lymph % (Auto) 18.7 L [place] % (Auto) 8.7 H Eos % (Auto) 0.9 L Baso % (Auto) 0.3 Gran # 5.65 Lymph # 1.5 [place] # 0.7 H Eos # 0.1 Baso # 0.02 pCO2 42 pO2 56.0 L HCO3 27.9 ABG pH 7.43 ABG Total CO2 29.2 H ABG O2 Saturation 92.8 L ABG O2 Content ABG Base Excess 3.2 H ABG Hemoglobin ABG Carboxyhemoglobin POC ABG HHb (Measured) ABG Methemoglobin ABG O2 Capacity ABG Potassium 3.6 Hgb O2 Saturation Glucose 141 H Lactate 1.7 FiO2 24.0 Sodium 135.0 Potassium Chloride 99.0 Carbon Dioxide Anion Gap BUN Creatinine Est GFR ( Amer) Est GFR (Non-Af Amer) POC Glucose (mg/dL) 140 H Random Glucose Calcium Total Bilirubin AST ALT Alkaline Phosphatase Total Protein Albumin Globulin Albumin/Globulin Ratio Arterial Blood Potassium 3.6 05/19/17 05/19/17 05/19/17 05:30 05:30 06:09 WBC 8.9 RBC 4.66 Hgb 12.8 L Hct 40.5 L MCV 86.9 MCH 27.5 MCHC 31.6 RDW 14.3 Plt Count 174 MPV 11.1 H Gran % 80.3 H Lymph % (Auto) 10.9 L [place] % (Auto) 7.8 H Eos % (Auto) 0.7 L Baso % (Auto) 0.3 Gran # 7.18 H Lymph # 1.0 L [place] # 0.7 H Eos # 0.1 Baso # 0.03 pCO2 36 pO2 162.0 H HCO3 25.6 ABG pH 7.46 H ABG Total CO2 26.7 ABG O2 Saturation 99.9 H ABG O2 Content 18.3 ABG Base Excess 2.0 ABG Hemoglobin 13.2 ABG Carboxyhemoglobin 2.1 H POC ABG HHb (Measured) 0.1 ABG Methemoglobin 0.8 ABG O2 Capacity 18.3 ABG Potassium Hgb O2 Saturation 97.0 Glucose Lactate FiO2 36.0 Sodium 135 Potassium 4.1 Chloride 98 Carbon Dioxide 25 Anion Gap 16 BUN 25 H Creatinine 1.4 Est GFR ( Amer) > 60 Est GFR (Non-Af Amer) 51 POC Glucose (mg/dL) Random Glucose 114 H Calcium 8.5 Total Bilirubin 1.9 H AST > 750 H D ALT 920 H Alkaline Phosphatase 77 Total Protein 5.5 L Albumin 3.2 Globulin 2.3 Albumin/Globulin Ratio 1.4 Arterial Blood Potassium 05/19/17 07:47 WBC RBC Hgb Hct MCV MCH MCHC RDW Plt Count MPV Gran % Lymph % (Auto) [place] % (Auto) Eos % (Auto) Baso % (Auto) Gran # Lymph # [place] # Eos # Baso # pCO2 pO2 HCO3 ABG pH ABG Total CO2 ABG O2 Saturation ABG O2 Content ABG Base Excess ABG Hemoglobin ABG Carboxyhemoglobin POC ABG HHb (Measured) ABG Methemoglobin ABG O2 Capacity ABG Potassium Hgb O2 Saturation Glucose Lactate FiO2 Sodium Potassium Chloride Carbon Dioxide Anion Gap BUN Creatinine Est GFR ( Amer) Est GFR (Non-Af Amer) POC Glucose (mg/dL) 123 H Random Glucose Calcium Total Bilirubin AST ALT Alkaline Phosphatase Total Protein Albumin Globulin Albumin/Globulin Ratio Arterial Blood Potassium Fingerstick Blood Sugar Results: 294 Review of Systems - Constitutional Constitutional: Weakness. absent: Fever, Chills - EENT Eyes: absent: Blurred Vision, Change in Vision, Loss of Peripheral Vision Ears: absent: Tinnitus, Dizziness Nose/Mouth/Throat: absent: Post Nasal Drip, Mouth Pain, Facial Pain - Cardiovascular Cardiovascular: absent: Chest Pain, Chest Pain at Rest, Chest Pain with Activity , Claudication, Diaphoresis, Dyspnea, Dyspnea on Exertion, Edema, Irregular Heart Rhythm, Lightheadedness - Respiratory Respiratory: absent: Cough, Dyspnea, Hemoptysis, Dyspnea on Exertion, Wheezing, Snoring - Gastrointestinal Gastrointestinal: absent: Abdominal Pain, Constipation, Diarrhea, Vomiting - Genitourinary Genitourinary: absent: Change in Urinary Stream, Difficulty Urinating, Dysuria - Musculoskeletal Musculoskeletal: absent: Arthralgias, Back Pain, Numbness, Radiating Pain into Limb, Tingling - Integumentary Integumentary: Other (healing lesions on bilateral lower extremities) - Neurological Neurological: Weakness. absent: Confusion, Dizziness, Numbness, Sensory Deficit , Syncope, Tingling, Vertigo - Psychiatric Psychiatric: absent: Anxiety, Depression, Homicidal Ideation, Suicidal Ideation - Endocrine Endocrine: Fatigue. absent: Palpitations, Polydipsia, Polyphagia, Polyuria - Hematologic/Lymphatic Hematologic: absent: Easy Bleeding, Easy Bruising, Lymphadenopathy Critical Care Progress Note - Nutrition Nutrition: Nutrition Category Date Time Status Dysphagia/Modified Consistency Diet [DIET] Diets 05/15/17 Lunch Ordered Assessment/Plan - Assessment and Plan (Free Text) Assessment: 66 M with PMH of CAD, NIDDM, HTN, CHF, PVD was admitted for Left sided weakness who was found to have severe stenosis of R ICA s/p carotid angioplasty and stent placement POD#1 Neuro: Neurochecks, AAO x 3, normothermia, answering questions appropriately Pulm: Maintain SaO2 > 90%, head of bed elevated at 30 degrees Cardio: ASA, Plavix, Lasix, Pulse checks GI: PTX, LFTs trending down Renal: Continue IV fluids, BUN elevated Endo: Euglycemic control 140-180 Heme: Heparin SQ, ASA, Plavix ID: IV antibiotics to be discontinued as per ID due to elevated LFTs and cholestasis, bilateral lower lobe disease likely due to effusions or atlectasis , afebrile, no leukocytosis <Kyree Barnes - Last Filed: 05/19/17 17:22> CCU Objective - Vital Signs / Intake & Output Intake and Output (Last 8hrs): Intake & Output 05/19/17 05/19/17 05/19/17 06:59 14:59 22:59 Intake Total 1180 Output Total 3600 Balance -2420 Weight 134 lb 1 oz Intake: IV 1080 Right Forearm 1080 Oral 100 Output: Urine 3600 Urethral ([place]) 3600 - Medications Active Medications: Active Medications Generic Name Dose Route Start Last Admin Trade Name Freq PRN Reason Stop Dose Admin Albuterol/Ipratropium 3 ml 05/14/17 18:00 05/19/17 13:12 Duoneb 3 Mg/0.5 Mg (3 Ml) Ud IH 3 ml [id number] ANAHY Administration Albuterol/Ipratropium 3 ml 05/14/17 15:03 05/14/17 21:32 Duoneb 3 Mg/0.5 Mg (3 Ml) Ud IH 3 ml Q2H PRN Administration Shortness of Breath Aspirin 81 mg 05/14/17 10:00 05/19/17 11:13 Aspirin Chewable PO 81 mg DAILY ANAHY Administration Atorvastatin Calcium 40 mg 05/14/17 17:16 05/17/17 18:17 Lipitor PO 40 mg DIN ANAHY Administration Clopidogrel Bisulfate 75 mg 05/14/17 10:00 05/19/17 11:03 Plavix PO 75 mg DAILY ANAHY Administration Diphenhydramine HCl 25 mg 05/17/17 21:00 05/18/17 23:58 Benadryl PO 25 mg HS PRN Administration Insomnia Furosemide 40 mg 05/18/17 10:00 05/19/17 11:02 Lasix PO 40 mg DAILY ANAHY Administration Heparin Sodium (Porcine) 5,000 units 05/15/17 10:00 05/19/17 11:06 Heparin SC 5,000 units Q12 ANAHY Administration Protocol Sodium Chloride 1,000 mls @ 90 mls/hr 05/18/17 21:15 05/18/17 21:19 Sodium Chloride 0.9% IV 90 mls/hr .[id number] ANAYH Administration Insulin Human Regular 0 units 05/13/17 22:00 05/19/17 17:16 Humulin R Med SC 1 units ACHS ANAHY Administration Protocol Lisinopril 10 mg 05/18/17 10:00 05/19/17 11:04 Zestril PO 10 mg DAILY ANAHY Administration Pantoprazole Sodium 40 mg 05/14/17 07:30 05/19/17 11:03 Protonix Ec Tab PO 40 mg ACB ANAHY Administration - Patient Studies Lab Studies: Microbiology Studies 05/14/17 17:15 Blood Culture - Preliminary Blood NO GROWTH AFTER 4 DAYS 05/14/17 17:45 Blood Culture - Preliminary Blood NO GROWTH AFTER 4 DAYS Lab Studies 05/19/17 05/19/17 05/19/17 Range/Units 11:05 07:47 06:09 WBC (4.5-11.0) 10^3/ul RBC (3.5-6.1) 10^6/uL Hgb (14.0-18.0) g/dL Hct (42.0-52.0) % MCV (80.0-105.0) fl MCH (25.0-35.0) pg MCHC (31.0-37.0) g/dl RDW (11.5-14.5) % Plt Count (120.0-450.0) 10^3/uL MPV (7.0-11.0) fl Gran % (50.0-68.0) % Lymph % (Auto) (22.0-35.0) % [place] % (Auto) (1.0-6.0) % Eos % (Auto) (1.5-5.0) % Baso % (Auto) (0.0-3.0) % Gran # (1.4-6.5) Lymph # (1.2-3.4) [place] # (0.1-0.6) Eos # (0.0-0.7) Baso # (0.0-2.0) K/mm3 pCO2 36 (35-45) mm/Hg pO2 162.0 H (80-100) mm/Hg HCO3 25.6 (21-28) mmol/L ABG pH 7.46 H (7.35-7.45) ABG Total CO2 26.7 (22-28) mmol.L ABG O2 Saturation 99.9 H (95-98) % ABG O2 Content 18.3 (15-23) ML/dl ABG Base Excess 2.0 (-2.0-3.0) mmol/L ABG Hemoglobin 13.2 (11.7-17.4) g/dL ABG Carboxyhemoglobin 2.1 H (0.5-1.5) % POC ABG HHb (Measured) 0.1 (0-5) % ABG Methemoglobin 0.8 (0.0-3.0) % ABG O2 Capacity 18.3 (16-24) mL/dl ABG Potassium (3.6-5.2) mmol/L Hgb O2 Saturation 97.0 (95.0-98.0) % Glucose (75-110) mg/dl Lactate (0.7-2.1) mmol/L FiO2 36.0 % Sodium (132-148) mmol/L Potassium (3.6-5.0) mmol/L Chloride (98-107) mmol/L Carbon Dioxide (21-33) mmol/L Anion Gap (10-20) BUN (7-21) mg/dL Creatinine (0.8-1.5) mg/dl Est GFR ( Amer) Est GFR (Non-Af Amer) POC Glucose (mg/dL) 231 H 123 H (65-110) mg/dL Random Glucose (70-110) mg/dL Calcium (8.4-10.5) mg/dL Total Bilirubin (0.2-1.3) mg/dL AST (17-59) U/L ALT (7-56) U/L Alkaline Phosphatase (38-126) U/L Total Protein (5.8-8.3) g/dL Albumin (3.0-4.8) g/dL Globulin gm/dL Albumin/Globulin Ratio (1.1-1.8) Arterial Blood Potassium (3.6-5.2) mmol/L Hepatitis A IgM Ab (NEGATIVE) Hep Bs Antigen (NEGATIVE) Hep B Core IgM Ab (NEGATIVE) Hepatitis C Antibody (NEGATIVE) 05/19/17 05/19/17 05/18/17 Range/Units 05:30 05:30 22:10 WBC 8.9 (4.5-11.0) 10^3/ul RBC 4.66 (3.5-6.1) 10^6/uL Hgb 12.8 L (14.0-18.0) g/dL Hct 40.5 L (42.0-52.0) % MCV 86.9 (80.0-105.0) fl MCH 27.5 (25.0-35.0) pg MCHC 31.6 (31.0-37.0) g/dl RDW 14.3 (11.5-14.5) % Plt Count 174 (120.0-450.0) 10^3/uL MPV 11.1 H (7.0-11.0) fl Gran % 80.3 H (50.0-68.0) % Lymph % (Auto) 10.9 L (22.0-35.0) % [place] % (Auto) 7.8 H (1.0-6.0) % Eos % (Auto) 0.7 L (1.5-5.0) % Baso % (Auto) 0.3 (0.0-3.0) % Gran # 7.18 H (1.4-6.5) Lymph # 1.0 L (1.2-3.4) Chester # 0.7 H (0.1-0.6) Eos # 0.1 (0.0-0.7) Baso # 0.03 (0.0-2.0) K/mm3 pCO2 (35-45) mm/Hg pO2 (80-100) mm/Hg HCO3 (21-28) mmol/L ABG pH (7.35-7.45) ABG Total CO2 (22-28) mmol.L ABG O2 Saturation (95-98) % ABG O2 Content (15-23) ML/dl ABG Base Excess (-2.0-3.0) mmol/L ABG Hemoglobin (11.7-17.4) g/dL ABG Carboxyhemoglobin (0.5-1.5) % POC ABG HHb (Measured) (0-5) % ABG Methemoglobin (0.0-3.0) % ABG O2 Capacity (16-24) mL/dl ABG Potassium (3.6-5.2) mmol/L Hgb O2 Saturation (95.0-98.0) % Glucose (75-110) mg/dl Lactate (0.7-2.1) mmol/L FiO2 % Sodium 135 (132-148) mmol/L Potassium 4.1 (3.6-5.0) mmol/L Chloride 98 (98-107) mmol/L Carbon Dioxide 25 (21-33) mmol/L Anion Gap 16 (10-20) BUN 25 H (7-21) mg/dL Creatinine 1.4 (0.8-1.5) mg/dl Est GFR ( Amer) > 60 Est GFR (Non-Af Amer) 51 POC Glucose (mg/dL) 140 H (65-110) mg/dL Random Glucose 114 H (70-110) mg/dL Calcium 8.5 (8.4-10.5) mg/dL Total Bilirubin 1.9 H (0.2-1.3) mg/dL AST > 750 H D (17-59) U/L ALT 920 H (7-56) U/L Alkaline Phosphatase 77 (38-126) U/L Total Protein 5.5 L (5.8-8.3) g/dL Albumin 3.2 (3.0-4.8) g/dL Globulin 2.3 gm/dL Albumin/Globulin Ratio 1.4 (1.1-1.8) Arterial Blood Potassium (3.6-5.2) mmol/L Hepatitis A IgM Ab (NEGATIVE) Hep Bs Antigen (NEGATIVE) Hep B Core IgM Ab (NEGATIVE) Hepatitis C Antibody (NEGATIVE) 05/18/17 05/18/17 05/18/17 Range/Units 21:50 19:25 19:25 WBC 7.9 D (4.5-11.0) 10^3/ul RBC 4.58 (3.5-6.1) 10^6/uL Hgb 12.8 L D (14.0-18.0) g/dL Hct 39.3 L (42.0-52.0) % MCV 85.8 (80.0-105.0) fl MCH 27.9 (25.0-35.0) pg MCHC 32.6 (31.0-37.0) g/dl RDW 14.1 (11.5-14.5) % Plt Count 179 (120.0-450.0) 10^3/uL MPV 10.8 (7.0-11.0) fl Gran % 71.4 H (50.0-68.0) % Lymph % (Auto) 18.7 L (22.0-35.0) % Chester % (Auto) 8.7 H (1.0-6.0) % Eos % (Auto) 0.9 L (1.5-5.0) % Baso % (Auto) 0.3 (0.0-3.0) % Gran # 5.65 (1.4-6.5) Lymph # 1.5 (1.2-3.4) Chester # 0.7 H (0.1-0.6) Eos # 0.1 (0.0-0.7) Baso # 0.02 (0.0-2.0) K/mm3 pCO2 42 (35-45) mm/Hg pO2 56.0 L (80-100) mm/Hg HCO3 27.9 (21-28) mmol/L ABG pH 7.43 (7.35-7.45) ABG Total CO2 29.2 H (22-28) mmol.L ABG O2 Saturation 92.8 L (95-98) % ABG O2 Content (15-23) ML/dl ABG Base Excess 3.2 H (-2.0-3.0) mmol/L ABG Hemoglobin (11.7-17.4) g/dL ABG Carboxyhemoglobin (0.5-1.5) % POC ABG HHb (Measured) (0-5) % ABG Methemoglobin (0.0-3.0) % ABG O2 Capacity (16-24) mL/dl ABG Potassium 3.6 (3.6-5.2) mmol/L Hgb O2 Saturation (95.0-98.0) % Glucose 141 H (75-110) mg/dl Lactate 1.7 (0.7-2.1) mmol/L FiO2 24.0 % Sodium 135.0 (132-148) mmol/L Potassium (3.6-5.0) mmol/L Chloride 99.0 (98-107) mmol/L Carbon Dioxide (21-33) mmol/L Anion Gap (10-20) BUN (7-21) mg/dL Creatinine (0.8-1.5) mg/dl Est GFR ( Amer) Est GFR (Non-Af Amer) POC Glucose (mg/dL) (65-110) mg/dL Random Glucose (70-110) mg/dL Calcium (8.4-10.5) mg/dL Total Bilirubin (0.2-1.3) mg/dL AST (17-59) U/L ALT (7-56) U/L Alkaline Phosphatase (38-126) U/L Total Protein (5.8-8.3) g/dL Albumin (3.0-4.8) g/dL Globulin gm/dL Albumin/Globulin Ratio (1.1-1.8) Arterial Blood Potassium 3.6 (3.6-5.2) mmol/L Hepatitis A IgM Ab Negative (NEGATIVE) Hep Bs Antigen Negative (NEGATIVE) Hep B Core IgM Ab Negative (NEGATIVE) Hepatitis C Antibody Negative (NEGATIVE) 05/18/17 Range/Units 19:25 WBC (4.5-11.0) 10^3/ul RBC (3.5-6.1) 10^6/uL Hgb (14.0-18.0) g/dL Hct (42.0-52.0) % MCV (80.0-105.0) fl MCH (25.0-35.0) pg MCHC (31.0-37.0) g/dl RDW (11.5-14.5) % Plt Count (120.0-450.0) 10^3/uL MPV (7.0-11.0) fl Gran % (50.0-68.0) % Lymph % (Auto) (22.0-35.0) % Chester % (Auto) (1.0-6.0) % Eos % (Auto) (1.5-5.0) % Baso % (Auto) (0.0-3.0) % Gran # (1.4-6.5) Lymph # (1.2-3.4) Chester # (0.1-0.6) Eos # (0.0-0.7) Baso # (0.0-2.0) K/mm3 pCO2 (35-45) mm/Hg pO2 (80-100) mm/Hg HCO3 (21-28) mmol/L ABG pH (7.35-7.45) ABG Total CO2 (22-28) mmol.L ABG O2 Saturation (95-98) % ABG O2 Content (15-23) ML/dl ABG Base Excess (-2.0-3.0) mmol/L ABG Hemoglobin (11.7-17.4) g/dL ABG Carboxyhemoglobin (0.5-1.5) % POC ABG HHb (Measured) (0-5) % ABG Methemoglobin (0.0-3.0) % ABG O2 Capacity (16-24) mL/dl ABG Potassium (3.6-5.2) mmol/L Hgb O2 Saturation (95.0-98.0) % Glucose (75-110) mg/dl Lactate (0.7-2.1) mmol/L FiO2 % Sodium 132 (132-148) mmol/L Potassium 4.2 (3.6-5.0) mmol/L Chloride 101 (98-107) mmol/L Carbon Dioxide 22 (21-33) mmol/L Anion Gap 13 (10-20) BUN 25 H (7-21) mg/dL Creatinine 1.3 (0.8-1.5) mg/dl Est GFR ( Amer) > 60 Est GFR (Non-Af Amer) 55 POC Glucose (mg/dL) (65-110) mg/dL Random Glucose 140 H (70-110) mg/dL Calcium 8.1 L (8.4-10.5) mg/dL Total Bilirubin (0.2-1.3) mg/dL AST (17-59) U/L ALT (7-56) U/L Alkaline Phosphatase (38-126) U/L Total Protein (5.8-8.3) g/dL Albumin (3.0-4.8) g/dL Globulin gm/dL Albumin/Globulin Ratio (1.1-1.8) Arterial Blood Potassium (3.6-5.2) mmol/L Hepatitis A IgM Ab (NEGATIVE) Hep Bs Antigen (NEGATIVE) Hep B Core IgM Ab (NEGATIVE) Hepatitis C Antibody (NEGATIVE) Laboratory Results - last 24 hr 05/18/17 05/18/17 05/18/17 19:25 19:25 19:25 WBC 7.9 D RBC 4.58 Hgb 12.8 L D Hct 39.3 L MCV 85.8 MCH 27.9 MCHC 32.6 RDW 14.1 Plt Count 179 MPV 10.8 Gran % 71.4 H Lymph % (Auto) 18.7 L Chester % (Auto) 8.7 H Eos % (Auto) 0.9 L Baso % (Auto) 0.3 Gran # 5.65 Lymph # 1.5 Chester # 0.7 H Eos # 0.1 Baso # 0.02 pCO2 pO2 HCO3 ABG pH ABG Total CO2 ABG O2 Saturation ABG O2 Content ABG Base Excess ABG Hemoglobin ABG Carboxyhemoglobin POC ABG HHb (Measured) ABG Methemoglobin ABG O2 Capacity ABG Potassium Hgb O2 Saturation Glucose Lactate FiO2 Sodium 132 Potassium 4.2 Chloride 101 Carbon Dioxide 22 Anion Gap 13 BUN 25 H Creatinine 1.3 Est GFR ( Amer) > 60 Est GFR (Non-Af Amer) 55 POC Glucose (mg/dL) Random Glucose 140 H Calcium 8.1 L Total Bilirubin AST ALT Alkaline Phosphatase Total Protein Albumin Globulin Albumin/Globulin Ratio Arterial Blood Potassium Hepatitis A IgM Ab Negative Hep Bs Antigen Negative Hep B Core IgM Ab Negative Hepatitis C Antibody Negative 05/18/17 05/18/17 05/19/17 21:50 22:10 05:30 WBC 8.9 RBC 4.66 Hgb 12.8 L Hct 40.5 L MCV 86.9 MCH 27.5 MCHC 31.6 RDW 14.3 Plt Count 174 MPV 11.1 H Gran % 80.3 H Lymph % (Auto) 10.9 L Chester % (Auto) 7.8 H Eos % (Auto) 0.7 L Baso % (Auto) 0.3 Gran # 7.18 H Lymph # 1.0 L Chester # 0.7 H Eos # 0.1 Baso # 0.03 pCO2 42 pO2 56.0 L HCO3 27.9 ABG pH 7.43 ABG Total CO2 29.2 H ABG O2 Saturation 92.8 L ABG O2 Content ABG Base Excess 3.2 H ABG Hemoglobin ABG Carboxyhemoglobin POC ABG HHb (Measured) ABG Methemoglobin ABG O2 Capacity ABG Potassium 3.6 Hgb O2 Saturation Glucose 141 H Lactate 1.7 FiO2 24.0 Sodium 135.0 Potassium Chloride 99.0 Carbon Dioxide Anion Gap BUN Creatinine Est GFR ( Amer) Est GFR (Non-Af Amer) POC Glucose (mg/dL) 140 H Random Glucose Calcium Total Bilirubin AST ALT Alkaline Phosphatase Total Protein Albumin Globulin Albumin/Globulin Ratio Arterial Blood Potassium 3.6 Hepatitis A IgM Ab Hep Bs Antigen Hep B Core IgM Ab Hepatitis C Antibody 05/19/17 05/19/17 05/19/17 05:30 06:09 07:47 WBC RBC Hgb Hct MCV MCH MCHC RDW Plt Count MPV Gran % Lymph % (Auto) Chester % (Auto) Eos % (Auto) Baso % (Auto) Gran # Lymph # Chester # Eos # Baso # pCO2 36 pO2 162.0 H HCO3 25.6 ABG pH 7.46 H ABG Total CO2 26.7 ABG O2 Saturation 99.9 H ABG O2 Content 18.3 ABG Base Excess 2.0 ABG Hemoglobin 13.2 ABG Carboxyhemoglobin 2.1 H POC ABG HHb (Measured) 0.1 ABG Methemoglobin 0.8 ABG O2 Capacity 18.3 ABG Potassium Hgb O2 Saturation 97.0 Glucose Lactate FiO2 36.0 Sodium 135 Potassium 4.1 Chloride 98 Carbon Dioxide 25 Anion Gap 16 BUN 25 H Creatinine 1.4 Est GFR ( Amer) > 60 Est GFR (Non-Af Amer) 51 POC Glucose (mg/dL) 123 H Random Glucose 114 H Calcium 8.5 Total Bilirubin 1.9 H AST > 750 H D ALT 920 H Alkaline Phosphatase 77 Total Protein 5.5 L Albumin 3.2 Globulin 2.3 Albumin/Globulin Ratio 1.4 Arterial Blood Potassium Hepatitis A IgM Ab Hep Bs Antigen Hep B Core IgM Ab Hepatitis C Antibody 05/19/17 11:05 WBC RBC Hgb Hct MCV MCH MCHC RDW Plt Count MPV Gran % Lymph % (Auto) Chester % (Auto) Eos % (Auto) Baso % (Auto) Gran # Lymph # Chester # Eos # Baso # pCO2 pO2 HCO3 ABG pH ABG Total CO2 ABG O2 Saturation ABG O2 Content ABG Base Excess ABG Hemoglobin ABG Carboxyhemoglobin POC ABG HHb (Measured) ABG Methemoglobin ABG O2 Capacity ABG Potassium Hgb O2 Saturation Glucose Lactate FiO2 Sodium Potassium Chloride Carbon Dioxide Anion Gap BUN Creatinine Est GFR ( Amer) Est GFR (Non-Af Amer) POC Glucose (mg/dL) 231 H Random Glucose Calcium Total Bilirubin AST ALT Alkaline Phosphatase Total Protein Albumin Globulin Albumin/Globulin Ratio Arterial Blood Potassium Hepatitis A IgM Ab Hep Bs Antigen Hep B Core IgM Ab Hepatitis C Antibody Critical Care Progress Note - Nutrition Nutrition: Nutrition Category Date Time Status Dysphagia/Modified Consistency Diet [DIET] Diets 05/19/17 Dinner Ordered Attending/Attestation - Attestation I have personally seen and examined this patient.: Yes I have fully participated in the care of the patient.: Yes I have reviewed all pertinent clinical information: Yes Notes (Text): 05/19/17 17:21 66 yo with R.MCA infarct, s/p R ICA stenting, had uneventful night, no worseing neurodeficit, no chest pain, vascular exam of lower extremities is unchanged. No signs of bleeding. aspirin and plavix are continued.
--- NOTE | 2017-05-19 10:10 | CP.PCM.PN ---
Subjective - Date & Time of Evaluation Date of Evaluation: 05/19/17 Time of Evaluation: 09:20 - Subjective Subjective: Resting comfortably on a chair, no abdominal pain, no nausea or vomiting, no cough, breathing ok, no headache or neck pain, no diarrhea. Objective - Vital Signs/Intake and Output Vital Signs (last 24 hours): Temp Pulse Resp BP Pulse Ox 97.9 F 94 H 39 H 112/63 100 05/19/17 00:01 05/19/17 05:40 05/19/17 05:40 05/19/17 05:00 05/19/17 05:40 Intake and Output: 05/18/17 05/19/17 18:59 06:59 Intake Total 600 1180 Output Total 250 3600 Balance 350 -2420 - Medications Medications: Current Medications Albuterol/Ipratropium (Duoneb 3 Mg/0.5 Mg (3 Ml) Ud) 3 ml IH [id number] [facility] Last Admin: 05/19/17 02:03 Dose: Not Given Albuterol/Ipratropium (Duoneb 3 Mg/0.5 Mg (3 Ml) Ud) 3 ml IH Q2H PRN PRN Reason: Shortness of Breath Last Admin: 05/14/17 21:32 Dose: 3 ml Aspirin (Aspirin Chewable) 81 mg PO DAILY [facility] Last Admin: 05/18/17 11:18 Dose: 81 mg Atorvastatin Calcium (Lipitor) 40 mg PO DIN [facility] Last Admin: 05/17/17 18:17 Dose: 40 mg Clopidogrel Bisulfate (Plavix) 75 mg PO DAILY [facility] Last Admin: 05/18/17 11:18 Dose: 75 mg Diphenhydramine HCl (Benadryl) 25 mg PO HS PRN PRN Reason: Insomnia Last Admin: 05/18/17 23:58 Dose: 25 mg Furosemide (Lasix) 40 mg PO DAILY [facility] Last Admin: 05/18/17 09:41 Dose: Not Given Heparin Sodium (Porcine) (Heparin) 5,000 units SC Q12 [facility]NA[facility] PRN Reason: Protocol Last Admin: 05/19/17 00:01 Dose: 5,000 units Sodium Chloride (Sodium Chloride 0.9%) 1,000 mls @ 90 mls/hr IV .[id number] [facility] Last Admin: 05/18/17 21:19 Dose: 90 mls/hr Insulin Human Regular (Humulin R Med) 0 units SC ACHS [facility] PRN Reason: Protocol Last Admin: 05/18/17 22:00 Dose: Not Given Lisinopril (Zestril) 10 mg PO DAILY [facility] Last Admin: 05/18/17 11:18 Dose: 10 mg Pantoprazole Sodium (Protonix Ec Tab) 40 mg PO ACB [facility] Last Admin: 05/18/17 06:31 Dose: Not Given - Labs Labs: 05/19/17 05:30 05/18/17 19:25 PT 14.9 SECONDS (9.4-12.5) H 05/14/17 06:30 INR 1.35 (0.93-1.08) H 05/14/17 06:30 APTT 28.4 Seconds (25.1-36.5) 05/13/17 15:54 - Constitutional Appears: Non-toxic, Chronically Ill - Head Exam Head Exam: NORMAL INSPECTION - ENT Exam ENT Exam: Mucous Membranes Moist - Neck Exam Neck Exam: absent: Meningismus - Respiratory Exam Respiratory Exam: Decreased Breath Sounds (at the bases) - Cardiovascular Exam Cardiovascular Exam: +S1, +S2 - GI/Abdominal Exam GI & Abdominal Exam: Soft. absent: Tenderness Assessment and Plan - Assessment and Plan (Free Text) Plan: Assessment hypoxic respiratory failure, consider due to acute on chronic CHF, less likely HCAP acute hepatitis with cholestasis, R/O drug-induced, slowly improving R/O TIA CAD S/P CABG S/P AICD placement DM S/P hernia repair Plan we have d/c'ed Merrem and Doxycycline because of the transaminitis and cholestatis and will continue to monitor and trend (slowly improving); statin was also stopped by primary team; blood cultures are negative; reviewed CT chest and CXR's which shows bilateral lower lobe consolidation but it looks more like atelectasis; PCT is low at 0.12 discussed with medical team
--- NOTE | 2017-05-19 10:53 | CP.PCM.CON ---
<Rebeca Vo - Last Filed: 05/19/17 10:36> History of Present Illness - History of Present Illness History of Present Illness: Seen and examined at the bedside this a.m., chart reviewed. Request for GI consult is for transaminitis. HPI: This is a 58-year-old male with a past medical his status post CABG, AICD, NIDDM came to the emergency r for complaints of weakness. The patient went to get up to answer the door and the patient's legs went weak. The patient denies loss of consciou or head injury. Neighbor continued to knock on the door and the patient was not answering, the neighbor called the fire department who found the patient on the floor. The patient was found to have left sided weakness of upper and lower extremity in the ER, CODE stroke was called, no tPA administered. Patent had few CTA head and neck reporting questionable thrombus of left middle cerebral arter and stenosis of the SAM. The patient is s/p carotid stent, in review of labs he was found to have elevated LFT. Patient denies SOB, CP, N/V or abdominal pain, wt. loss, dysphagia, anorexia. He did haave abdominal US that was negative for GB stones, CBD 4.6mm, and fatty liver. Denies colon or egd. PMH: NIDDM,CAD,HTN PSH: ACID placement, CABG, hernia repair Allergies: NKDA Social HX: former smoker, quit 12 yr aog,denies ETOh, drugs FHX: noncontributory MEDS: reviewed as per MAR ROS: systems reviewed with positive findings, see HPI Past Patient History - Infectious Disease Hx of Infectious Diseases: None - Past Social History Smoking Status: Former Smoker - CARDIAC Hx Cardiac Disorders: Yes Hx Hypertension: Yes - PULMONARY Hx Respiratory Disorders: No - NEUROLOGICAL Hx Neurological Disorder: No - HEENT Hx HEENT Problems: Yes (TONSILLECTOMY) - RENAL Hx Chronic Kidney Disease: No - ENDOCRINE/METABOLIC Hx Diabetes Mellitus Type 2: Yes - HEMATOLOGICAL/ONCOLOGICAL Hx Blood Disorders: No - INTEGUMENTARY Hx Dermatological Problems: No - MUSCULOSKELETAL/RHEUMATOLOGICAL Hx Musculoskeletal Disorders: No Hx Falls: Yes Hx Unsteady Gait: Yes - GASTROINTESTINAL Hx Gastrointestinal Disorders: Yes (HERNIORHAPPHY) - GENITOURINARY/GYNECOLOGICAL Hx Genitourinary Disorders: No - PSYCHIATRIC Hx Psychophysiologic Disorder: No Hx Substance Use: No - SURGICAL HISTORY Hx Surgeries: No (PACEMAKER LCW) Meds Allergies/Adverse Reactions: Allergies Allergy/AdvReac Type Severity Reaction Status Date / Time No Known Allergies Allergy Verified 05/13/17 20:11 - Medications Medications: Current Medications Albuterol/Ipratropium (Duoneb 3 Mg/0.5 Mg (3 Ml) Ud) 3 ml IH [id number] [facility] Last Admin: 05/19/17 07:02 Dose: 3 ml Albuterol/Ipratropium (Duoneb 3 Mg/0.5 Mg (3 Ml) Ud) 3 ml IH Q2H PRN PRN Reason: Shortness of Breath Last Admin: 05/14/17 21:32 Dose: 3 ml Aspirin (Aspirin Chewable) 81 mg PO DAILY [facility] Last Admin: 05/18/17 11:18 Dose: 81 mg Atorvastatin Calcium (Lipitor) 40 mg PO DIN [facility] Last Admin: 05/17/17 18:17 Dose: 40 mg Clopidogrel Bisulfate (Plavix) 75 mg PO DAILY [facility] Last Admin: 05/18/17 11:18 Dose: 75 mg Diphenhydramine HCl (Benadryl) 25 mg PO HS PRN PRN Reason: Insomnia Last Admin: 05/18/17 23:58 Dose: 25 mg Furosemide (Lasix) 40 mg PO DAILY [facility] Last Admin: 05/18/17 09:41 Dose: Not Given Heparin Sodium (Porcine) (Heparin) 5,000 units SC Q12 [facility] PRN Reason: Protocol Last Admin: 05/19/17 00:01 Dose: 5,000 units Sodium Chloride (Sodium Chloride 0.9%) 1,000 mls @ 90 mls/hr IV .Q11H7M [facility] Last Admin: 05/18/17 21:19 Dose: 90 mls/hr Insulin Human Regular (Humulin R Med) 0 units SC ACHS [facility] PRN Reason: Protocol Last Admin: 05/18/17 22:00 Dose: Not Given Lisinopril (Zestril) 10 mg PO DAILY [facility] Last Admin: 05/18/17 11:18 Dose: 10 mg Pantoprazole Sodium (Protonix Ec Tab) 40 mg PO ACB [facility] Last Admin: 05/18/17 06:31 Dose: Not Given Physical Exam - Constitutional Appears: No Acute Distress - Head Exam Head Exam: NORMAL INSPECTION - Eye Exam Eye Exam: Normal appearance. absent: Scleral icterus - ENT Exam ENT Exam: Mucous Membranes Moist - Neck Exam Neck exam: Positive for: Normal Inspection. Negative for: Tenderness - Respiratory Exam Respiratory Exam: Decreased Breath Sounds, NORMAL BREATHING PATTERN. absent: Rales, Wheezes, Respiratory Distress - Cardiovascular Exam Cardiovascular Exam: +S1, +S2 - GI/Abdominal Exam GI & Abdominal Exam: Normal Bowel Sounds, Soft. absent: Guarding, Rebound, Tenderness - Extremities Exam Extremities exam: Negative for: calf tenderness, pedal edema - Neurological Exam Neurological exam: Alert, Altered, Oriented x3 Additional comments: left sided weakness, can stand w/assist - Skin Skin Exam: Dry, Warm Results - Vital Signs Recent Vital Signs: Last Vital Signs Temp 97.9 F 05/19/17 00:01 Pulse 94 H 05/19/17 05:40 Resp 39 H 05/19/17 05:40 BP 112/63 05/19/17 05:00 Pulse Ox 100 05/19/17 05:40 - Labs Result Diagrams: 05/19/17 05:30 05/19/17 05:30 Labs: Laboratory Results - last 24 hr 05/18/17 05/18/17 05/18/17 06:45 11:40 19:25 WBC RBC Hgb Hct MCV MCH MCHC RDW Plt Count MPV Gran % Lymph % (Auto) [place] % (Auto) Eos % (Auto) Baso % (Auto) Gran # Lymph # [place] # Eos # Baso # pCO2 pO2 HCO3 ABG pH ABG Total CO2 ABG O2 Saturation ABG O2 Content ABG Base Excess ABG Hemoglobin ABG Carboxyhemoglobin POC ABG HHb (Measured) ABG Methemoglobin ABG O2 Capacity ABG Potassium Hgb O2 Saturation Glucose Lactate FiO2 Sodium 131 L 131 L 132 Potassium 5.7 H* D 5.4 H 4.2 Chloride 95 L 94 L 101 Carbon Dioxide 26 22 Anion Gap 16 13 BUN 27 H 25 H Creatinine 1.5 1.3 Est GFR ( Amer) 57 > 60 Est GFR (Non-Af Amer) 47 55 POC Glucose (mg/dL) Random Glucose 213 H 140 H Calcium 9.6 9.6 8.1 L Total Bilirubin 3.0 H AST 1922 H ALT 1306 H Alkaline Phosphatase 89 83 Total Protein 6.7 Albumin 4.1 Globulin 2.6 Albumin/Globulin Ratio 1.6 Arterial Blood Potassium 05/18/17 05/18/17 05/18/17 19:25 21:50 22:10 WBC 7.9 D RBC 4.58 Hgb 12.8 L D Hct 39.3 L MCV 85.8 MCH 27.9 MCHC 32.6 RDW 14.1 Plt Count 179 MPV 10.8 Gran % 71.4 H Lymph % (Auto) 18.7 L [place] % (Auto) 8.7 H Eos % (Auto) 0.9 L Baso % (Auto) 0.3 Gran # 5.65 Lymph # 1.5 [place] # 0.7 H Eos # 0.1 Baso # 0.02 pCO2 42 pO2 56.0 L HCO3 27.9 ABG pH 7.43 ABG Total CO2 29.2 H ABG O2 Saturation 92.8 L ABG O2 Content ABG Base Excess 3.2 H ABG Hemoglobin ABG Carboxyhemoglobin POC ABG HHb (Measured) ABG Methemoglobin ABG O2 Capacity ABG Potassium 3.6 Hgb O2 Saturation Glucose 141 H Lactate 1.7 FiO2 24.0 Sodium 135.0 Potassium Chloride 99.0 Carbon Dioxide Anion Gap BUN Creatinine Est GFR ( Amer) Est GFR (Non-Af Amer) POC Glucose (mg/dL) 140 H Random Glucose Calcium Total Bilirubin AST ALT Alkaline Phosphatase Total Protein Albumin Globulin Albumin/Globulin Ratio Arterial Blood Potassium 3.6 05/19/17 05/19/17 05/19/17 05:30 05:30 06:09 WBC 8.9 RBC 4.66 Hgb 12.8 L Hct 40.5 L MCV 86.9 MCH 27.5 MCHC 31.6 RDW 14.3 Plt Count 174 MPV 11.1 H Gran % 80.3 H Lymph % (Auto) 10.9 L [place] % (Auto) 7.8 H Eos % (Auto) 0.7 L Baso % (Auto) 0.3 Gran # 7.18 H Lymph # 1.0 L [place] # 0.7 H Eos # 0.1 Baso # 0.03 pCO2 36 pO2 162.0 H HCO3 25.6 ABG pH 7.46 H ABG Total CO2 26.7 ABG O2 Saturation 99.9 H ABG O2 Content 18.3 ABG Base Excess 2.0 ABG Hemoglobin 13.2 ABG Carboxyhemoglobin 2.1 H POC ABG HHb (Measured) 0.1 ABG Methemoglobin 0.8 ABG O2 Capacity 18.3 ABG Potassium Hgb O2 Saturation 97.0 Glucose Lactate FiO2 36.0 Sodium 135 Potassium 4.1 Chloride 98 Carbon Dioxide 25 Anion Gap 16 BUN 25 H Creatinine 1.4 Est GFR ( Amer) > 60 Est GFR (Non-Af Amer) 51 POC Glucose (mg/dL) Random Glucose 114 H Calcium 8.5 Total Bilirubin 1.9 H AST > 750 H D ALT 920 H Alkaline Phosphatase 77 Total Protein 5.5 L Albumin 3.2 Globulin 2.3 Albumin/Globulin Ratio 1.4 Arterial Blood Potassium 05/19/17 07:47 WBC RBC Hgb Hct MCV MCH MCHC RDW Plt Count MPV Gran % Lymph % (Auto) [place] % (Auto) Eos % (Auto) Baso % (Auto) Gran # Lymph # [place] # Eos # Baso # pCO2 pO2 HCO3 ABG pH ABG Total CO2 ABG O2 Saturation ABG O2 Content ABG Base Excess ABG Hemoglobin ABG Carboxyhemoglobin POC ABG HHb (Measured) ABG Methemoglobin ABG O2 Capacity ABG Potassium Hgb O2 Saturation Glucose Lactate FiO2 Sodium Potassium Chloride Carbon Dioxide Anion Gap BUN Creatinine Est GFR ( Amer) Est GFR (Non-Af Amer) POC Glucose (mg/dL) 123 H Random Glucose Calcium Total Bilirubin AST ALT Alkaline Phosphatase Total Protein Albumin Globulin Albumin/Globulin Ratio Arterial Blood Potassium Assessment & Plan - Assessment and Plan (Free Text) Assessment: ASSESSMENT: Carotid artery stenosis, SAM, s/p carotid stent Elevated LFT, differential to consider, hepatic congestion, lowflow state, medication induced, r/o infectious hepatitis Pneumonia Elevated Triponins CAD/CABG/AICD PLAN: FU hepatitis panel trend LFT avoid hepatotoxic medication diet as tolerated on Plavix/Aspirin on Heparin SQ Meropenum DC'd Liptior on Hold Thank you for allowing us to participate in your patient care, further recommendation based upon clinical course. Seen and discussed w/ Dr. Hahn. <Nichole Hahn V - Last Filed: 05/19/17 23:39> Meds - Medications Medications: Current Medications Albuterol/Ipratropium (Duoneb 3 Mg/0.5 Mg (3 Ml) Ud) 3 ml IH [id number] [facility] Last Admin: 05/19/17 20:28 Dose: 3 ml Albuterol/Ipratropium (Duoneb 3 Mg/0.5 Mg (3 Ml) Ud) 3 ml IH Q2H PRN PRN Reason: Shortness of Breath Last Admin: 05/14/17 21:32 Dose: 3 ml Aspirin (Aspirin Chewable) 81 mg PO DAILY [facility] Last Admin: 05/19/17 11:13 Dose: 81 mg Atorvastatin Calcium (Lipitor) 40 mg PO DIN [facility] Last Admin: 05/17/17 18:17 Dose: 40 mg Clopidogrel Bisulfate (Plavix) 75 mg PO DAILY [facility] Last Admin: 05/19/17 11:03 Dose: 75 mg Diphenhydramine HCl (Benadryl) 25 mg PO HS PRN PRN Reason: Insomnia Last Admin: 05/19/17 23:35 Dose: 25 mg Furosemide (Lasix) 40 mg PO DAILY [facility] Last Admin: 05/19/17 11:02 Dose: 40 mg Heparin Sodium (Porcine) (Heparin) 5,000 units SC Q12 [facility] PRN Reason: Protocol Last Admin: 05/19/17 22:40 Dose: 5,000 units Hydrocortisone (Cortizone 2.5% Cream) 1 applic TOP BID PRN PRN Reason: Itching / Pruritus Sodium Chloride (Sodium Chloride 0.9%) 1,000 mls @ 90 mls/hr IV .Q11H7M [facility] Last Admin: 05/18/17 21:19 Dose: 90 mls/hr Insulin Human Regular (Humulin R Med) 0 units SC ACHS [facility] PRN Reason: Protocol Last Admin: 05/19/17 22:42 Dose: Not Given Lisinopril (Zestril) 10 mg PO DAILY [facility] Last Admin: 05/19/17 11:04 Dose: 10 mg Pantoprazole Sodium (Protonix Ec Tab) 40 mg PO ACB [facility] Last Admin: 05/19/17 11:03 Dose: 40 mg Results - Vital Signs Recent Vital Signs: Last Vital Signs Temp 98.6 F 05/19/17 16:00 Pulse 89 05/19/17 16:00 Resp 20 05/19/17 16:00 BP 99/62 L 05/19/17 16:00 Pulse Ox 95 05/19/17 16:00 - Labs Result Diagrams: 05/19/17 05:30 05/19/17 05:30 Labs: Laboratory Results - last 24 hr 05/17/17 05/17/17 05/17/17 07:43 11:27 16:34 WBC RBC Hgb Hct MCV MCH MCHC RDW Plt Count MPV Gran % Lymph % (Auto) [place] % (Auto) Eos % (Auto) Baso % (Auto) Gran # Lymph # [place] # Eos # Baso # pCO2 pO2 HCO3 ABG pH ABG Total CO2 ABG O2 Saturation ABG O2 Content ABG Base Excess ABG Hemoglobin ABG Carboxyhemoglobin POC ABG HHb (Measured) ABG Methemoglobin ABG O2 Capacity Hgb O2 Saturation FiO2 Sodium Potassium Chloride Carbon Dioxide Anion Gap BUN Creatinine Est GFR ( Amer) Est GFR (Non-Af Amer) POC Glucose (mg/dL) 182 H 239 H 237 H Random Glucose Calcium Total Bilirubin AST ALT Alkaline Phosphatase Lactate Dehydrogenase Total Protein Albumin Globulin Albumin/Globulin Ratio Hepatitis A IgM Ab Hep Bs Antigen Hep B Core IgM Ab Hepatitis C Antibody 05/17/17 05/18/17 05/18/17 21:20 07:39 11:32 WBC RBC Hgb Hct MCV MCH MCHC RDW Plt Count MPV Gran % Lymph % (Auto) [place] % (Auto) Eos % (Auto) Baso % (Auto) Gran # Lymph # [place] # Eos # Baso # pCO2 pO2 HCO3 ABG pH ABG Total CO2 ABG O2 Saturation ABG O2 Content ABG Base Excess ABG Hemoglobin ABG Carboxyhemoglobin POC ABG HHb (Measured) ABG Methemoglobin ABG O2 Capacity Hgb O2 Saturation FiO2 Sodium Potassium Chloride Carbon Dioxide Anion Gap BUN Creatinine Est GFR ( Amer) Est GFR (Non-Af Amer) POC Glucose (mg/dL) 223 H 145 H 216 H Random Glucose Calcium Total Bilirubin AST ALT Alkaline Phosphatase Lactate Dehydrogenase Total Protein Albumin Globulin Albumin/Globulin Ratio Hepatitis A IgM Ab Hep Bs Antigen Hep B Core IgM Ab Hepatitis C Antibody 05/18/17 05/18/17 05/19/17 19:25 22:10 05:30 WBC 8.9 RBC 4.66 Hgb 12.8 L Hct 40.5 L MCV 86.9 MCH 27.5 MCHC 31.6 RDW 14.3 Plt Count 174 MPV 11.1 H Gran % 80.3 H Lymph % (Auto) 10.9 L [place] % (Auto) 7.8 H Eos % (Auto) 0.7 L Baso % (Auto) 0.3 Gran # 7.18 H Lymph # 1.0 L [place] # 0.7 H Eos # 0.1 Baso # 0.03 pCO2 pO2 HCO3 ABG pH ABG Total CO2 ABG O2 Saturation ABG O2 Content ABG Base Excess ABG Hemoglobin ABG Carboxyhemoglobin POC ABG HHb (Measured) ABG Methemoglobin ABG O2 Capacity Hgb O2 Saturation FiO2 Sodium Potassium Chloride Carbon Dioxide Anion Gap BUN Creatinine Est GFR ( Amer) Est GFR (Non-Af Amer) POC Glucose (mg/dL) 140 H Random Glucose Calcium Total Bilirubin AST ALT Alkaline Phosphatase Lactate Dehydrogenase Total Protein Albumin Globulin Albumin/Globulin Ratio Hepatitis A IgM Ab Negative Hep Bs Antigen Negative Hep B Core IgM Ab Negative Hepatitis C Antibody Negative 05/19/17 05/19/17 05/19/17 05:30 05:30 06:09 WBC RBC Hgb Hct MCV MCH MCHC RDW Plt Count MPV Gran % Lymph % (Auto) [place] % (Auto) Eos % (Auto) Baso % (Auto) Gran # Lymph # [place] # Eos # Baso # pCO2 36 pO2 162.0 H HCO3 25.6 ABG pH 7.46 H ABG Total CO2 26.7 ABG O2 Saturation 99.9 H ABG O2 Content 18.3 ABG Base Excess 2.0 ABG Hemoglobin 13.2 ABG Carboxyhemoglobin 2.1 H POC ABG HHb (Measured) 0.1 ABG Methemoglobin 0.8 ABG O2 Capacity 18.3 Hgb O2 Saturation 97.0 FiO2 36.0 Sodium 135 Potassium 4.1 Chloride 98 Carbon Dioxide 25 Anion Gap 16 BUN 25 H Creatinine 1.4 Est GFR ( Amer) > 60 Est GFR (Non-Af Amer) 51 POC Glucose (mg/dL) Random Glucose 114 H Calcium 8.5 Total Bilirubin 1.9 H AST > 750 H D ALT 920 H Alkaline Phosphatase 77 Lactate Dehydrogenase 1611 H Total Protein 5.5 L Albumin 3.2 Globulin 2.3 Albumin/Globulin Ratio 1.4 Hepatitis A IgM Ab Hep Bs Antigen Hep B Core IgM Ab Hepatitis C Antibody 05/19/17 05/19/17 07:47 11:05 WBC RBC Hgb Hct MCV MCH MCHC RDW Plt Count MPV Gran % Lymph % (Auto) [place] % (Auto) Eos % (Auto) Baso % (Auto) Gran # Lymph # [place] # Eos # Baso # pCO2 pO2 HCO3 ABG pH ABG Total CO2 ABG O2 Saturation ABG O2 Content ABG Base Excess ABG Hemoglobin ABG Carboxyhemoglobin POC ABG HHb (Measured) ABG Methemoglobin ABG O2 Capacity Hgb O2 Saturation FiO2 Sodium Potassium Chloride Carbon Dioxide Anion Gap BUN Creatinine Est GFR ( Amer) Est GFR (Non-Af Amer) POC Glucose (mg/dL) 123 H 231 H Random Glucose Calcium Total Bilirubin AST ALT Alkaline Phosphatase Lactate Dehydrogenase Total Protein Albumin Globulin Albumin/Globulin Ratio Hepatitis A IgM Ab Hep Bs Antigen Hep B Core IgM Ab Hepatitis C Antibody Attending/Attestation - Attestation I have personally seen and examined this patient.: Yes I have fully participated in the care of the patient.: Yes I have reviewed all pertinent clinical information: Yes Notes (Text): This patient was seen and evaluated earlier. This is an addendum to the GI consultation report dictated by Rebeca Vo APN. Significant elevation of the LFT mainly transaminases more in favor of congestive liver other differential diagnoses includes drug induced viral hepatitis less likely Would recommend LDH level, PT/INR to follow-up Ultrasound scan done before was reviewed 05/19/17 23:36
[2017-05-19] MEDS: Pantoprazole 40 mg EC Tab PO SCH (11:03)
--- NOTE | 2017-05-19 16:57 | CP.PCM.PN ---
<Roque Pierce - Last Filed: 05/19/17 17:05> Subjective - Date & Time of Evaluation Date of Evaluation: 05/19/17 Time of Evaluation: 16:53 - Subjective Subjective: Medicine progress note for Dr. Vizcarra - Roque Davis DO PGY - 1, Pt s/e bedside. He states he is doing well, s/p carotid stent placement POD 1. Patient is a little tired but states he is feeling okay. Spoke to [facility] regarding TCU. Patient will not qualify becasue of recent CVA. Instead, [facility] has accepted him. We are waiting for isnurance authorization. No further complaints at this time. Objective - Vital Signs/Intake and Output Vital Signs (last 24 hours): Temp Pulse Resp BP Pulse Ox 97.9 F 87 39 H 128/54 L 100 05/19/17 00:01 05/19/17 11:04 05/19/17 05:40 05/19/17 11:04 05/19/17 05:40 Intake and Output: 05/19/17 05/19/17 06:59 18:59 Intake Total 1180 Output Total 3600 Balance -2420 - Medications Medications: Current Medications Albuterol/Ipratropium (Duoneb 3 Mg/0.5 Mg (3 Ml) Ud) 3 ml IH [id number] [facility] Last Admin: 05/19/17 13:12 Dose: 3 ml Albuterol/Ipratropium (Duoneb 3 Mg/0.5 Mg (3 Ml) Ud) 3 ml IH Q2H PRN PRN Reason: Shortness of Breath Last Admin: 05/14/17 21:32 Dose: 3 ml Aspirin (Aspirin Chewable) 81 mg PO DAILY [facility] Last Admin: 05/19/17 11:13 Dose: 81 mg Atorvastatin Calcium (Lipitor) 40 mg PO DIN [facility] Last Admin: 05/17/17 18:17 Dose: 40 mg Clopidogrel Bisulfate (Plavix) 75 mg PO DAILY [facility] Last Admin: 05/19/17 11:03 Dose: 75 mg Diphenhydramine HCl (Benadryl) 25 mg PO HS PRN PRN Reason: Insomnia Last Admin: 05/18/17 23:58 Dose: 25 mg Furosemide (Lasix) 40 mg PO DAILY [facility] Last Admin: 05/19/17 11:02 Dose: 40 mg Heparin Sodium (Porcine) (Heparin) 5,000 units SC Q12 [facility] PRN Reason: Protocol Last Admin: 05/19/17 11:06 Dose: 5,000 units Sodium Chloride (Sodium Chloride 0.9%) 1,000 mls @ 90 mls/hr IV .Q11H7M [facility] Last Admin: 05/18/17 21:19 Dose: 90 mls/hr Insulin Human Regular (Humulin R Med) 0 units SC ACHS [facility] PRN Reason: Protocol Last Admin: 05/19/17 12:44 Dose: 3 units Lisinopril (Zestril) 10 mg PO DAILY [facility] Last Admin: 05/19/17 11:04 Dose: 10 mg Pantoprazole Sodium (Protonix Ec Tab) 40 mg PO ACB [facility] Last Admin: 05/19/17 11:03 Dose: 40 mg - Labs Labs: 05/19/17 05:30 05/19/17 05:30 PT 14.9 SECONDS (9.4-12.5) H 05/14/17 06:30 INR 1.35 (0.93-1.08) H 05/14/17 06:30 APTT 28.4 Seconds (25.1-36.5) 05/13/17 15:54 - Additional Findings Additional findings: Phys Exam: VS as below Const'l: a&o x 4, nad Head/Neck: neck supple, no jvd, trachea midline, carotid midline, no cervical /head mass Eyes: rishi, nonicteric sclera, eom intact ENT: auditory acuity grossly intact, throat not congested, no nasal deformity Cardio: rrr, no m/r/g, no carotid bruit, nml s1, s2 Pulm: no accessory muscle use, equal nml breath sounds bilaterally, ctab Abd: s/nt/nd, nbs x 4 q, no palpable masses Derm: no rashes, no ulcers, no lesions Extr: +dorsalis pedis and tibialis posterior pulses diminished on RLE, but sensation and motor in tact - slightly cold to touch; no edema, no cyanosis, no calf tenderness, no lesions, no varicosities Neuro: +LLE 3/5 muscle strength - now 4/5; +slightly slurred speech-much improved; cn II-XII grossly intact, ue and le 5/5 muscle strength R; 5/5 LUE; no los ue, le Assessment and Plan - Assessment and Plan (Free Text) Assessment: A/P 66 y/o M with past medical history of CAD s/p CABG and AICD, NIDDM presented with acute ischemic right sided CVA. tPA was not given as patient may have been outside 4.5 hour window. Pt s/p carotid cea POD 1. Acute right ischemic CVA - Neuro consulted, recommend ASA, Neuro check q4h, Aspiration precaution - ASA, plavix, lipitor - Physical therapy eval: Acute Rehab; Moderate severe disability, inability to walk without assist - awaiting placement at [facility] - Pt s/p CEA POD 1, doing well ELLIOT likely 2/2 Dehydration - FeNa is .8%, indicating a prerenal etiology. Pt's bp is not elevated, so it does not seem like an DENISHA picture. BUN is trending down, was elevated on admission, so seems more likely 2/2 dehydration. Transaminitis, likely 2/2 Merepennem - Trending down - Hold Merrem at this time. - Per Dr. Barnes: Does not seem like hepatic shock, moreso a picture of congestive hepatopathy. * Abd U/s: fatty infiltrates * Hep panel: negative - Per GI: FU hepatitis panel - negative Trend LFT - downward Avoid hepatotoxic medication - merrem and lipitor held Diet as tolerated - Dysphagia diet on Plavix/Aspirin on Heparin SQ Elevated Troponins 2/2 Demand Ischemia - No anticoagulation at this time - Continue ASA and plavix - Echo completed, awaiting read - Cardiology following, Dr. García and Dr. Erickson * Last stress test earlier this year was negative * Unlikely that this is an NSTEMI - more likely trope elevation 2/2 renal disease or stroke * Pt was fluid overloaded in the office last week Recommendations: * Inpatient aggressive rehab * Safer for patient to get stent than endarterectomy Hx of HTN - Allow permissive HTN - Hold HTN meds - Continue to monitor BP NIDDM - HgbA1c 7.6% - ISS - Will monitor glucose closely PPX - Pepcid - SCDs Dispo: Pt awaiting insurance auth for d/c to [facility] <Tiago Vizcarra - Last Filed: 05/19/17 18:08> Objective - Vital Signs/Intake and Output Vital Signs (last 24 hours): Temp Pulse Resp BP Pulse Ox 97.9 F 87 39 H 128/54 L 100 05/19/17 00:01 05/19/17 11:04 05/19/17 05:40 05/19/17 11:04 05/19/17 05:40 Intake and Output: 05/19/17 05/19/17 06:59 18:59 Intake Total 1180 Output Total 3600 Balance -2420 - Medications Medications: Current Medications Albuterol/Ipratropium (Duoneb 3 Mg/0.5 Mg (3 Ml) Ud) 3 ml IH [id number] [facility] Last Admin: 05/19/17 13:12 Dose: 3 ml Albuterol/Ipratropium (Duoneb 3 Mg/0.5 Mg (3 Ml) Ud) 3 ml IH Q2H PRN PRN Reason: Shortness of Breath Last Admin: 05/14/17 21:32 Dose: 3 ml Aspirin (Aspirin Chewable) 81 mg PO DAILY [facility] Last Admin: 05/19/17 11:13 Dose: 81 mg Atorvastatin Calcium (Lipitor) 40 mg PO DIN [facility] Last Admin: 05/17/17 18:17 Dose: 40 mg Clopidogrel Bisulfate (Plavix) 75 mg PO DAILY [facility] Last Admin: 05/19/17 11:03 Dose: 75 mg Diphenhydramine HCl (Benadryl) 25 mg PO HS PRN PRN Reason: Insomnia Last Admin: 05/18/17 23:58 Dose: 25 mg Furosemide (Lasix) 40 mg PO DAILY [facility] Last Admin: 05/19/17 11:02 Dose: 40 mg Heparin Sodium (Porcine) (Heparin) 5,000 units SC Q12 [facility] PRN Reason: Protocol Last Admin: 05/19/17 11:06 Dose: 5,000 units Sodium Chloride (Sodium Chloride 0.9%) 1,000 mls @ 90 mls/hr IV .Q11H7M [facility] Last Admin: 05/18/17 21:19 Dose: 90 mls/hr Insulin Human Regular (Humulin R Med) 0 units SC ACHS [facility] PRN Reason: Protocol Last Admin: 05/19/17 17:16 Dose: 1 units Lisinopril (Zestril) 10 mg PO DAILY [facility] Last Admin: 05/19/17 11:04 Dose: 10 mg Pantoprazole Sodium (Protonix Ec Tab) 40 mg PO ACB [facility] Last Admin: 05/19/17 11:03 Dose: 40 mg - Labs Labs: 05/19/17 05:30 05/19/17 05:30 PT 14.9 SECONDS (9.4-12.5) H 05/14/17 06:30 INR 1.35 (0.93-1.08) H 05/14/17 06:30 APTT 28.4 Seconds (25.1-36.5) 05/13/17 15:54 Attending/Attestation - Attestation I have personally seen and examined this patient.: Yes I have fully participated in the care of the patient.: Yes I have reviewed all pertinent clinical information, including history, physical exam and plan: Yes Notes (Text): Acute right ischemic CVA - Neuro consulted, recommend ASA, Neuro check q4h, Aspiration precaution - ASA, plavix, lipitor - Physical therapy eval: Acute Rehab; Moderate severe disability, inability to walk without assist - Pt will need a stent outpatient ELLIOT likely 2/2 Dehydration - FeNa is .8%, indicating a prerenal etiology. Pt's bp is not elevated, so it does not seem like an DENISHA picture. BUN is trending down, was elevated on admission, so seems more likely 2/2 dehydration. Transaminitis, likely 2/2 Merepennem - Hold Merrem at this time. Elevated Troponins 2/2 Demand Ischemia doing well post ICA stent
[2017-05-20] MEDS: Albuterol-Ipratrop 3 mg / 0.5 (3 ml) UD IH SCH ×4 (02:08→20:02)
[2017-05-20 06:00] LABS: BASO # 0.03 K/mm3 (0.0-2.0); BASO % 0.4 % (0.0-3.0); EOS # 0.1 (0.0-0.7); EOS % 1.5 % (1.5-5.0); GRAN # 4.64 (1.4-6.5); GRAN % 67.5 % (50.0-68.0); HEMATOCRIT 40.7 % (42.0-52.0); LYMPH # 1.4 (1.2-3.4); MEAN CORPUSCULAR HEMOGLOBIN 27.6 pg (25.0-35.0); MEAN CORPUSCULAR HGB CONC 31.7 g/dl (31.0-37.0); MEAN PLATELET VOLUME 11.5 fl (7.0-11.0); MONO # 0.7 (0.1-0.6); MONO % 9.6 % (1.0-6.0); RED CELL DISTRIBUTION WIDTH 14.1 % (11.5-14.5); WHITE BLOOD COUNT 6.9 10^3/ul (4.5-11.0)
[2017-05-20 06:20] LABS: ALB/GLOB RATIO 1.4 (1.1-1.8); ALKALINE PHOSPHATASE 86 U/L (38-126); ALT/SGPT 786 U/L (7-56); AST/SGOT 473 U/L (17-59); BILIRUBIN,TOTAL 1.6 mg/dL (0.2-1.3); BLOOD UREA NITROGEN 22 mg/dL (7-21); CALCIUM 8.6 mg/dL (8.4-10.5); CARBON DIOXIDE 32 mmol/L (21-33); CHLORIDE 95 mmol/L (98-107); GFR AFRICAN-AMERICAN > 60; GLUCOSE,RANDOM 142 mg/dL (70-110); POTASSIUM 3.6 mmol/L (3.6-5.0); SODIUM 133 mmol/L (132-148); TOTAL PROTEIN 5.6 g/dL (5.8-8.3)
[2017-05-20] MEDS: Insulin Reg-MEDIUM-Coverage SC SCH ×3 (07:48→18:47)
[2017-05-20] MEDS: Pantoprazole 40 mg EC Tab PO SCH (10:47)
[2017-05-20] MEDS: Sodium Chloride 0.9% 1,000 ML IV SCH (10:54)
--- NOTE | 2017-05-20 17:26 | CP.PCM.PN ---
<Roque Pierce - Last Filed: 05/20/17 18:47> Subjective - Date & Time of Evaluation Date of Evaluation: 05/20/17 Time of Evaluation: 17:23 - Subjective Subjective: Medicine progress note for Dr. Benjamín Davis DO PGY - 1, Pager [phone] Pt s/e bedside. He states he is doing well, s/p carotid stent placement POD 2. Patient is a little tired but states he is feeling okay. Pt states he has regained much of his strength back and states that he is feeling well. No further complaints at this time. Objective - Vital Signs/Intake and Output Vital Signs (last 24 hours): Temp Pulse Resp BP Pulse Ox 97.6 F 88 19 92/59 L 97 05/20/17 16:57 05/20/17 16:57 05/20/17 16:57 05/20/17 16:57 05/20/17 16:57 Intake and Output: 05/20/17 05/20/17 06:59 18:59 Intake Total 660 1080 Output Total 500 400 Balance 160 680 - Medications Medications: Current Medications Albuterol/Ipratropium (Duoneb 3 Mg/0.5 Mg (3 Ml) Ud) 3 ml IH [id number] [facility] Last Admin: 05/20/17 14:16 Dose: 3 ml Albuterol/Ipratropium (Duoneb 3 Mg/0.5 Mg (3 Ml) Ud) 3 ml IH Q2H PRN PRN Reason: Shortness of Breath Last Admin: 05/14/17 21:32 Dose: 3 ml Aspirin (Aspirin Chewable) 81 mg PO DAILY [facility] Last Admin: 05/20/17 10:46 Dose: 81 mg Atorvastatin Calcium (Lipitor) 40 mg PO DIN [facility] Last Admin: 05/17/17 18:17 Dose: 40 mg Carvedilol (Coreg) 6.25 mg PO BID [facility] Last Admin: 05/20/17 10:47 Dose: 6.25 mg Clopidogrel Bisulfate (Plavix) 75 mg PO DAILY [facility] Last Admin: 05/20/17 10:47 Dose: 75 mg Diphenhydramine HCl (Benadryl) 25 mg PO HS PRN PRN Reason: Insomnia Last Admin: 05/19/17 23:35 Dose: 25 mg Furosemide (Lasix) 40 mg PO DAILY [facility] Last Admin: 05/20/17 10:47 Dose: 40 mg Heparin Sodium (Porcine) (Heparin) 5,000 units SC Q12 [facility] PRN Reason: Protocol Last Admin: 05/20/17 10:47 Dose: 5,000 units Hydrocortisone (Cortizone 2.5% Cream) 1 applic TOP BID PRN PRN Reason: Itching / Pruritus Sodium Chloride (Sodium Chloride 0.9%) 1,000 mls @ 90 mls/hr IV .Q11H7M [facility] Last Admin: 05/20/17 10:54 Dose: 90 mls/hr Insulin Human Regular (Humulin R Med) 0 units SC ACHS [facility] PRN Reason: Protocol Last Admin: 05/20/17 13:08 Dose: 3 units Lisinopril (Zestril) 10 mg PO DAILY [facility] Last Admin: 05/20/17 10:47 Dose: 10 mg Pantoprazole Sodium (Protonix Ec Tab) 40 mg PO ACB [facility] Last Admin: 05/20/17 10:47 Dose: 40 mg - Labs Labs: 05/20/17 05:00 05/20/17 05:00 PT 14.9 SECONDS (9.4-12.5) H 05/14/17 06:30 INR 1.35 (0.93-1.08) H 05/14/17 06:30 APTT 28.4 Seconds (25.1-36.5) 05/13/17 15:54 - Additional Findings Additional findings: Phys Exam: VS as below Const'l: +patient more alert and less confused than in the past; a&o x 4, nad Head/Neck: neck supple, no jvd, trachea midline, carotid midline, no cervical /head mass Eyes: rishi, nonicteric sclera, eom intact ENT: auditory acuity grossly intact, throat not congested, no nasal deformity Cardio: rrr, no m/r/g, no carotid bruit, nml s1, s2 Pulm: no accessory muscle use, equal nml breath sounds bilaterally, ctab Abd: s/nt/nd, nbs x 4 q, no palpable masses Derm: no rashes, no ulcers, no lesions Extr: +dorsalis pedis and tibialis posterior pulses diminished on RLE, but sensation and motor in tact - slightly cold to touch; no edema, no cyanosis, no calf tenderness, no lesions, no varicosities Neuro: +LLE 3/5 muscle strength - now 4/5; +slightly slurred speech-much improved; cn II-XII grossly intact, ue and le 5/5 muscle strength R; 5/5 LUE; no los ue, le Assessment and Plan - Assessment and Plan (Free Text) Assessment: A/P 66 y/o M with past medical history of CAD s/p CABG and AICD, NIDDM presented with acute ischemic right sided CVA. tPA was not given as patient may have been outside 4.5 hour window. Pt s/p carotid cea POD 1. Acute right ischemic CVA - Neuro consulted, recommend ASA, Neuro check q4h, Aspiration precaution - ASA, plavix, lipitor - Physical therapy eval: Acute Rehab; Moderate severe disability, inability to walk without assist - awaiting placement at [facility] - Pt s/p CEA POD 1, doing well ELLIOT likely 2/2 Dehydration - FeNa is .8%, indicating a prerenal etiology. Pt's bp is not elevated, so it does not seem like an DENISHA picture. BUN is trending down, was elevated on admission, so seems more likely 2/2 dehydration. Transaminitis - Trending down - Hold Merrem at this time. - Per Dr. Barnes: Does not seem like hepatic shock, moreso a picture of congestive hepatopathy. * Abd U/s: fatty infiltrates * Hep panel: negative - Per GI: FU hepatitis panel - negative Trend LFT - downward Avoid hepatotoxic medication - merrem and lipitor held Diet as tolerated - Dysphagia diet on Plavix/Aspirin on Heparin SQ Elevated Troponins 2/2 Demand Ischemia - No anticoagulation at this time - Continue ASA and plavix - Echo completed, awaiting read - Cardiology following, Dr. García and Dr. Erickson * Last stress test earlier this year was negative * Unlikely that this is an NSTEMI - more likely trope elevation 2/2 renal disease or stroke * Pt was fluid overloaded in the office last week Recommendations: * Inpatient aggressive rehab * Safer for patient to get stent than endarterectomy Hx of HTN - Allow permissive HTN - Hold HTN meds - Continue to monitor BP NIDDM - HgbA1c 7.6% - ISS - Will monitor glucose closely PPX - Pepcid - SCDs Dispo: Pt awaiting insurance auth for d/c to [facility], and we will need to trend his transaminitis <Misael Butts - Last Filed: 05/20/17 19:38> Objective - Vital Signs/Intake and Output Vital Signs (last 24 hours): Temp Pulse Resp BP Pulse Ox 97.6 F 88 19 92/59 L 97 05/20/17 16:57 05/20/17 16:57 05/20/17 16:57 05/20/17 16:57 05/20/17 16:57 Intake and Output: 05/20/17 05/21/17 18:59 06:59 Intake Total 1080 Output Total 400 Balance 680 - Medications Medications: Current Medications Albuterol/Ipratropium (Duoneb 3 Mg/0.5 Mg (3 Ml) Ud) 3 ml IH [id number] [facility] Last Admin: 05/20/17 14:16 Dose: 3 ml Albuterol/Ipratropium (Duoneb 3 Mg/0.5 Mg (3 Ml) Ud) 3 ml IH Q2H PRN PRN Reason: Shortness of Breath Last Admin: 05/14/17 21:32 Dose: 3 ml Aspirin (Aspirin Chewable) 81 mg PO DAILY [facility] Last Admin: 05/20/17 10:46 Dose: 81 mg Atorvastatin Calcium (Lipitor) 40 mg PO DIN [facility] Last Admin: 05/17/17 18:17 Dose: 40 mg Carvedilol (Coreg) 6.25 mg PO BID [facility] Last Admin: 05/20/17 18:47 Dose: 6.25 mg Clopidogrel Bisulfate (Plavix) 75 mg PO DAILY [facility] Last Admin: 05/20/17 10:47 Dose: 75 mg Diphenhydramine HCl (Benadryl) 25 mg PO HS PRN PRN Reason: Insomnia Last Admin: 05/19/17 23:35 Dose: 25 mg Furosemide (Lasix) 40 mg PO DAILY [facility] Last Admin: 05/20/17 10:47 Dose: 40 mg Heparin Sodium (Porcine) (Heparin) 5,000 units SC Q12 [facility] PRN Reason: Protocol Last Admin: 05/20/17 10:47 Dose: 5,000 units Hydrocortisone (Cortizone 2.5% Cream) 1 applic TOP BID PRN PRN Reason: Itching / Pruritus Sodium Chloride (Sodium Chloride 0.9%) 1,000 mls @ 90 mls/hr IV .Q11H7M [facility] Last Admin: 05/20/17 10:54 Dose: 90 mls/hr Insulin Human Regular (Humulin R Med) 0 units SC ACHS [facility] PRN Reason: Protocol Last Admin: 05/20/17 18:47 Dose: Not Given Lisinopril (Zestril) 10 mg PO DAILY [facility] Last Admin: 05/20/17 10:47 Dose: 10 mg Pantoprazole Sodium (Protonix Ec Tab) 40 mg PO ACB [facility] Last Admin: 05/20/17 10:47 Dose: 40 mg - Labs Labs: 05/20/17 05:00 05/20/17 05:00 PT 14.9 SECONDS (9.4-12.5) H 05/14/17 06:30 INR 1.35 (0.93-1.08) H 05/14/17 06:30 APTT 28.4 Seconds (25.1-36.5) 05/13/17 15:54 Attending/Attestation - Attestation I have personally seen and examined this patient.: Yes I have fully participated in the care of the patient.: Yes I have reviewed all pertinent clinical information, including history, physical exam and plan: Yes Notes (Text): 05/20/17 19:36 Pateint seen and examined independently at bedside. Continue holding lipitor. Continue trending LFTs. vitals, notes and labs reviewed. Multi-speciality follow up ongoing. Patient reports no new symptoms, admits to good appetite. Awaiting disposition to acute rehab. Agree with the note and plan outlined above by the resident.
--- NOTE | 2017-05-20 21:52 | PN ---
DATE: 05/20/2017 SUBJECTIVE: The patient seen early this morning in 363, bed 1. Later on moved. No fever. No chills. PHYSICAL EXAMINATION: VITAL SIGNS: Temperature is 97, blood pressure is 92/50 and respiratory rate of 18. HEENT: Unremarkable. NECK: Supple. LUNGS: Has decreased breath sounds. HEART: Normal S1 and S2. ABDOMEN: Soft and nontender. LABORATORY DATA: Reveals the patient's white count is 6.9, hemoglobin are 12 and platelets of 175. Chemistry reveals a BUN of 22 and creatinine of 1.2. AST is 473 and ALT is 76. ASSESSMENT AND PLAN: This is a 66-year-old male who was seen early this morning hypoxic respiratory failure due to acute on chronic congestive heart failure, less likely with acute hepatitis with cholestasis, drug-induced; slowly improving and with a history of coronary artery disease currently bypass graft and automatic implantable cardioverter defibrillator placement, diabetes, history of hernia. Currently, the patient is off of antibiotics, had completed course of antibiotics. The patient is at risk of developing nosocomial infection. Brandon Delgadillo MD
--- NOTE | 2017-05-20 23:59 | CP.PCM.PN ---
Subjective - Date & Time of Evaluation Date of Evaluation: 05/20/17 - Subjective Subjective: p Objective - Vital Signs/Intake and Output Vital Signs (last 24 hours): Temp Pulse Resp BP Pulse Ox 97.6 F 88 19 92/59 L 97 05/20/17 16:57 05/20/17 16:57 05/20/17 16:57 05/20/17 16:57 05/20/17 16:57 Intake and Output: 05/20/17 05/21/17 18:59 06:59 Intake Total 1080 Output Total 400 Balance 680 - Medications Medications: Current Medications Albuterol/Ipratropium (Duoneb 3 Mg/0.5 Mg (3 Ml) Ud) 3 ml IH [id number] [facility] Last Admin: 05/20/17 20:02 Dose: 3 ml Albuterol/Ipratropium (Duoneb 3 Mg/0.5 Mg (3 Ml) Ud) 3 ml IH Q2H PRN PRN Reason: Shortness of Breath Last Admin: 05/14/17 21:32 Dose: 3 ml Aspirin (Aspirin Chewable) 81 mg PO DAILY [facility] Last Admin: 05/20/17 10:46 Dose: 81 mg Atorvastatin Calcium (Lipitor) 40 mg PO DIN [facility] Last Admin: 05/17/17 18:17 Dose: 40 mg Carvedilol (Coreg) 6.25 mg PO BID [facility] Last Admin: 05/20/17 18:47 Dose: 6.25 mg Clopidogrel Bisulfate (Plavix) 75 mg PO DAILY [facility] Last Admin: 05/20/17 10:47 Dose: 75 mg Diphenhydramine HCl (Benadryl) 25 mg PO HS PRN PRN Reason: Insomnia Last Admin: 05/19/17 23:35 Dose: 25 mg Furosemide (Lasix) 40 mg PO DAILY [facility] Last Admin: 05/20/17 10:47 Dose: 40 mg Heparin Sodium (Porcine) (Heparin) 5,000 units SC Q12 [facility] PRN Reason: Protocol Last Admin: 05/20/17 21:44 Dose: 5,000 units Hydrocortisone (Cortizone 2.5% Cream) 1 applic TOP BID PRN PRN Reason: Itching / Pruritus Insulin Human Regular (Humulin R Med) 0 units SC ACHS [facility] PRN Reason: Protocol Last Admin: 05/20/17 18:47 Dose: Not Given Lisinopril (Zestril) 10 mg PO DAILY [facility] Last Admin: 05/20/17 10:47 Dose: 10 mg Pantoprazole Sodium (Protonix Ec Tab) 40 mg PO ACB [facility] Last Admin: 05/20/17 10:47 Dose: 40 mg - Labs Labs: 05/20/17 05:00 05/20/17 05:00 PT 14.9 SECONDS (9.4-12.5) H 05/14/17 06:30 INR 1.35 (0.93-1.08) H 05/14/17 06:30 APTT 28.4 Seconds (25.1-36.5) 05/13/17 15:54 Assessment and Plan - Assessment and Plan (Free Text) Assessment: p
[2017-05-21] MEDS: Albuterol-Ipratrop 3 mg / 0.5 (3 ml) UD IH SCH ×4 (01:05→20:29)
[2017-05-21 06:58] LABS: ALB/GLOB RATIO 1.4 (1.1-1.8); ALKALINE PHOSPHATASE 76 U/L (38-126); ALT/SGPT 769 U/L (7-56); AST/SGOT 476 U/L (17-59); BILIRUBIN,TOTAL 1.2 mg/dL (0.2-1.3); BLOOD UREA NITROGEN 20 mg/dL (7-21); CALCIUM 8.6 mg/dL (8.4-10.5); CARBON DIOXIDE 28 mmol/L (21-33); CHLORIDE 98 mmol/L (98-107); GFR AFRICAN-AMERICAN > 60; GLUCOSE,RANDOM 119 mg/dL (70-110); SODIUM 134 mmol/L (132-148); TOTAL PROTEIN 5.6 g/dL (5.8-8.3)
[2017-05-21 07:10] LABS: BASO # 0.04 K/mm3 (0.0-2.0); BASO % 0.8 % (0.0-3.0); EOS # 0.1 (0.0-0.7); EOS % 2.5 % (1.5-5.0); GRAN # 3.23 (1.4-6.5); GRAN % 60.9 % (50.0-68.0); HEMATOCRIT 38.2 % (42.0-52.0); LYMPH # 1.4 (1.2-3.4); LYMPH % 26.2 % (22.0-35.0); MEAN CELL VOLUME 86.4 fl (80.0-105.0); MEAN CORPUSCULAR HEMOGLOBIN 27.4 pg (25.0-35.0); MEAN CORPUSCULAR HGB CONC 31.7 g/dl (31.0-37.0); MEAN PLATELET VOLUME 11.2 fl (7.0-11.0); MONO # 0.5 (0.1-0.6); MONO % 9.6 % (1.0-6.0); WHITE BLOOD COUNT 5.3 10^3/ul (4.5-11.0)
[2017-05-21] MEDS: Insulin Reg-MEDIUM-Coverage SC SCH ×5 (07:30→22:30)
[2017-05-21] MEDS: Pantoprazole 40 mg EC Tab PO SCH (10:25)
--- NOTE | 2017-05-21 10:27 | PN ---
DATE: 05/21/2017 SUBJECTIVE: The patient is seen lying in bed on telemetry. He is currently comfortable. Denies any chest pain or dyspnea. His edema is controlled. CURRENT MEDICATIONS: Include aspirin, Coreg 6.25 mg b.i.d., DuoNeb inhaler, heparin subcutaneous, insulin coverage, Lasix 40 mg daily, Lipitor 40 mg daily, Plavix 75 mg daily, Protonix 40 mg daily, and lisinopril 10 mg daily. OBJECTIVE: GENERAL: He s a middle-aged man, who appears comfortable at rest. VITAL SIGNS: His blood pressure is 90/60 with pulse of 60 and sinus, respirations are 14. He is afebrile. HEENT: No JVD. CHEST: Few scattered rhonchi. HEART: PMI displaced laterally with soft tones noted. Left-sided hemiparesis persists. ABDOMEN: Soft and nontender. Normoactive bowel sounds. EXTREMITIES: Trace ankle edema. DIAGNOSTIC DATA: Potassium 4.0, BUN and creatinine are 20 and 1.2, hemoglobin and hematocrit 12.1 and 38.2 with a white count of 5.3, and platelet count is 154,000. AST and ALT are 476 and 769, which continues to improve. IMPRESSION: 1. Recent cerebrovascular accident with residual left hemiparesis. 2. Known coronary artery disease, status post remote bypass surgery. 3. Severe left ventricular systolic dysfunction. 4. Status post implantable cardioverter defibrillator implant. 5. History of hypertension and diabetes. 6. Severe right internal carotid artery stenosis, status post carotid artery stenting. RECOMMENDATIONS: His current medications, we will continue, although his lisinopril dose will be reduced to avoid hypotensive episodes and also to allow for continued beta-jaime use. [facility], which is certainly appropriate. From a cardiac standpoint, he appears stable for discharge once medically cleared and the bed is available. We will continue to follow along as needed and also follow up as an outpatient upon discharge. Moisés Pa MD
--- NOTE | 2017-05-21 15:22 | CP.PCM.PN ---
<Roque Pierce - Last Filed: 05/21/17 15:18> Subjective - Date & Time of Evaluation Date of Evaluation: 05/21/17 Time of Evaluation: 15:18 - Subjective Subjective: Medicine progress note for Dr. Benjamín Davis DO PGY - 1, Pager [phone] Pt s/e bedside. He states he is doing well, s/p carotid stent placement POD 3. Patient is a little tired but states he is feeling okay. Overnight, patient had some itching and rash in his RAC. During our encounter, patient complains of a rash and pruritis on his right arm. No further complaints at this time. Objective - Vital Signs/Intake and Output Vital Signs (last 24 hours): Temp Pulse Resp BP Pulse Ox 98.1 F 61 20 90/57 L 100 05/21/17 08:11 05/21/17 10:26 05/21/17 08:11 05/21/17 10:26 05/21/17 08:11 Intake and Output: 05/21/17 05/21/17 06:59 18:59 Intake Total 540 875 Output Total 675 Balance -135 875 - Medications Medications: Current Medications Albuterol/Ipratropium (Duoneb 3 Mg/0.5 Mg (3 Ml) Ud) 3 ml IH [id number] [facility] Last Admin: 05/21/17 13:58 Dose: 3 ml Albuterol/Ipratropium (Duoneb 3 Mg/0.5 Mg (3 Ml) Ud) 3 ml IH Q2H PRN PRN Reason: Shortness of Breath Last Admin: 05/14/17 21:32 Dose: 3 ml Aspirin (Aspirin Chewable) 81 mg PO DAILY [facility] Last Admin: 05/21/17 10:22 Dose: 81 mg Atorvastatin Calcium (Lipitor) 40 mg PO DIN [facility] Last Admin: 05/17/17 18:17 Dose: 40 mg Carvedilol (Coreg) 6.25 mg PO BID [facility] Last Admin: 05/21/17 10:23 Dose: Not Given Clopidogrel Bisulfate (Plavix) 75 mg PO DAILY [facility] Last Admin: 05/21/17 10:24 Dose: 75 mg Diphenhydramine HCl (Benadryl) 25 mg PO HS PRN PRN Reason: Insomnia Last Admin: 05/19/17 23:35 Dose: 25 mg Furosemide (Lasix) 40 mg PO DAILY [facility] Last Admin: 05/21/17 10:24 Dose: Not Given Heparin Sodium (Porcine) (Heparin) 5,000 units SC Q12 [facility] PRN Reason: Protocol Last Admin: 05/21/17 10:24 Dose: 5,000 units Hydrocortisone (Cortizone 2.5% Cream) 1 applic TOP BID PRN PRN Reason: Itching / Pruritus Insulin Human Regular (Humulin R Med) 0 units SC ACHS [facility] PRN Reason: Protocol Last Admin: 05/21/17 13:21 Dose: 5 units Lisinopril (Zestril) 5 mg PO DAILY [facility] Last Admin: 05/21/17 10:26 Dose: Not Given Pantoprazole Sodium (Protonix Ec Tab) 40 mg PO ACB [facility] Last Admin: 05/21/17 10:25 Dose: 40 mg - Labs Labs: 05/21/17 05:00 05/21/17 05:00 PT 14.9 SECONDS (9.4-12.5) H 05/14/17 06:30 INR 1.35 (0.93-1.08) H 05/14/17 06:30 APTT 28.4 Seconds (25.1-36.5) 05/13/17 15:54 - Additional Findings Additional findings: VS as below Const'l: +patient more alert and less confused than in the past; a&o x 4, nad Head/Neck: neck supple, no jvd, trachea midline, carotid midline, no cervical /head mass Eyes: rishi, nonicteric sclera, eom intact ENT: auditory acuity grossly intact, throat not congested, no nasal deformity Cardio: rrr, no m/r/g, no carotid bruit, nml s1, s2 Pulm: no accessory muscle use, equal nml breath sounds bilaterally, ctab Abd: s/nt/nd, nbs x 4 q, no palpable masses Derm: no rashes, no ulcers, no lesions Extr: +dorsalis pedis and tibialis posterior pulses diminished on RLE, but sensation and motor in tact - slightly cold to touch; +urticarial patches on RUE ; no edema, no cyanosis, no calf tenderness, no lesions, no varicosities Neuro: +LLE 3/5 muscle strength - now 4/5; +slightly slurred speech-much improved; cn II-XII grossly intact, ue and le 5/5 muscle strength R; 5/5 LUE; no los ue, le Assessment and Plan - Assessment and Plan (Free Text) Assessment: A/P 66 y/o M with past medical history of CAD s/p CABG and AICD, NIDDM presented with acute ischemic right sided CVA. tPA was not given as patient may have been outside 4.5 hour window. Pt s/p carotid cea POD 1. Pruritic Rash - Steroid cream - Benadryl 25 - Does not appear infectious in nature Acute right ischemic CVA s/p CEA POD 3 - Neuro consulted, recommend ASA, Neuro check q4h, Aspiration precaution - ASA, plavix, lipitor - Pt reports a good appetite - Physical therapy eval: Acute Rehab; Moderate severe disability, inability to walk without assist - awaiting placement at [facility] ELLIOT likely 2/2 Dehydration - Resolved - FeNa is .8%, indicating a prerenal etiology. Pt's bp is not elevated, so it does not seem like an DENISHA picture. BUN is trending down, was elevated on admission, so seems more likely 2/2 dehydration. Transaminitis - Trending down - Hold Merrem at this time. - Per Dr. Barnes: Does not seem like hepatic shock, moreso a picture of congestive hepatopathy. * Abd U/s: fatty infiltrates * Hep panel: negative - Per GI: FU hepatitis panel - negative Trend LFT - downward Avoid hepatotoxic medication - merrem and lipitor held Diet as tolerated - Dysphagia diet on Plavix/Aspirin on Heparin SQ Elevated Troponins 2/2 Demand Ischemia - No anticoagulation at this time - Continue ASA and plavix - Echo completed: TR, MR, 10.4% EF. Biatrial englargement with dilated LV showing reduced sytolic function - Cardiology following, Dr. García and Dr. Erickson * Last stress test earlier this year was negative * Unlikely that this is an NSTEMI - more likely trope elevation 2/2 renal disease or stroke * Pt was fluid overloaded in the office last week Recommendations: * Inpatient aggressive rehab * Most recent note 05/21: Dr. Cam wants to cut his Lisinopril dosage to avoid hypotensive episodes and to allow for continued b-jaime use. Stable for discharge from cardiac standpoint Hx of HTN - Allow permissive HTN - Hold HTN meds - Continue to monitor BP NIDDM - HgbA1c 7.6% - ISS - Will monitor glucose closely PPX - Pepcid - SCDs Dispo: Pt awaiting insurance auth for d/c to [facility], and we will need to trend his transaminitis <Misael Butts - Last Filed: 05/21/17 18:52> Objective - Vital Signs/Intake and Output Vital Signs (last 24 hours): Temp Pulse Resp BP Pulse Ox 98.1 F 97 H 20 102/66 100 05/21/17 08:11 05/21/17 18:26 05/21/17 08:11 05/21/17 18:26 05/21/17 08:11 Intake and Output: 05/21/17 05/21/17 06:59 18:59 Intake Total 540 875 Output Total 675 Balance -135 875 - Medications Medications: Current Medications Albuterol/Ipratropium (Duoneb 3 Mg/0.5 Mg (3 Ml) Ud) 3 ml IH [id number] [facility] Last Admin: 05/21/17 13:58 Dose: 3 ml Albuterol/Ipratropium (Duoneb 3 Mg/0.5 Mg (3 Ml) Ud) 3 ml IH Q2H PRN PRN Reason: Shortness of Breath Last Admin: 05/14/17 21:32 Dose: 3 ml Aspirin (Aspirin Chewable) 81 mg PO DAILY [facility] Last Admin: 05/21/17 10:22 Dose: 81 mg Atorvastatin Calcium (Lipitor) 40 mg PO DIN [facility] Last Admin: 05/17/17 18:17 Dose: 40 mg Carvedilol (Coreg) 6.25 mg PO BID [facility] Last Admin: 05/21/17 18:26 Dose: Not Given Clopidogrel Bisulfate (Plavix) 75 mg PO DAILY [facility] Last Admin: 05/21/17 10:24 Dose: 75 mg Diphenhydramine HCl (Benadryl) 25 mg PO HS PRN PRN Reason: Insomnia Last Admin: 05/19/17 23:35 Dose: 25 mg Furosemide (Lasix) 40 mg PO DAILY [facility] Last Admin: 05/21/17 10:24 Dose: Not Given Heparin Sodium (Porcine) (Heparin) 5,000 units SC Q12 [facility] PRN Reason: Protocol Last Admin: 05/21/17 10:24 Dose: 5,000 units Hydrocortisone (Cortizone 2.5% Cream) 1 applic TOP BID PRN PRN Reason: Itching / Pruritus Insulin Human Regular (Humulin R Med) 0 units SC ACHS [facility] PRN Reason: Protocol Last Admin: 05/21/17 18:27 Dose: Not Given Lisinopril (Zestril) 5 mg PO DAILY [facility] Last Admin: 05/21/17 10:26 Dose: Not Given Pantoprazole Sodium (Protonix Ec Tab) 40 mg PO ACB [facility] Last Admin: 05/21/17 10:25 Dose: 40 mg - Labs Labs: 05/21/17 05:00 05/21/17 05:00 PT 14.9 SECONDS (9.4-12.5) H 05/14/17 06:30 INR 1.35 (0.93-1.08) H 05/14/17 06:30 APTT 28.4 Seconds (25.1-36.5) 05/13/17 15:54 Attending/Attestation - Attestation I have personally seen and examined this patient.: Yes I have fully participated in the care of the patient.: Yes I have reviewed all pertinent clinical information, including history, physical exam and plan: Yes Notes (Text): 05/21/17 18:51 Patient seen and examined independently. vitals and overnight issues reviewed.complaints of rash noted and Benadryl prescribed. Awaiting Acute rehab placement. Cardiology follow up appreciated. Agree with the remainder of plan outlined by the resident.
--- NOTE | 2017-05-21 18:09 | PN ---
DATE: 05/21/2017 SUBJECTIVE: The patient is in bed, in no acute distress, nontoxic. PHYSICAL EXAMINATION VITAL SIGNS: On exam, temperature is 98, blood pressure is 90/50, respiratory rate of 18. HEENT: Examination is unremarkable. NECK: Supple. LUNGS: Have decreased breath sounds. HEART: Normal S1, S2. ABDOMEN: Examination is soft, nontender. No organomegaly or rebound. LABORATORY DATA: Examination reveals a white count of 5.3, hemoglobin of 12, platelets of 154. Chemistries reveals a BUN of 20, creatinine of 1.2. Urinalysis is noted. Serology is noted. Blood cultures are no growth. ASSESSMENT AND PLAN: This a 66-year-old male with hypoxic respiratory failure due to acute on chronic congestive heart failure, acute hepatitis and cholelithiasis, drug induced, history of coronary artery disease, history of bypass graft and automatic implantable cardioverter-defibrillator placement, diabetic and history of hernia. Currently, the patient is completed a short course of antibiotics. Off of antibiotics, at risk for developing nosocomial infections. Brandon Delgadillo MD
--- NOTE | 2017-05-22 01:15 | PN ---
DATE: 05/21/2017 SUBJECTIVE: This patient was seen and evaluated earlier. The patient denies any abdominal discomfort. PHYSICAL EXAMINATION: VITAL SIGNS: Temperature 97, afebrile, blood pressure 102/66, pulse 87, respirations 18, O2 saturation nearly 100%. HEENT: Atraumatic and anicteric. NECK: Supple. HEART: S1 and S2 heard. LUNGS: Bilateral air entry present. ABDOMEN: Soft. No mass palpable. No tenderness. LABORATORY DATA: Hemoglobin 12.1, hematocrit 38.2, WBC 5.3, platelets 154. Chemistries, AST 476, ALT is 769. Alkaline phosphatase 76, normal. IMPRESSION AND PLAN: This 66-year-old patient status post cerebrovascular accident with residual left hemiparesis, coronary artery disease, status post coronary artery bypass grafting, congestive heart failure, status post automatic implantable cardioverter-defibrillator placement, right carotid stenosis status post carotid artery stent placement, had an elevated LFTs mainly transaminases planning is showing a downward trend, clinically is more suggestive of hepatic congestion or low prostate causing ischemia. Clinically improving. Followup with the LFTs, but his prophylaxis is negative. Thank you very much for allowing me to participate in the care of the patient. Nichole Hahn MD
[2017-05-22] MEDS: Albuterol-Ipratrop 3 mg / 0.5 (3 ml) UD IH SCH ×4 (01:46→19:34)
[2017-05-22 06:23] LABS: BASO # 0.02 K/mm3 (0.0-2.0); BASO % 0.3 % (0.0-3.0); EOS # 0.1 (0.0-0.7); EOS % 1.3 % (1.5-5.0); GRAN # 4.73 (1.4-6.5); HEMATOCRIT 40.6 % (42.0-52.0); LYMPH # 1.4 (1.2-3.4); LYMPH % 20.1 % (22.0-35.0); MEAN CORPUSCULAR HEMOGLOBIN 27.5 pg (25.0-35.0); MEAN PLATELET VOLUME 11.1 fl (7.0-11.0); MONO # 0.6 (0.1-0.6); MONO % 9.3 % (1.0-6.0); RED CELL DISTRIBUTION WIDTH 14.2 % (11.5-14.5); WHITE BLOOD COUNT 6.9 10^3/ul (4.5-11.0)
[2017-05-22 06:50] LABS: ALB/GLOB RATIO 1.4 (1.1-1.8); ALKALINE PHOSPHATASE 88 U/L (38-126); ALT/SGPT 791 U/L (7-56); AST/SGOT 409 U/L (17-59); BILIRUBIN,TOTAL 1.5 mg/dL (0.2-1.3); BLOOD UREA NITROGEN 20 mg/dL (7-21); CALCIUM 9.4 mg/dL (8.4-10.5); CARBON DIOXIDE 23 mmol/L (21-33); CHLORIDE 98 mmol/L (98-107); GFR AFRICAN-AMERICAN > 60; GLUCOSE,RANDOM 192 mg/dL (70-110); POTASSIUM 4.5 mmol/L (3.6-5.0); SODIUM 134 mmol/L (132-148); TOTAL PROTEIN 6.5 g/dL (5.8-8.3)
--- NOTE | 2017-05-22 08:29 | PN ---
DATE: 05/20/2017 SUBJECTIVE: The patient is seen sitting in a chair on telemetry. He is comfortable at rest. He is somewhat apprehensive about going to rehabilitation facility. His dyspnea is improved. He continues to have persistent left hemiparesis. CURRENT MEDICATIONS: Include aspirin, Plavix, DuoNeb inhaler, subcutaneous heparin, Lasix 40 mg daily, Lipitor 40 mg daily, Protonix 40 mg daily, Zestril 10 mg daily. PHYSICAL EXAMINATION: GENERAL: He is a middle-aged man who appears comfortable at the present time. VITAL SIGNS: His blood pressure is 106/64 with a pulse of 90, in sinus, respirations are 16. He is afebrile. HEENT: No JVD. CHEST: A few scattered rhonchi. HEART: PMI displaced laterally with soft tones noted. ABDOMEN: Soft and nontender with normoactive bowel sounds.. EXTREMITIES: Trace ankle edema with persistent left-sided hemiparesis. IMPRESSION: 1. 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 2. Coronary artery disease status post prior bypass surgery with severe left ventricular dysfunction. 3. [id number] congestive heart failure, systolic, clinically improved. 4. Rest of the problems as noted. RECOMMENDATIONS: His current medications will be continued. Beta-jaime therapy would be resumed. This was discontinued during this hospitalization. From a cardiac standpoint, he is stable to be transferred to an acute rehabilitation center once a bed available. Continued sodium and fluid restrictions are advised. Moisés Pa MD
[2017-05-22] MEDS: Insulin Reg-MEDIUM-Coverage SC SCH ×4 (08:31→22:18)
[2017-05-22] MEDS: Pantoprazole 40 mg EC Tab PO SCH (09:32)
--- NOTE | 2017-05-22 15:34 | CP.PCM.PN ---
<Roque Pierce - Last Filed: 05/22/17 15:31> Subjective - Date & Time of Evaluation Date of Evaluation: 05/22/17 Time of Evaluation: 15:31 - Subjective Subjective: Medicine progress note for Dr. Benjamín Davis DO PGY - 1, Pager [phone] Pt s/e bedside. He states he is feeling well. Pt again would like to go home, but I d/w him that he needs to go to a [facility] facility. No complaints at this time. Objective - Vital Signs/Intake and Output Vital Signs (last 24 hours): Temp Pulse Resp BP Pulse Ox 97.8 F 102 H 20 113/70 97 05/22/17 09:04 05/22/17 09:34 05/22/17 09:04 05/22/17 09:34 05/22/17 09:04 Intake and Output: 05/22/17 05/22/17 06:59 18:59 Output Total 500 Balance -500 - Medications Medications: Current Medications Albuterol/Ipratropium (Duoneb 3 Mg/0.5 Mg (3 Ml) Ud) 3 ml IH [id number] [facility] Last Admin: 05/22/17 13:52 Dose: 3 ml Albuterol/Ipratropium (Duoneb 3 Mg/0.5 Mg (3 Ml) Ud) 3 ml IH Q2H PRN PRN Reason: Shortness of Breath Last Admin: 05/14/17 21:32 Dose: 3 ml Aspirin (Aspirin Chewable) 81 mg PO DAILY [facility] Last Admin: 05/22/17 09:32 Dose: 81 mg Atorvastatin Calcium (Lipitor) 40 mg PO DIN [facility] Last Admin: 05/17/17 18:17 Dose: 40 mg Carvedilol (Coreg) 6.25 mg PO BID [facility] Last Admin: 05/22/17 09:34 Dose: 6.25 mg Clopidogrel Bisulfate (Plavix) 75 mg PO DAILY [facility] Last Admin: 05/22/17 09:33 Dose: 75 mg Diphenhydramine HCl (Benadryl) 25 mg PO HS PRN PRN Reason: Insomnia Last Admin: 05/22/17 00:07 Dose: 25 mg Furosemide (Lasix) 40 mg PO DAILY [facility] Last Admin: 05/22/17 09:32 Dose: 40 mg Heparin Sodium (Porcine) (Heparin) 5,000 units SC Q12 [facility] PRN Reason: Protocol Last Admin: 05/22/17 09:33 Dose: 5,000 units Hydrocortisone (Cortizone 2.5% Cream) 1 applic TOP BID PRN PRN Reason: Itching / Pruritus Last Admin: 05/22/17 00:06 Dose: 1 applic Insulin Human Regular (Humulin R Med) 0 units SC ACHS [facility] PRN Reason: Protocol Last Admin: 05/22/17 12:55 Dose: 3 units Lisinopril (Zestril) 5 mg PO DAILY [facility] Last Admin: 05/22/17 09:33 Dose: 5 mg Pantoprazole Sodium (Protonix Ec Tab) 40 mg PO ACB [facility] Last Admin: 05/22/17 09:32 Dose: 40 mg - Labs Labs: 05/22/17 05:15 05/22/17 05:15 PT 14.9 SECONDS (9.4-12.5) H 05/14/17 06:30 INR 1.35 (0.93-1.08) H 05/14/17 06:30 APTT 28.4 Seconds (25.1-36.5) 05/13/17 15:54 - Additional Findings Additional findings: VS as below Const'l: +patient more alert and less confused than in the past; a&o x 4, nad Head/Neck: neck supple, no jvd, trachea midline, carotid midline, no cervical /head mass Eyes: rishi, nonicteric sclera, eom intact ENT: auditory acuity grossly intact, throat not congested, no nasal deformity Cardio: rrr, no m/r/g, no carotid bruit, nml s1, s2 Pulm: no accessory muscle use, equal nml breath sounds bilaterally, ctab Abd: s/nt/nd, nbs x 4 q, no palpable masses Derm: no rashes, no ulcers, no lesions Extr: +dorsalis pedis and tibialis posterior pulses diminished on RLE, but sensation and motor in tact - slightly cold to touch; +urticarial patches on RUE ; no edema, no cyanosis, no calf tenderness, no lesions, no varicosities Neuro: +LLE 3/5 muscle strength - now 4/5; +slightly slurred speech-much improved; cn II-XII grossly intact, ue and le 5/5 muscle strength R; 5/5 LUE; no los ue, le Assessment and Plan - Assessment and Plan (Free Text) Assessment: A/P 66 y/o M with past medical history of CAD s/p CABG and AICD, NIDDM presented with acute ischemic right sided CVA. tPA was not given as patient may have been outside 4.5 hour window. Pt s/p carotid cea POD 1. Pruritic Rash - Steroid cream; Benadryl 25 - Does not appear infectious in nature Acute right ischemic CVA s/p CEA POD 3 - Neuro consulted, recommend ASA, Neuro check q4h, Aspiration precaution - ASA, plavix, lipitor - Pt reports a good appetite - Physical therapy eval: Acute Rehab; Moderate severe disability, inability to walk without assist - awaiting placement at [facility] ELLIOT likely 2/2 Dehydration - Resolved - FeNa is .8%, indicating a prerenal etiology. Pt's bp is not elevated, so it does not seem like an DENISHA picture. BUN is trending down, was elevated on admission, so seems more likely 2/2 dehydration. Transaminitis - Trending down - Hold Merrem at this time - Per Dr. Barnes: Does not seem like hepatic shock, moreso a picture of congestive hepatopathy. * Abd U/s: fatty infiltrates * Hep panel: negative - Per GI: FU hepatitis panel - negative Trend LFT - downward Avoid hepatotoxic medication - merrem and lipitor held Diet as tolerated - Dysphagia diet on Plavix/Aspirin on Heparin SQ Elevated Troponins 2/2 Demand Ischemia - No anticoagulation at this time - Continue ASA and plavix - Echo completed: TR, MR, 10.4% EF. Biatrial englargement with dilated LV showing reduced sytolic function - Cardiology following, Dr. García and Dr. Erickson * Last stress test earlier this year was negative * Unlikely that this is an NSTEMI - more likely trope elevation 2/2 renal disease or stroke * Pt was fluid overloaded in the office last week Recommendations: * Inpatient aggressive rehab * Most recent note 05/21: Dr. Cam wants to cut his Lisinopril dosage to avoid hypotensive episodes and to allow for continued b-jaime use. Stable for discharge from cardiac standpoint Hx of HTN - Allow permissive HTN - Hold HTN meds - Continue to monitor BP NIDDM - HgbA1c 7.6% - ISS - Will monitor glucose closely PPX - Pepcid - SCDs Dispo: Pt awaiting insurance auth for d/c to [facility], and we will need to trend his transaminitis <Qiana Luu Lina - Last Filed: 05/23/17 16:10> Objective - Vital Signs/Intake and Output Vital Signs (last 24 hours): Temp Pulse Resp BP Pulse Ox 98.8 F 84 20 90/56 L 96 05/23/17 08:29 05/23/17 08:29 05/23/17 08:29 05/23/17 09:53 05/23/17 08:29 Intake and Output: 05/23/17 05/23/17 06:59 18:59 Intake Total 300 Output Total 1000 Balance -700 - Labs Labs: 05/23/17 05:30 05/23/17 09:30 PT 14.9 SECONDS (9.4-12.5) H 05/14/17 06:30 INR 1.35 (0.93-1.08) H 05/14/17 06:30 APTT 28.4 Seconds (25.1-36.5) 05/13/17 15:54 Attending/Attestation - Attestation I have personally seen and examined this patient.: Yes I have fully participated in the care of the patient.: Yes I have reviewed all pertinent clinical information, including history, physical exam and plan: Yes Notes (Text): I have seen and examined the patient at bedside. Agree with the above note with the following additions/ exceptions: Briefly this is 66 year old male with history of CAD s/p CABG, AICD, DM-2, HTN , former smoker who was brought by EMS and code stroke was called. TPA was not given as he presented outside 4.5 hours window and clinically symptoms were improving. Patient is awake, alert, oriented to time, place and person. He is sitting up on bed and is requesting to be sent to rehab. He continues to have left sided mild weakness. CT head negative x2. MRI cannot be done as he has AICD. CT neck showed critical stenosis in R ICA and 50% in L ICA. He underwent stent placement. Continue aspirin, plavix and lipitor. Echo revealed biatrial enlargement, dilated LV with decreased LVEF, moderate MR and moderate TR. PT recommended acute rehab. Discussed with SW and CM. Awaiting placement. He also has transaminitis which is trending down. Upon discharge patient will follow up with Dr King. Patient states that he follows up with Dr King regularly and does not have PMD. Dr Qiana Luu
--- NOTE | 2017-05-22 17:25 | CP.PCM.PN ---
Subjective - Date & Time of Evaluation Date of Evaluation: 05/22/17 Time of Evaluation: 10:35 - Subjective Subjective: Comfortable on a chair, no fevers, not in distress, no nausea, no vomiting, no diarrhea. Objective - Vital Signs/Intake and Output Vital Signs (last 24 hours): Temp Pulse Resp BP Pulse Ox 97.8 F 102 H 20 113/70 97 05/22/17 09:04 05/22/17 09:34 05/22/17 09:04 05/22/17 09:34 05/22/17 09:04 Intake and Output: 05/22/17 05/22/17 06:59 18:59 Output Total 500 Balance -500 - Medications Medications: Current Medications Albuterol/Ipratropium (Duoneb 3 Mg/0.5 Mg (3 Ml) Ud) 3 ml IH [id number] [facility] Last Admin: 05/22/17 07:48 Dose: 3 ml Albuterol/Ipratropium (Duoneb 3 Mg/0.5 Mg (3 Ml) Ud) 3 ml IH Q2H PRN PRN Reason: Shortness of Breath Last Admin: 05/14/17 21:32 Dose: 3 ml Aspirin (Aspirin Chewable) 81 mg PO DAILY [facility] Last Admin: 05/22/17 09:32 Dose: 81 mg Atorvastatin Calcium (Lipitor) 40 mg PO DIN [facility] Last Admin: 05/17/17 18:17 Dose: 40 mg Carvedilol (Coreg) 6.25 mg PO BID [facility] Last Admin: 05/22/17 09:34 Dose: 6.25 mg Clopidogrel Bisulfate (Plavix) 75 mg PO DAILY [facility] Last Admin: 05/22/17 09:33 Dose: 75 mg Diphenhydramine HCl (Benadryl) 25 mg PO HS PRN PRN Reason: Insomnia Last Admin: 05/22/17 00:07 Dose: 25 mg Furosemide (Lasix) 40 mg PO DAILY [facility] Last Admin: 05/22/17 09:32 Dose: 40 mg Heparin Sodium (Porcine) (Heparin) 5,000 units SC Q12 [facility]NAHY PRN Reason: Protocol Last Admin: 05/22/17 09:33 Dose: 5,000 units Hydrocortisone (Cortizone 2.5% Cream) 1 applic TOP BID PRN PRN Reason: Itching / Pruritus Last Admin: 05/22/17 00:06 Dose: 1 applic Insulin Human Regular (Humulin R Med) 0 units SC ACHS [facility] PRN Reason: Protocol Last Admin: 05/22/17 08:31 Dose: 1 units Lisinopril (Zestril) 5 mg PO DAILY [facility] Last Admin: 05/22/17 09:33 Dose: 5 mg Pantoprazole Sodium (Protonix Ec Tab) 40 mg PO ACB [facility] Last Admin: 05/22/17 09:32 Dose: 40 mg - Labs Labs: 05/22/17 05:15 05/22/17 05:15 PT 14.9 SECONDS (9.4-12.5) H 05/14/17 06:30 INR 1.35 (0.93-1.08) H 05/14/17 06:30 APTT 28.4 Seconds (25.1-36.5) 05/13/17 15:54 - Constitutional Appears: Non-toxic, Chronically Ill - Head Exam Head Exam: NORMAL INSPECTION - Neck Exam Neck Exam: absent: Meningismus - Respiratory Exam Respiratory Exam: Decreased Breath Sounds - Cardiovascular Exam Cardiovascular Exam: +S1, +S2 - GI/Abdominal Exam GI & Abdominal Exam: Soft. absent: Tenderness Assessment and Plan - Assessment and Plan (Free Text) Plan: Assessment hypoxic respiratory failure, consider due to acute on chronic CHF, unlikely HCAP acute hepatitis with cholestasis, R/O drug-induced, R/O hepatic venous congestion, slowly improving R/O TIA CAD S/P CABG S/P AICD placement DM S/P hernia repair Plan we have d/c'ed Merrem and Doxycycline because of the transaminitis and cholestatis and will continue to monitor and trend (slowly improving); statin was also stopped by primary team; will monitor off antibiotics since he is at risk for nosocomial infections
[2017-05-23] MEDS: Albuterol-Ipratrop 3 mg / 0.5 (3 ml) UD IH SCH ×2 (01:23→08:29)
[2017-05-23] MEDS ORDERED: DiphenhydrAMINE 50 mg/ml Inj IVP STA (02:35)
--- NOTE | 2017-05-23 02:53 | PN ---
DATE: 05/22/2017 SUBJECTIVE: This patient was seen and evaluated earlier today. The patient is comfortable, not in acute distress, tolerating diet. PHYSICAL EXAMINATION: VITAL SIGNS: Temperature is 97.3, pulse 79, blood pressure 112/74. HEENT: Atraumatic. Anicteric. NECK: Supple. HEART: S1 and S2 heard. LUNGS: Bilateral air entry present. ABDOMEN: Soft. There is no mass palpable. No tenderness. EXTREMITIES: No cyanosis. No clubbing. LABORATORY DATA: Hemoglobin 13, hematocrit 40.6, platelets 178, WBC 6.9. LFT is showing downward trend. Total bilirubin 1.5, AST 149, ALT 791. IMPRESSION: This is 66-year-old patient with past medical history of cerebrovascular accident, status post carotid endarterectomy; coronary artery disease, status post coronary artery bypass grafting, status post automatic implantable cardioverter-defibrillator placement; diabetes mellitus, was found to have increased liver function tests mainly transaminases with total bilirubin. Now it is showing downward trend, most likely cause for this elevated liver function tests and transaminases is probably secondary to the low-flow state ischemia or hepatic congestion. We would recommend at this point was follow up of the liver function tests. The patient is on Plavix and aspirin, follow up on that. The patient has increased liver function tests and transaminases, now showing downward trend. Close follow up of the liver function tests and the INR. Thank you very much for allowing me to participate in the care of the patient. Nichole Hahn MD
--- NOTE | 2017-05-23 03:43 | PN ---
DATE: SUBJECTIVE: This patient was seen and evaluated earlier today. The patient is comfortable. No complaints of any abdominal pain. PHYSICAL EXAMINATION: VITAL SIGNS: Temperature is 97.3, blood pressure 112/74, respirations 20. HEENT: Atraumatic and anicteric. NECK: Supple. HEART: S1 and S2 heard. LUNGS: Bilateral air entry present. ABDOMEN: Soft. No tenderness. EXTREMITIES: No cyanosis. No clubbing. LABORATORY DATA: Hemoglobin 13, hematocrit 40, WBC is 6.9, platelets 178. Chemistry showed total bilirubin is 1.5, AST 409, ALT is 791. Alkaline phosphatase is normal. IMPRESSION: This is a 66-year-old patient with a past medical history of cerebrovascular accident with residual left hemiparesis, coronary artery disease, status post bypass grafting, history of congestive heart failure, automatic implantable cardioverter-defibrillator placement, percutaneous coronary intervention. The patient has mildly elevated transaminases. Consult was requested to follow up on that. The patient does have an elevated liver function test. History of coronary artery stent placement. The transaminases maybe showing a downward trend. The likely cause for this elevated liver function tests is probably related to his hepatic congestion versus low flow state ischemia. Overall, the patient is better at the present time. The management is only to follow up of the liver function tests. The patient is on aspirin and Plavix. We will follow up with liver function tests. We will continue to closely follow up his care and suggest further management based on the clinical course. Nichole Hahn MD
[2017-05-23 06:31] LABS: BASO # 0.03 K/mm3 (0.0-2.0); BASO % 0.5 % (0.0-3.0); EOS # 0.1 (0.0-0.7); GRAN # 3.39 (1.4-6.5); GRAN % 62.1 % (50.0-68.0); HEMATOCRIT 39.9 % (42.0-52.0); LYMPH # 1.4 (1.2-3.4); LYMPH % 26.3 % (22.0-35.0); MEAN CELL VOLUME 85.8 fl (80.0-105.0); MEAN CORPUSCULAR HEMOGLOBIN 27.5 pg (25.0-35.0); MEAN CORPUSCULAR HGB CONC 32.1 g/dl (31.0-37.0); MEAN PLATELET VOLUME 11.4 fl (7.0-11.0); MONO # 0.5 (0.1-0.6); MONO % 9.1 % (1.0-6.0); RED CELL DISTRIBUTION WIDTH 14.3 % (11.5-14.5); WHITE BLOOD COUNT 5.5 10^3/ul (4.5-11.0)
[2017-05-23 08:30] VITALS: PULSE 84; RESP 20; TEMP 98.8; O2SAT 96
[2017-05-23] MEDS: Insulin Reg-MEDIUM-Coverage SC SCH (08:35)
[2017-05-23] MEDS: Pantoprazole 40 mg EC Tab PO SCH (09:53)
[2017-05-23 10:01] VITALS: BP 90/56
[2017-05-23 10:11] LABS: ALB/GLOB RATIO 1.5 (1.1-1.8); ALKALINE PHOSPHATASE 84 U/L (38-126); ALT/SGPT 573 U/L (7-56); AST/SGOT 157 U/L (17-59); BILIRUBIN,TOTAL 1.2 mg/dL (0.2-1.3); BLOOD UREA NITROGEN 22 mg/dL (7-21); CALCIUM 9.4 mg/dL (8.4-10.5); CARBON DIOXIDE 25 mmol/L (21-33); CHLORIDE 95 mmol/L (98-107); GFR AFRICAN-AMERICAN > 60; GLUCOSE,RANDOM 113 mg/dL (70-110); SODIUM 134 mmol/L (132-148); TOTAL PROTEIN 6.2 g/dL (5.8-8.3)
[2017-05-23] MEDS ORDERED: Influenza Vaccine 60 mcg/0.5 mL SYR (4YR UP) IM ONE (12:02)
--- NOTE | 2017-05-23 15:07 | PN ---
DATE: 05/23/2017 SUBJECTIVE: The patient is in bed in no acute distress, was seen earlier. PHYSICAL EXAMINATION: VITAL SIGNS: On exam temperature is 98, blood pressure 90/60, and respiratory rate 16. HEENT: Unremarkable. NECK: Supple. LUNGS: Decreased breath sounds. HEART: Normal S1 and S2. ABDOMEN: Soft and nontender. LABORATORY DATA: Examination reveals a white count of 5.5, hemoglobin of 12, and platelets of 163. BUN of 22 and creatinine of 1.3. Urinalysis is noted. Blood cultures are negative. ASSESSMENT AND PLAN: He is a 66-year-old male with hypoxic respiratory failure, acute on chronic congestive heart failure, acute hepatitis and cholelithiasis, drug-induced. Currently the patient is off of antibiotics, afebrile. Today's AST is 157, which is much improved from 409 and 573. ALT, which is also much improved. We will follow with you. Brandon Delgadillo MD
--- NOTE | 2017-05-24 11:33 | PQF RESP ---
05/24/17 Dr. Qiana uLu, Hypoxic respiratory failure is documented. Please specify whether this is acute, chronic, or both. Thank you. Clarification of your documentation is requested to better reflect the severity of illness and intensity of treatment of your patient. Indicators present [] Use of Home Oxygen [x] Respiratory rate > 28 or <8/min (Labored respirations) [] PCO2 > 50 mm Hg or (Hypercapnia) (somnolence) [] PaO2 < 60 mm Hg or Hypoxemia (confusion) [] ABG blood gas pH < 7.35 [x] SpO2 < 90% sat on Room Air [] Cyanosis [x] Unable to Speak in Full Sentences [x] Use of Accessory Muscles / Tripoding [] Wheezing [] Other: [] Location in the medical record that reflects the above clinical findings: [ progress notes] Treatment Provided: [ yes oxygen supplementation with nasal cannula, diuretics and IV antibiotics.] PHYSICIAN'S RESPONSE Based on your medical judgment of the clinical indicators outlined above, are you treating this patient for a known or suspected: [x] Acute Respiratory Failure (hypoxia or hypercapnia) [] Chronic Respiratory Failure (hypoxia or hypercapnia) [] Acute on Chronic Respiratory Failure (hypoxia or hypercapnia) [] Hypoxemia please specify ACUTE, CHRONIC or ACUTE on CHRONIC [] Other []_ [] If unable to determine, please check the box, sign and date. Present On Admission (POA) Indicator: [] Present at the time of admission [x] Not present at the time of admission [] Clinically Undetermined In responding to this query, please exercise your independent professional judgment. The fact that a question is asked does not imply that any particular answer is desired or expected. Thank you for your clarification on this documentation. If you have any questions please call:[ ] * Thank you, [ ] ux ui designer Chronic Respiratory Failure Description: Respiratory failure is a syndrome in which the respiratory system fails in one or both of its gas exchange functions: oxygenation and carbon dioxide elimination. In theory, respiratory failure is defined as a Pa02 value of <60 mm/Hg or a PaC02 of >50 mm/Hg. However, these values may be affected by renal compensation. Respiratory failure may be acute or chronic. While acute respiratory failure is characterized by life-threatening derangement in arterial blood gases and acid-base balance, the manifestations of chronic respiratory failure are less dramatic and may not be as readily apparent. Classifications: Respiratory failure may be classified as hypoxemic (usually characterized by Pa02 of <60 mm/Hg) or hypercapnic (usually characterized by PaC02 >50 mm/Hg) and either may be acute or chronic. Chronic hypercapnic respiratory failure develops over time and allows for renal compensation and an increase in bicarbonate concentration; therefore the pH is usually only slightly decreased. The distinction between acute and chronic hypoxemic respiratory failure cannot readily be made on the basis of ABGs; the clinical markers of chronic hypoxemia, such as polythycemia or cor pulmonale suggest a long standing disorder (chronic hypoxemic respiratory failure). Clinical Indicators: dyspnea at rest or "chronic" dyspnea, concomitant conditions such as polycythemia or cor pulmonale, requirement for continuous oxygen support, forced expiratory volume in one second (FEV1) of 49 or less, pursed lip breathing, "barrel" chest, hyperinflation by CXR, muscle wasting, malnutrition/obesity, poor exercise capacity, peripheral edema, description as a "blue bloater" (usually associated with chronic, obstructive bronchitis) or "pink puffer" (usually associated with emphysema) Risks: Chronic Hypoxemic Respiratory Failure - COPD, pulmonary fibrosis, asthma , pulmonary arterial hypertension, granulomatous lung diseases, congenital heart disease, bronchiectasis, kyphoscoliosis, obesity; Chronic Hypercapnic Respiratory Failure - COPD, severe asthma, myasthenia gravis, polyneuropathy, polio, head and cervical spine injuries, obesity hypoventilation syndrome. Treatment: supplemental oxygen, bronchodilators, corticosteroids, adequate nutrition, lung transplant References: Am. J. Respir. Crit. Care Med. "Global Strategy for the Diagnosis, Management and Prevention of COPD: GOLD Exectuive Summary," Denisa Burris Anzueto - 2007; Proceedings of the [employer] "Mechanisms and Measurements of Dyspnea in COPD," Anurag - 2006; WebMD; Respiratory Failure, Tay Felix MD - 12/2005; Ezio's Principles of Internal Medicine, 17th edition. Acute Respiratory Failure Acute Respiratory Failure indicators include: ~Respirations >28 ~Air hunger ~Use of accessory muscles of respiration ~Inability to speak in full sentences Cyanosis ~Pulse ox <90% RA or <95% on O2 pH <7.35 or >7.45 ~pO2 < 60 mm Hg (or 10mm below COPD patient's baseline) ~pCO2 >50mm Hg (or 10mm above COPD patient's baseline) "Respiratory failure may be assigned as a principal diagnosis when it is the condition established after study to be chiefly responsible for occasioning admission to the hospital. The fact that the respiratory failure was managed without intubation and mechanical ventilation does not preclude its use." [facility], 3rd Qtr., 1988, p. 7 MTDD
--- NOTE | 2017-05-24 14:58 | CP.PCM.DIS ---
Provider - Provider Date of Admission: 05/13/17 16:50 Attending physician: Qiana Luu MD Primary care physician: Moisés Pa MD Hospital Course - Lab Results Lab Results: Micro Results 05/18/17 20:00 Naris MRSA Culture (Admit) - Final MRSA NOT DETECTED 05/14/17 17:15 Blood Blood Culture - Final NO GROWTH AFTER 5 DAYS 05/14/17 17:15 Blood Gram Stain - Final TEST NOT PERFORMED 05/14/17 17:45 Blood Blood Culture - Final NO GROWTH AFTER 5 DAYS 05/14/17 17:45 Blood Gram Stain - Final TEST NOT PERFORMED Most Recent Lab Values WBC 5.5 10^3/ul (4.5-11.0) D 05/23/17 05:30 RBC 4.65 10^6/uL (3.5-6.1) 05/23/17 05:30 Hgb 12.8 g/dL (14.0-18.0) L 05/23/17 05:30 Hct 39.9 % (42.0-52.0) L 05/23/17 05:30 MCV 85.8 fl (80.0-105.0) 05/23/17 05:30 MCH 27.5 pg (25.0-35.0) 05/23/17 05:30 MCHC 32.1 g/dl (31.0-37.0) 05/23/17 05:30 RDW 14.3 % (11.5-14.5) 05/23/17 05:30 Plt Count 163 10^3/uL (120.0-450.0) 05/23/17 05:30 MPV 11.4 fl (7.0-11.0) H 05/23/17 05:30 Gran % 62.1 % (50.0-68.0) 05/23/17 05:30 Lymph % (Auto) 26.3 % (22.0-35.0) 05/23/17 05:30 Beckham % (Auto) 9.1 % (1.0-6.0) H 05/23/17 05:30 Eos % (Auto) 2.0 % (1.5-5.0) 05/23/17 05:30 Baso % (Auto) 0.5 % (0.0-3.0) 05/23/17 05:30 Gran # 3.39 (1.4-6.5) 05/23/17 05:30 Lymph # 1.4 (1.2-3.4) 05/23/17 05:30 Beckham # 0.5 (0.1-0.6) 05/23/17 05:30 Eos # 0.1 (0.0-0.7) 05/23/17 05:30 Baso # 0.03 K/mm3 (0.0-2.0) 05/23/17 05:30 PT 14.9 SECONDS (9.4-12.5) H 05/14/17 06:30 INR 1.35 (0.93-1.08) H 05/14/17 06:30 APTT 28.4 Seconds (25.1-36.5) 05/13/17 15:54 D-Dimer, Quantitative 445 ng/mL (0-243) H 05/14/17 17:00 pCO2 36 mm/Hg (35-45) 05/19/17 06:09 pO2 162.0 mm/Hg (80-100) H 05/19/17 06:09 HCO3 25.6 mmol/L (21-28) 05/19/17 06:09 ABG pH 7.46 (7.35-7.45) H 05/19/17 06:09 ABG Total CO2 26.7 mmol.L (22-28) 05/19/17 06:09 ABG O2 Saturation 99.9 % (95-98) H 05/19/17 06:09 ABG O2 Content 18.3 ML/dl (15-23) 05/19/17 06:09 ABG Base Excess 2.0 mmol/L (-2.0-3.0) 05/19/17 06:09 ABG Hemoglobin 13.2 g/dL (11.7-17.4) 05/19/17 06:09 ABG Carboxyhemoglobin 2.1 % (0.5-1.5) H 05/19/17 06:09 POC ABG HHb (Measured) 0.1 % (0-5) 05/19/17 06:09 ABG Methemoglobin 0.8 % (0.0-3.0) 05/19/17 06:09 ABG O2 Capacity 18.3 mL/dl (16-24) 05/19/17 06:09 ABG Potassium 3.6 mmol/L (3.6-5.2) 05/18/17 21:50 VBG pH 7.43 (7.32-7.43) 05/13/17 20:25 VBG pCO2 41.0 (40-60) 05/13/17 20:25 VBG HCO3 27.2 mmol/l (21-28) 05/13/17 20:25 VBG Total CO2 28.5 mmol.L (22-28) H 05/13/17 20:25 VBG O2 Sat (Calc) 94.0 % (40-65) H 05/13/17 20:25 VBG Base Excess 2.6 mmol/L (0.0-2.0) H 05/13/17 20:25 VBG Potassium 4.3 mmol/L (3.6-5.2) 05/13/17 20:25 Hgb O2 Saturation 97.0 % (95.0-98.0) 05/19/17 06:09 Sodium 135.0 mmol/L (132-148) 05/18/17 21:50 Chloride 99.0 mmol/L (98-107) 05/18/17 21:50 Glucose 141 mg/dl (75-110) H 05/18/17 21:50 Lactate 1.7 mmol/L (0.7-2.1) 05/18/17 21:50 FiO2 36.0 % 05/19/17 06:09 Sodium 134 mmol/L (132-148) 05/23/17 09:30 Potassium 4.0 mmol/L (3.6-5.0) 05/23/17 09:30 Chloride 95 mmol/L (98-107) L 05/23/17 09:30 Carbon Dioxide 25 mmol/L (21-33) 05/23/17 09:30 Anion Gap 17 (10-20) 05/23/17 09:30 BUN 22 mg/dL (7-21) H 05/23/17 09:30 Creatinine 1.3 mg/dl (0.8-1.5) 05/23/17 09:30 Est GFR ( Amer) > 60 05/23/17 09:30 Est GFR (Non-Af Amer) 55 05/23/17 09:30 POC Glucose (mg/dL) 381 mg/dL (65-110) H 05/23/17 11:23 Random Glucose 113 mg/dL (70-110) H 05/23/17 09:30 Hemoglobin A1c 7.6 % (4.2-6.5) H 05/13/17 15:54 Calcium 9.4 mg/dL (8.4-10.5) 05/23/17 09:30 Phosphorus 3.2 mg/dL (2.5-4.5) 05/13/17 15:54 Magnesium 1.8 mg/dL (1.7-2.2) 05/13/17 15:54 Total Bilirubin 1.2 mg/dL (0.2-1.3) 05/23/17 09:30 AST 157 U/L (17-59) H D 05/23/17 09:30 ALT 573 U/L (7-56) H 05/23/17 09:30 Alkaline Phosphatase 84 U/L (38-126) 05/23/17 09:30 Lactate Dehydrogenase 1611 U/L (333-699) H 05/19/17 05:30 Total Creatine Kinase 119 U/L (35-230) 05/14/17 17:00 Troponin I 0.30 ng/mL H* D 05/14/17 17:00 NT-Pro-B Natriuret Pep 61669 pg/mL (0-450) H 05/14/17 17:00 Total Protein 6.2 g/dL (5.8-8.3) 05/23/17 09:30 Albumin 3.7 g/dL (3.0-4.8) 05/23/17 09:30 Globulin 2.4 gm/dL 05/23/17 09:30 Albumin/Globulin Ratio 1.5 (1.1-1.8) 05/23/17 09:30 Triglycerides 99 mg/dL (35-160) 05/13/17 15:54 Cholesterol 171 mg/dL (130-200) 05/13/17 15:54 LDL Cholesterol Direct 133 mg/dL (0-129) H 05/13/17 15:54 HDL Cholesterol 35 mg/dL (29-60) 05/13/17 15:54 Procalcitonin 0.12 NG/ML (0.19-0.49) L 05/14/17 17:00 TSH 3rd Generation 0.81 mIU/mL (0.46-4.68) 05/14/17 17:00 Arterial Blood Potassium 3.6 mmol/L (3.6-5.2) 05/18/17 21:50 Venous Blood Potassium 4.3 mmol/L (3.6-5.2) 05/13/17 20:25 Ur Random Creatinine 113 mg/dL 05/15/17 13:29 Ur Random Sodium 88 meq/L 05/15/17 13:29 Hepatitis A IgM Ab Negative (NEGATIVE) 05/18/17 19:25 Hep Bs Antigen Negative (NEGATIVE) 05/18/17 19:25 Hep B Core IgM Ab Negative (NEGATIVE) 05/18/17 19:25 Hepatitis C Antibody Negative (NEGATIVE) 05/18/17 19:25 Blood Type A POSITIVE 05/13/17 15:54 Blood Type Confirm A POSITIVE 05/13/17 17:00 Antibody Screen Negative 05/13/17 15:54 BBK History Checked No verified bt 05/13/17 15:54 Discharge Exam - Head Exam Head Exam: NORMAL INSPECTION Discharge Plan - Discharge Medications Prescriptions: Aspirin [Aspirin Chewable] 81 mg PO DAILY #60 chew Atorvastatin [Lipitor] 40 mg PO DIN #60 tab DiphenhydrAMINE [Benadryl] 25 mg PO HS PRN #30 cap PRN Reason: Insomnia Furosemide [Lasix] 40 mg PO DAILY #60 tab Hydrocortisone [Cortizone 2.5% CREAM] 1 applic TOP BID PRN #1 tube PRN Reason: Itching / Pruritus - Follow Up Plan Condition: GUARDED Disposition: REHAB FACILITY/REHAB UNIT Instructions: Peripheral Vascular Stent Placement (DC), Stroke (DC) Additional Instructions: 1. Please take your medications as prescribed - you had a stent put in and your blood thinners are crucial to sustained care 2. Please ensure that you get a follow up blood test called a 'CMP,' comprehensive metabolic panel 3. Should your symptoms return or worsen please return to the emergency room Referrals: Moisés Pa MD [Primary Care Provider] -
== END 2017-05-23 12:48 | DRG 34 ==
LOC: ED 15:23 → EDBD 16:50 → ERH 16:50 → 3RSO 18:59 → CCU 05-18 18:48 → 3RNO 05-19 12:36
PROVIDERS: ADMIT Internal Medicine; ATTEND Hospitalist
PROC: 037K3DZ Dilation of Right Internal Carotid Artery with Intraluminal Device, Percutaneous Approach (ICD-10-PCS; principal; 2017-05-18)
PROC: B31F1ZZ Fluoroscopy of Left Vertebral Artery using Low Osmolar Contrast (ICD-10-PCS; 2017-05-18)
PROC: 3E0234Z Introduction of Serum, Toxoid and Vaccine into Muscle, Percutaneous Approach (ICD-10-PCS; 2017-05-23)
DX: I63.511 Cerebral infarction due to unspecified occlusion or stenosis of right middle cerebral artery (principal); I21.4 Non-ST elevation (NSTEMI) myocardial infarction; J96.00 Acute respiratory failure, unspecified whether with hypoxia or hypercapnia; I50.23 Acute on chronic systolic (congestive) heart failure; N17.9 Acute kidney failure, unspecified; J18.9 Pneumonia, unspecified organism; I66.02 Occlusion and stenosis of left middle cerebral artery; I42.9 Cardiomyopathy, unspecified; I69.354 Hemiplegia and hemiparesis following cerebral infarction affecting left non-dominant side; B17.9 Acute viral hepatitis, unspecified; E11.51 Type 2 diabetes mellitus with diabetic peripheral angiopathy without gangrene; I11.0 Hypertensive heart disease with heart failure; E86.0 Dehydration; I48.91 Unspecified atrial fibrillation; E78.5 Hyperlipidemia, unspecified; I25.10 Atherosclerotic heart disease of native coronary artery without angina pectoris; I65.21 Occlusion and stenosis of right carotid artery; J45.909 Unspecified asthma, uncomplicated; K80.20 Calculus of gallbladder without cholecystitis without obstruction; L29.9 Pruritus, unspecified; Z79.02 Long term (current) use of antithrombotics/antiplatelets; Z79.82 Long term (current) use of aspirin; Z79.84 Long term (current) use of oral hypoglycemic drugs; Z79.899 Other long term (current) drug therapy; Z87.891 Personal history of nicotine dependence; Z95.0 Presence of cardiac pacemaker; Z95.1 Presence of aortocoronary bypass graft; Z95.5 Presence of coronary angioplasty implant and graft; Z95.810 Presence of automatic (implantable) cardiac defibrillator; R40.2412 Glasgow coma scale score 13-15, at arrival to emergency department; R74.0 Nonspecific elevation of levels of transaminase and lactic acid dehydrogenase [LDH]; T36.1X5A Adverse effect of cephalosporins and other beta-lactam antibiotics, initial encounter; Z23 Encounter for immunization